=== PATIENT | male | born 1940 | race Caucasian/White ===

== ENCOUNTER → 2017-09-22 14:41 | Outpatient (POV) | payer MEDICARE, OTHER, SELFPAY ==
[2017-09-22 14:52] VITALS: BP 183/117; PULSE 74; RESP 20; O2SAT 98
--- NOTE | 2017-09-22 14:56 | HMH.PAINSOAP ---
[facility] Pain Management SOAP Note Subjective:: This patient is a pleasant 77-year-old white male who we are treating for low back pain and lumbar radiculopathy symptoms as well as bilateral shoulder pain with degenerative joint disease. He had bilateral shoulder injections on his last visit. He did get great benefit from these injections for at least one week. His pain is starting to return however not as bad as previously. His worst pain today is in the left groin in the distribution of the left ilioinguinal/iliohypogastric nerves. I believe that he would benefit from a left ilioinguinal/iliohypogastric injection. We will schedule this for next Thursday. Objective:: Alert and oriented ?3 in no acute distress. Patient does have a normal gait. Tenderness over the left groin. Motor strength of the lower extremities is 5/5. There is no gross sensory deficit. There is decreased range of motion of upper extremities with bilateral shoulder pain. No gross sensory deficit of the upper extremities. Assessment:: Left inguinal neuralgia. Plan:: We will seek approval for a left iliohypogastric/ilioinguinal nerve block. If approved we will schedule for next Thursday
== END ==
PROVIDERS: PCP Family Medicine; Visit Provider Anesthesiology
DX: G58.8 Other specified mononeuropathies (principal)
CPT/HCPCS: 99212

== ENCOUNTER 2017-09-25 11:22 | Day surgery (SDC) | payer MEDICARE, OTHER, SELFPAY ==
[2017-09-25 12:15] VITALS: BP 140/95; BP 193/99; PULSE 68; PULSE 70; RESP 18; TEMP 36.3; O2SAT 97
[2017-09-25 13:10] VITALS: BP 190/98; PULSE 72; RESP 18
--- NOTE | 2017-09-25 13:11 | HMH.PMPROC ---
- Procedure Date: 09/25/17 Time: 13:11 Anesthesiologist:: Santana Belle MD Complications:: None Pre-procedure Diagnosis:: Left inguinal neuralgia Post-procedure Diagnosis:: same Indications for Procedure:: This patient is a pleasant 77-year-old white male who we are treating for low back pain and lumbar radiculopathy symptoms as well as bilateral shoulder pain. At his last follow-up visit he noted increasing left-sided groin pain in the distribution of the left ilioinguinal/iliohypogastric and genitofemoral nerves. He does not have any back pain most of his pain is in the groin radiating to the left testicle. We will do a left iliohypogastric/ilioinguinal/genitofemoral nerve block today to see if this will help with his pain symptoms. Procedure Details:: Informed consent was obtained and the risks and benefits of the procedure was explained to the patient. Patient was taken to the procedure room. The left groin was prepped using ChloraPrep. A 25-gauge needle was used and in a fanlike distribution with deposited 10 mL bupivacaine 0.25% and Depo-Medrol 40 mg in the distribution of the left ilioinguinal/iliohypogastric/genitofemoral nerves. The patient tolerated the procedure well with no complication. Plan and Disposition:: Follow up with him in 2 weeks. We will reevaluate his symptoms at that time.
--- NOTE | 2017-09-25 13:14 | P.PCN_ITS ---
- Procedure Date: 09/25/17 Time: 13:11 Anesthesiologist:: Santana Belle MD Complications:: None Pre-procedure Diagnosis:: Left inguinal neuralgia Post-procedure Diagnosis:: same Indications for Procedure:: This patient is a pleasant 77-year-old white male who we are treating for low back pain and lumbar radiculopathy symptoms as well as bilateral shoulder pain. At his last follow-up visit he noted increasing left-sided groin pain in the distribution of the left ilioinguinal/iliohypogastric and genitofemoral nerves. He does not have any back pain most of his pain is in the groin radiating to the left testicle. We will do a left iliohypogastric/ilioinguinal/ genitofemoral nerve block today to see if this will help with his pain symptoms. Procedure Details:: Informed consent was obtained and the risks and benefits of the procedure was explained to the patient. Patient was taken to the procedure room. The left groin was prepped using ChloraPrep. A 25-gauge needle was used and in a fanlike distribution with deposited 10 mL bupivacaine 0.25% and Depo-Medrol 40 mg in the distribution of the left ilioinguinal/iliohypogastric/genitofemoral nerves. The patient tolerated the procedure well with no complication. Plan and Disposition:: Follow up with him in 2 weeks. We will reevaluate his symptoms at that time.
[2017-09-25 13:32] VITALS: BP 150/85; PULSE 70; RESP 18; TEMP 36.1; O2SAT 96
== END 2017-09-25 13:13 | disposition home or self-care (01) ==
LOC: SC.PAINP 11:25
PROVIDERS: Family Provider Family Medicine; PCP Family Medicine; Visit Provider Anesthesiology
DX: N50.812 Left testicular pain (principal)
CPT/HCPCS: 64425; J1030

== ENCOUNTER 2017-10-06 16:56 | Emergency (ER) | payer MEDICARE, OTHER, SELFPAY ==
[2017-10-06 17:28] VITALS: BP 162/83; PULSE 77; RESP 20; TEMP 36.4; O2SAT 96; BMI 34.3
--- NOTE | 2017-10-06 17:36 | PC.NURSE ---
DEV OPS ENGINEER speaking with Dr Ram at this time.
--- NOTE | 2017-10-06 18:14 | HMH.EDUTC ---
[facility] [place] Disposition Clinical Impression: Anxiety Disposition: Home, Self-Care Condition on Discharge: Good Instructions: DI for Anxiety -- Adult, Anxiety and Panic Attacks (Alternative Therapy) Additional Instructions: Follow up with Dr Cruz in the morning If you began to have further attacks or feeling like you want to harm yourself or others go straight to ER for help Return if needed Take medication as prescribed for anxiety attacks Referrals: Arcadio Cruz MD [Primary Care Provider] - Time of Disposition: 18:35 Medical Decision Making - Medical Records Medical records reviewed: Yes: I reviewed the patient's medical records. Vital Signs: 10/06/17 17:28 Temperature 97.5 F L Temperature Source Temporal Artery Scan Pulse Rate [Left Brachial] 77 Respiratory Rate 20 Blood Pressure [Left Arm] 162/83 Blood Pressure Mean [Left Arm] 109 Blood Pressure Source [Left Arm] Automatic Cuff Blood Pressure Position [Left Arm] Sitting 02 Sat by Pulse Oximetry 96 Oxygen Delivery Method Room Air - Aleksander Inquiry Pt receiving controlled substance: No Aleksander was queried for this patient: No - Reevaluation(s) Time: 18:27 (Patient state that he took his anxiety medication that he is prescribed to take when he has an anxiety attack State that he didn't get to take it when he began having the anxiety so he was well into attack when he took the medication State that the medication wasn't working so he went by Dr Cruz office and they was closed so he came up here After arriving the medication began to work and now he feels much better ) [facility] HPI - General Stated complaint: Anxiety Attack Mode of Arrival: Ambulatory Source of Information: Patient Limitations: No Limitations Description of Symptoms (Recalled from Triage Doc. by RN): pt advises that he began having an anxiety attack two hours ago. pt took hydroxyzine 20mg a hour ago and feels that it made him worse. pt states i feel like ants are crawling on me and i cant stop crying HEENT Symptoms (Recalled from RN notes): No Resp Symptoms (Recalled from RN notes): No Skin Symptoms (Recalled from RN notes): No MS Symptoms (Recalled from RN notes): No Functional Status (Recalled from RN notes): n/a - History of Present Illness Provider Complaint: Patient states that he has a history of anxiety attacks State that earlier today he had an anxiety attack and he took his prescribed medication hydroyzine 25mg State that he didnt feel like it was working so he came in to get checked State that medication now feels like it is working he is no longer feeling anxious like he was and his skin is no longer crawling. State that he is feeling better - Related Data Allergies Allergy/AdvReac Type Severity Reaction Status Date / Time No Known Allergies Allergy Verified 10/06/17 17:36 - Worker's Comp Is this a Worker's Comp case?: No [facility] [place] History I have reviewed the patient's past medical history: Yes Medical History: Reports:: Hypertension Denies:: Cancer, Diabetes Mellitus Type 1, Diabetes Mellitus Type 2, MRSA, Seizures Other Medical History: Reports: Arthritis, Hypothyroidism, Sinus Problems. Denies: Blood Transfusion Reaction Laterality Cases: Left: Total Knee Replacement, Bilateral: Tonsillectomy, Total Hip Replacement Other Surgeries: No: Pacemaker Amputation: No Fractures: No - *Social History Smoking Status: Never smoker Alcohol Intake: never Occupational Status: retired Housing: house Household Members: spouse - Psychiatric History Expresses thoughts of harming self/others: None Suicide Plan Description: No Plan *Family Hx:: No significant family history ROS Obtained: Yes All systems reviewed & no additional complaints - Allergic/Immunologic Comments: anxiety attack earlier today Physical Exam - General General appearance: alert, in no apparent distress - ENT ENT exam: Present: normal exam, normal oropharynx, mucous membranes moist, TM's normal
--- NOTE | 2017-10-06 18:21 | ED_ITS ---
[facility] [place] Disposition Clinical Impression: Anxiety Disposition: Home, Self-Care Condition on Discharge: Good Instructions: DI for Anxiety -- Adult, Anxiety and Panic Attacks (Alternative Therapy) Additional Instructions: Follow up with Dr Cruz in the morning If you began to have further attacks or feeling like you want to harm yourself or others go straight to ER for help Return if needed Take medication as prescribed for anxiety attacks Referrals: Arcadio Cruz MD [Primary Care Provider] - Time of Disposition: 18:35 Medical Decision Making - Medical Records Medical records reviewed: Yes: I reviewed the patient's medical records. Vital Signs: 10/06/17 17:28 Temperature 97.5 F L Temperature Source Temporal Artery Scan Pulse Rate [Left Brachial] 77 Respiratory Rate 20 Blood Pressure [Left Arm] 162/83 Blood Pressure Mean [Left Arm] 109 Blood Pressure Source [Left Arm] Automatic Cuff Blood Pressure Position [Left Arm] Sitting 02 Sat by Pulse Oximetry 96 Oxygen Delivery Method Room Air - Aleksander Inquiry Pt receiving controlled substance: No Aleksander was queried for this patient: No - Reevaluation(s) Time: 18:27 (Patient state that he took his anxiety medication that he is prescribed to take when he has an anxiety attack State that he didn't get to take it when he began having the anxiety so he was well into attack when he took the medication State that the medication wasn't working so he went by Dr Cruz office and they was closed so he came up here After arriving the medication began to work and now he feels much better ) [facility] [place] HPI - General Stated complaint: Anxiety Attack Mode of Arrival: Ambulatory Source of Information: Patient Limitations: No Limitations Description of Symptoms (Recalled from Triage Doc. by RN): pt advises that he began having an anxiety attack two hours ago. pt took hydroxyzine 20mg a hour ago and feels that it made him worse. pt states i feel like ants are crawling on me and i cant stop crying HEENT Symptoms (Recalled from RN notes): No Resp Symptoms (Recalled from RN notes): No Skin Symptoms (Recalled from RN notes): No MS Symptoms (Recalled from RN notes): No Functional Status (Recalled from RN notes): n/a - History of Present Illness Provider Complaint: Patient states that he has a history of anxiety attacks State that earlier today he had an anxiety attack and he took his prescribed medication hydroyzine 25mg State that he didnt feel like it was working so he came in to get checked State that medication now feels like it is working he is no longer feeling anxious like he was and his skin is no longer crawling. State that he is feeling better - Related Data Allergies Allergy/AdvReac Type Severity Reaction Status Date / Time No Known Allergies Allergy Verified 10/06/17 17:36 - Worker's Comp Is this a Worker's Comp case?: No [facility] History I have reviewed the patient's past medical history: Yes Medical History: Reports:: Hypertension Denies:: Cancer, Diabetes Mellitus Type 1, Diabetes Mellitus Type 2, MRSA, Seizures Other Medical History: Reports: Arthritis, Hypothyroidism, Sinus Problems. Denies: Blood Transfusion Reaction Laterality Cases: Left: Total Knee Replacement, Bilateral: Tonsillectomy, Total Hip Replacement Other Surgeries: No: Pacemaker Amputation: No Fractures: No - *Social History Smoking Status: Never smoker Alcohol Intake: never
== END 2017-10-06 18:48 | disposition home or self-care (01) ==
PROVIDERS: Emergency Provider Nurse Practitioner; Family Provider Family Medicine; PCP Family Medicine
DX: F41.9 Anxiety disorder, unspecified (principal); I10 Essential (primary) hypertension; E03.9 Hypothyroidism, unspecified; Z95.0 Presence of cardiac pacemaker
CPT/HCPCS: G0463; 99202

== ENCOUNTER → 2017-10-19 13:02 | Outpatient (POV) | payer MEDICARE, OTHER, SELFPAY ==
[2017-10-19 14:04] VITALS: BP 181/92; PULSE 60; RESP 18; BMI 34.3
[2017-10-19 14:27] LABS: Amphetamine/Metha Screen,Urine Negative ng/mL (<1000); Barbiturates Screen,Urine Negative ng/mL (<200); Benzodiazepines Screen,Urine Negative ng/mL (200); Cannabinoid Screen,Urine Negative ng/mL (<50); Cocaine Screen,Urine Negative ng/g (<300); Methadone Screen,Urine Negative ng/mL (<300); Opiate Screen,Urine Negative ng/mL (<300); Phencyclidine Screen,Urine Negative ng/mL (<25)
--- NOTE | 2017-10-19 14:35 | HMH.PAINSOAP ---
[facility] Pain Management SOAP Note Subjective:: This patient is a pleasant 77-year-old white male who we are treating for low back pain and lumbar radiculopathy symptoms as well as left-sided groin pain. He is status post left iliohypogastric/ilioinguinal nerve block. He did not get much benefit from this injection. He also did not get much benefit from the last lumbar epidural steroid injection. His pain may be coming from his left SI joint. Does have a positive Haim's test. He is tender over the left SI joint. We will seek approval for left SI joint injection under fluoroscopy. Objective:: Alert and oriented ?3 in no acute distress. Patient does have an antalgic gait. Patient is tender over the left SI joint. Positive Haim's test on the left side. Motor strength of the lower extremities is 5/5. There is no gross sensory deficit. Assessment:: Degenerative disc disease of lumbar spine with lumbar radiculopathy symptoms. Sacroiliitis. Plan:: We will seek approval and plan on a left SI joint injection under fluoroscopy.
[2017-10-27 06:22] LABS: Opiates Negative (Cutoff=100)
== END ==
PROVIDERS: Family Provider Family Medicine; PCP Family Medicine; Visit Provider Anesthesiology
DX: M54.16 Radiculopathy, lumbar region (principal)
CPT/HCPCS: 80305; 80361; 99212; G0480

== ENCOUNTER → 2017-10-23 09:57 | Day surgery (SDC) | payer MEDICARE, OTHER, SELFPAY ==
[2017-10-23 10:11] VITALS: BP 136/70; PULSE 70; RESP 18; TEMP 36.4; O2SAT 97; BMI 75.7
--- NOTE | 2017-10-23 11:12 | P.PCN_ITS ---
- Procedure Date: 10/23/17 Time: 11:09 Anesthesiologist:: Santana Belle MD Complications:: None Pre-procedure Diagnosis:: Sacroiliitis Post-procedure Diagnosis:: Same Indications for Procedure:: This patient is a pleasant 77-year-old white male who we are treating for low back pain and lumbar radiculopathy symptoms as well as sacroiliitis. He had a left iliohypogastric/ilioinguinal nerve block to see if this will help with left -sided groin pain however this did not give him much benefit. He does have tenderness over left SI joint. He does have positive Haim's test on left side. We will do a left SI joint injection today to see if this gives him relief of his left groin pain Procedure Details:: Left SI joint injection under fluoroscopy Informed consent was obtained and the risks and benefits of the procedure was going to the patient. Patient was taken to the procedure room. Patient was placed prone on the procedure table. The left hip was prepped using ChloraPrep. The skin and subcutaneous tissues were anesthetized using lidocaine. I placed a 22-gauge spinal needle into the inferior aspect of the left SI joint. Needle placement was confirmed with dye. After this we injected 5 mL bupivacaine 0.25% and Depo-Medrol 40 mg into the left SI joint. The patient tolerated the procedure well with no complication. Plan and Disposition:: We will follow-up with him in 2 weeks. We will reevaluate his symptoms at that time.
[2017-10-23 11:23] VITALS: BP 154/80; PULSE 66; RESP 20; O2SAT 95
[2017-10-23 11:24] VITALS: BP 145/88; PULSE 22; RESP 20; O2SAT 98
[2017-10-23 11:29] VITALS: BP 142/76; PULSE 65; RESP 18; O2SAT 98
== END ==
PROVIDERS: Family Provider Family Medicine; PCP Family Medicine; Visit Provider Anesthesiology
DX: M46.1 Sacroiliitis, not elsewhere classified (principal)
CPT/HCPCS: 27096; G0260; J1030; Q9966

== ENCOUNTER → 2017-11-09 10:12 | Outpatient (POV) | payer MEDICARE, OTHER, SELFPAY ==
[2017-11-09 10:26] VITALS: BP 154/95; PULSE 72; RESP 20; O2SAT 98; BMI 31.5
--- NOTE | 2017-11-09 11:06 | HMH.PAINSOAP ---
[facility] Pain Management SOAP Note Subjective:: Pleasant 77-year-old white male who presents today with due to a flare in his pain. Patient had a SI joint back on the second month. He did well after this. Patient comes with a new complete back pain. Patient states on Thursday he woke up and was unable to move. Patient back pain is mid-level. He rates his pain a 5 out of 10 today patient is currently taking tramadol 50 mg 1 p.o. 3 times daily for muscle as well as gabapentin 600 mg 1 p.o. 3 times daily. Patient is unable to take anti-inflammatories due to heart surgery. Patient better and he however pain returned again on Thursday. ROS General: no recent weight change, no fever, no sleep disturbances Respiratory: no cough, no shortness of air, no recurring pulmonary infections, CPAP use Cardiovascular/Peripheral Vascular: No chest pain, No palpitations, no edema, no shortness of breath. Gastrointestinal: no incontinence, normal bowel movements reported Genitourinary: no incontinence Musculoskeletal: Back pain Psychiatric: normal mood/ affect Neurological: [denies weakness in extremities], uses cane for stability Objective:: Physical Exam General: Alert and oriented x3, no acute distress, pleasant and cooperative, [on room air] Lungs: Resps E/U, Symmetrical chest expansion Musculoskeletal: Flexion and extension of lumbar spine somewhat guarded secondary to pain, deep tendon reflexes normal, strength in upper and lower extremities [5/5], [abnormal gait noted] Neurological: speech clear, on site coordinator equal, no gross sensory deficits Assessment:: Sacroiliitis, chronic low back pain, degenerative disc disease lumbar spine with lumbar radiculopathy Plan:: We will plan to prescribe prednisone 20 mg 1 p.o. twice daily for 5 days. Patient unable to take NSAIDs at this time. We will follow-up with this patient in 2 months. Patient is instructed to call our office if pain does not improve or increases. This note was dictated using voice recognition software and may include omissions or errors
--- NOTE | 2017-11-09 11:10 | P.CONS_ITS ---
[facility] Pain Management SOAP Note Subjective:: Pleasant 77-year-old white male who presents today with due to a flare in his pain. Patient had a SI joint back on the second month. He did well after this. Patient comes with a new complete back pain. Patient states on Thursday he woke up and was unable to move. Patient back pain is mid-level. He rates his pain a 5 out of 10 today patient is currently taking tramadol 50 mg 1 p.o. 3 times daily for muscle as well as gabapentin 600 mg 1 p.o. 3 times daily. Patient is unable to take anti-inflammatories due to heart surgery. Patient better and he however pain returned again on Thursday. ROS General: no recent weight change, no fever, no sleep disturbances Respiratory: no cough, no shortness of air, no recurring pulmonary infections, CPAP use Cardiovascular/Peripheral Vascular: No chest pain, No palpitations, no edema, no shortness of breath. Gastrointestinal: no incontinence, normal bowel movements reported Genitourinary: no incontinence Musculoskeletal: Back pain Psychiatric: normal mood/ affect Neurological: [denies weakness in extremities], uses cane for stability Objective:: Physical Exam General: Alert and oriented x3, no acute distress, pleasant and cooperative, [ on room air] Lungs: Resps E/U, Symmetrical chest expansion Musculoskeletal: Flexion and extension of lumbar spine somewhat guarded secondary to pain, deep tendon reflexes normal, strength in upper and lower extremities [5/5], [abnormal gait noted] Neurological: speech clear, arborer equal, no gross sensory deficits Assessment:: Sacroiliitis, chronic low back pain, degenerative disc disease lumbar spine with lumbar radiculopathy Plan:: We will plan to prescribe prednisone 20 mg 1 p.o. twice daily for 5 days. Patient unable to take NSAIDs at this time. We will follow-up with this patient in 2 months. Patient is instructed to call our office if pain does not improve or increases. This note was dictated using voice recognition software and may include omissions or errors
--- NOTE | 2017-11-09 15:16 | PC.PHONENOTE ---
Rx for Prednisone 20mg BID x5 days phoned in to pt pharmacy per provider order
--- NOTE | 2017-11-26 09:14 | PC.PHONENOTE ---
called in Rx for Gabapentin 600mg TID with 2 refills to [facility] pharmacy
== END ==
PROVIDERS: Family Provider Family Medicine; PCP Family Medicine; Visit Provider Clinical Nurse Specialist Family Health
DX: M54.16 Radiculopathy, lumbar region (principal)
CPT/HCPCS: 99212

== ENCOUNTER 2017-12-01 08:50 | Day surgery (SDC) | payer MEDICARE, OTHER, SELFPAY ==
[2017-11-30 14:04] VITALS: BMI 34.3
[2017-12-01 09:49] VITALS: BP 147/90; PULSE 67; RESP 18; TEMP 36.4; O2SAT 95
[2017-12-01 11:00] LABS: Basophils % 0.6 % (0.1-2.0); Eosinophils # 0.3 K/mm3 (0.0-0.4); Eosinophils % 4.5 % (0.1-12.0); Hematocrit 43.1 % (42.0-52.0); Hemoglobin 14.4 g/dL (14.1-18.0); Lymphocytes # 1.1 K/mm3 (0.7-4.5); Lymphocytes % 16.6 K/mm3 (10-50); Mean Corpuscular HGB Conc 33.4 g/dL (31.8-35.4); Mean Platelet Volume 6.8 fl (7.4-10.4); Monocytes # 0.4 K/mm3 (0.1-1.0); Monocytes % 5.9 % (1.7-9.3); Neutrophils # 4.7 K/mm3 (1.8-7.8); Neutrophils % 72.4 % (37.0-80.0); Platelet Count 194 K/mm3 (142-424); Red Blood Count 4.64 M/mm3 (4.60-6.20); Red Cell Distribution Width 12.6 % (11.5-17.5); White Blood Count 6.5 K/mm3 (4.8-10.8)
[2017-12-01 12:59] LABS: Alanine Aminotransferase 34 U/L (12-78); Albumin Level 3.8 gm/dL (3.4-5.0); Albumin/Globulin Ratio 1.3 (1.1-1.8); Alkaline Phosphatase 66 U/L (46-116); Anion Gap 10.3 mEq/L (5-15); Aspartate Amino Transferase 22 U/L (15-37); Bilirubin,Total 0.5 mg/dL (0.2-1.0); Blood Urea Nitrogen 5 mg/dL (7-18); Calcium 8.9 mg/dL (8.5-10.1); Carbon Dioxide 31 mmol/L (21.0-32.0); Chloride 99 mmol/L (98-107); Creatinine Clearance Estimated 90 mL/min (0-300); Creatinine,Serum 0.94 mg/dL (0.70-1.30); Estimated Glomerular Filt Rate 78 ml/min (>60); GFR (African American) 94 ML/MIN (>60); Globulin 2.9 gm/dl (1.3-3.2); Glucose 96 mg/dL (74-106); Potassium 4.3 mmoL/L (3.5-5.1); Sodium 136 mmol/L (136-145); Total Protein,Serum 6.7 gm/dL (6.4-8.2)
[2017-12-02 08:32] LABS: Immunoglobulin A, Qn 99 mg/dL (61-437); Immunoglobulin G, Qn 728 mg/dL (700-1600)
[2017-12-02 10:31] LABS: Immunoglobulin M, Qn 92 mg/dL (15-143)
[2017-12-02 10:32] LABS: Folate 17.1 ng/mL (>3.0); Vitamin B12 624 pg/mL (232-1245)
== END 2017-12-01 10:20 | disposition home or self-care (01) ==
LOC: OUTP 08:53
PROVIDERS: Internal Medicine Cardiovascular Disease; Specialist; Family Provider Family Medicine; PCP Family Medicine; Visit Provider Ophthalmology
PROC: (CPT 66821; principal; 2017-12-01 10:00)
DX: G62.9 Polyneuropathy, unspecified; I42.9 Cardiomyopathy, unspecified; R20.8 Other disturbances of skin sensation; H26.492 Other secondary cataract, left eye
CPT/HCPCS: 66821; 36415; 80053; 82607; 82746; 82784; 83880; 85025

== ENCOUNTER → 2017-12-07 08:17 | Outpatient (POV) | payer MEDICARE, OTHER, SELFPAY | PROVIDERS: Family Provider Family Medicine; PCP Family Medicine; Visit Provider Specialist | DX: R20.8 Other disturbances of skin sensation (principal) | CPT/HCPCS: 95886; 95910 ==

== ENCOUNTER → 2017-12-07 10:10 | Outpatient (CLI) | payer MEDICARE, OTHER, SELFPAY ==
--- NOTE | 2017-12-07 10:15 | XR_ITS ---
XR cervical spine w flex/ext CLINICAL INDICATION: ITS.REASON: neck pain ORDERING PHYSICIAN: Teresa Gandara MD PATIENT AGE: 77 years COMPARISON: None FINDINGS: There is normal alignment. Multilevel degenerative disc disease is present from C3 to C7 severe in nature with decrease of disc space, osteosclerosis, and osteophyte formation. Mild foraminal narrowing is present on the right at C3-C4 C4-C5 and C5-C6 and on the left at C4-C5 C5-C6 and C6-C7. Incidental carotid artery calcifications are present along with mild biapical pleural thickening noted. No fracture or dislocation. No lytic or blastic change No cervical rib Flexion and extension views show no abnormal subluxation. C6-C7 space is not well delineated on the lateral view in the flexion position IMPRESSION: Cervical spondylosis with degenerative disc disease and osteophyte formation with foraminal narrowing as described above. No abnormal subluxation in flexion or extension. C6-C7 not included on the flexion views. Carotid artery disease
--- NOTE | 2017-12-07 16:02 | HMH.ITSHM ---
VENTYL GABAPENTIN PERCOCET
== END ==
PROVIDERS: Family Provider Family Medicine; PCP Family Medicine; Visit Provider Specialist
DX: M54.2 Cervicalgia (principal); M25.511 Pain in right shoulder; M25.512 Pain in left shoulder
CPT/HCPCS: 72052; 95886; 95910

== ENCOUNTER → 2017-12-08 11:18 | Outpatient (CLI) | payer MEDICARE, OTHER, SELFPAY ==
--- NOTE | 2017-12-08 11:21 | MR_ITS ---
MR cervical spine wo con, MR 3-d myelogram/MRCP HISTORY: PT states neck pain on LT side. Tingling LT shoulder X1-2 weeks. ITS.REASON: NECK PAIN ORDERING PHYSICIAN: Teresa Gandara MD PATIENT AGE: 77 years COMPARISON: X-RAY 12/07/17 TECHNIQUE: Standard multiplanar multiecho sequences are performed without contrast. 3-D MIP and myelographic images are also rendered and reviewed FINDINGS: There is normal alignment. The craniocervical junction has an unremarkable appearance C2-C3: Minimal bulging disc. C3-C4: Severe degenerative disc disease. Prominent uncovertebral osteophytes left more so than right with severe bilateral foraminal narrowing left greater than right and canal stenosis of 7 mm with mild flattening of the cord. C4-C5: Severe degenerative disc disease with severe uncovertebral hypertrophy/osteophytes bilaterally with severe bilateral foraminal narrowing and moderate canal stenosis of 7 mm. C5-C6: Severe degenerative disc disease with prominent central disc osteophyte complex along with bilateral uncovertebral hypertrophy. There is marked canal stenosis of the central canal measuring 4 mm with severe impingement upon and flattening of the cord with contour deformity of the cord at this level bowed posteriorly. Severe bilateral foraminal narrowing also noted. C6-C7: Degenerative disc disease with mild concentric bulging disc with narrowing of the canal at 9 mm. C7-T1: Degenerative disc disease with 2 mm anterolisthesis of C7. T1-T2: Degenerative disc disease with mild bulging disc. Increased T2 signal involves the anterior and inferior aspect of C7 with slight increased T1 signal at this region and may be related to a hemangioma IMPRESSION: Abnormal MRI of the cervical spine with multilevel degenerative disc disease C3-T2. There is resultant canal stenosis, prominent spurring of the uncovertebral joints with resultant canal stenosis and bilateral foraminal narrowing as detailed at each level above. This is most severe at the C5-C6 level. Please see above for detailed description at each level. Severe degenerative disc disease C5-C6 with prominent central disc osteophyte complex along with bilateral uncovertebral hypertrophy. There is marked canal stenosis of the central canal measuring 4 mm with severe impingement upon and flattening of the cord with contour deformity of the cord at this level bowed posteriorly. Severe bilateral foraminal narrowing also noted
== END ==
PROVIDERS: Family Provider Family Medicine; PCP Family Medicine; Visit Provider Specialist
DX: M54.2 Cervicalgia (principal); M25.511 Pain in right shoulder; M25.512 Pain in left shoulder; G62.9 Polyneuropathy, unspecified
CPT/HCPCS: 72141; 76376

== ENCOUNTER → 2017-12-14 08:55 | Outpatient (POV) | payer MEDICARE, OTHER, SELFPAY ==
[2017-12-14 09:08] VITALS: BP 146/90; PULSE 71; RESP 18; TEMP 36.6; O2SAT 99; BMI 33.9
--- NOTE | 2017-12-14 09:24 | HMH.PAINSOAP ---
[facility] Pain Management SOAP Note Subjective:: Patient is a pleasant 77-year-old white male who presents today to discuss his bilateral shoulder pain. Patient has recently been to neurology and had a nerve conduction study. Patient has been ruled that he does not have neuropathy in his feet however he does still experience nerve pain which is well controlled with his gabapentin. Patient is now having some neck and bilateral shoulder pain. Patient is unable to take anti-inflammatories due to cardiac history. Patient had recent MRI of the neck showing pathology. Patient rates his pain a 6 out of 10 today. He is interested in injective therapy. Patient has done well with lumbar epidurals and SI joint injections in the past. ROS General: no recent weight change, no fever, no sleep disturbances Respiratory: no cough, no shortness of air, no recurring pulmonary infections Cardiovascular/Peripheral Vascular: No chest pain, No palpitations, no edema, no shortness of breath. Gastrointestinal: no incontinence, normal bowel movements reported Genitourinary: no incontinence Musculoskeletal: Pain, bilateral shoulder pain Psychiatric: normal mood/ affect, [denies depression], [denies anxiety] Neurological: [denies weakness in extremities], [denies balance issues] Objective:: Physical Exam General: Alert and oriented x3, no acute distress, pleasant and cooperative, [on room air] Lungs: Resps E/U, Symmetrical chest expansion, [CTA bilateral] Eyes: PERRL Musculoskeletal: Flexion and extension of cervical spine somewhat guarded secondary to pain, deep tendon reflexes normal, strength in upper and lower extremities [5/5], slightly antalgic gait noted, negative drop arm test bilaterally Neurological: speech clear, curb builder equal, no gross sensory deficits Ordering Physician: Teresa Gandara MD Date of Service: 12/08/17 Procedure(s): MR cervical spine wo con Accession Number(s): [id number] cc: Anson Durand MD; Arcadio Cruz MD~ MR cervical spine wo con, MR 3-d myelogram/MRCP HISTORY: PT states neck pain on LT side. Tingling LT shoulder X1-2 weeks. ITS.REASON: NECK PAIN ORDERING PHYSICIAN: Teresa Gandara MD PATIENT AGE: 77 years COMPARISON: X-RAY 12/07/17 TECHNIQUE: Standard multiplanar multiecho sequences are performed without contrast. 3-D MIP and myelographic images are also rendered and reviewed FINDINGS: There is normal alignment. The craniocervical junction has an unremarkable appearance C2-C3: Minimal bulging disc. C3-C4: Severe degenerative disc disease. Prominent uncovertebral osteophytes left more so than right with severe bilateral foraminal narrowing left greater than right and canal stenosis of 7 mm with mild flattening of the cord. C4-C5: Severe degenerative disc disease with severe uncovertebral hypertrophy/osteophytes bilaterally with severe bilateral foraminal narrowing and moderate canal stenosis of 7 mm. C5-C6: Severe degenerative disc disease with prominent central disc osteophyte complex along with bilateral uncovertebral hypertrophy. There is marked canal stenosis of the central canal measuring 4 mm with severe impingement upon and flattening of the cord with contour deformity of the cord at this level bowed posteriorly. Severe bilateral foraminal narrowing also noted. C6-C7: Degenerative disc disease with mild concentric bulging disc with narrowing of the canal at 9 mm. C7-T1: Degenerative disc disease with 2 mm anterolisthesis of C7. T1-T2: Degenerative disc disease with mild bulging disc. Increased T2 signal involves the anterior and inferior aspect of C7 with slight increased T1 signal at this region and may be related to a hemangioma IMPRESSION: Abnormal MRI of the cervical spine with multilevel degenerative disc disease C3-T2. There is resultant canal stenosis, prominent spurring of the uncovertebral joints with resultant canal stenosis and bilateral foraminal narrowing as detailed at each leve
--- NOTE | 2017-12-14 09:31 | P.CONS_ITS ---
[facility] Pain Management SOAP Note Subjective:: Patient is a pleasant 77-year-old white male who presents today to discuss his bilateral shoulder pain. Patient has recently been to neurology and had a nerve conduction study. Patient has been ruled that he does not have neuropathy in his feet however he does still experience nerve pain which is well controlled with his gabapentin. Patient is now having some neck and bilateral shoulder pain. Patient is unable to take anti-inflammatories due to cardiac history. Patient had recent MRI of the neck showing pathology. Patient rates his pain a 6 out of 10 today. He is interested in injective therapy. Patient has done well with lumbar epidurals and SI joint injections in the past. ROS General: no recent weight change, no fever, no sleep disturbances Respiratory: no cough, no shortness of air, no recurring pulmonary infections Cardiovascular/Peripheral Vascular: No chest pain, No palpitations, no edema, no shortness of breath. Gastrointestinal: no incontinence, normal bowel movements reported Genitourinary: no incontinence Musculoskeletal: Pain, bilateral shoulder pain Psychiatric: normal mood/ affect, [denies depression], [denies anxiety] Neurological: [denies weakness in extremities], [denies balance issues] Objective:: Physical Exam General: Alert and oriented x3, no acute distress, pleasant and cooperative, [ on room air] Lungs: Resps E/U, Symmetrical chest expansion, [CTA bilateral] Eyes: PERRL Musculoskeletal: Flexion and extension of cervical spine somewhat guarded secondary to pain, deep tendon reflexes normal, strength in upper and lower extremities [5/5], slightly antalgic gait noted, negative drop arm test bilaterally Neurological: speech clear, 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 Tingling LT shoulder X1-2 weeks. ITS.REASON: NECK PAIN ORDERING PHYSICIAN: Teresa Gandara MD PATIENT AGE: 77 years COMPARISON: X-RAY 12/07/17 TECHNIQUE: Standard multiplanar multiecho sequences are performed without contrast. 3-D MIP and myelographic images are also rendered and reviewed FINDINGS: There is normal alignment. The craniocervical junction has an unremarkable appearance C2-C3: Minimal bulging disc. C3-C4: Severe degenerative disc disease. Prominent uncovertebral osteophytes left more so than right with severe bilateral foraminal narrowing left greater than right and canal stenosis of 7 mm with mild flattening of the cord. C4-C5: Severe degenerative disc disease with severe uncovertebral hypertrophy/osteophytes bilaterally with severe bilateral foraminal narrowing and moderate canal stenosis of 7 mm. C5-C6: Severe degenerative disc disease with prominent central disc osteophyte complex along with bilateral uncovertebral hypertrophy. There is marked canal stenosis of the central canal measuring 4 mm with severe impingement upon and flattening of the cord with contour deformity of the cord at this level bowed posteriorly. Severe bilateral foraminal narrowing also noted. C6-C7: Degenerative disc disease with mild concentric bulging disc with narrowing of the canal at 9 mm. C7-T1: Degenerative disc disease with 2 mm anterolisthesis of C7. T1-T2: Degenerative disc disease with mild bulging disc. Increased T2 signal involves the anterior and inferior asp
== END ==
PROVIDERS: Family Provider Family Medicine; PCP Family Medicine; Visit Provider Clinical Nurse Specialist Family Health
DX: M54.16 Radiculopathy, lumbar region (principal); M54.12 Radiculopathy, cervical region
CPT/HCPCS: 99212

== ENCOUNTER 2017-12-16 15:04 | Day surgery (SDC) | payer MEDICARE, OTHER, SELFPAY ==
[2017-12-16 15:45] VITALS: BP 131/77; PULSE 68; RESP 18; TEMP 36.6; O2SAT 97; BMI 33.7
--- NOTE | 2017-12-16 16:09 | HMH.PMPROC ---
- Procedure Date: 12/16/17 Time: 16:09 Anesthesiologist:: Santana Belle MD Complications:: None Pre-procedure Diagnosis:: Degenerative disc disease of cervical spine with cervical radiculopathy symptoms Post-procedure Diagnosis:: Same Indications for Procedure:: This patient is a pleasant 77-year-old white male who we are treating for neck pain with cervical radicular symptoms. He has pain radiating to both shoulders. He is done well with lumbar epidurals and SI joint injections in the past. We will do a cervical epidural steroid injection under fluoroscopy today. Procedure Details:: Cervical epidural steroid injection under fluoroscopy Informed consent was obtained and the risks and benefits of the procedure was explained to the patient. The patient was taken to the procedure room placed prone on the procedure table. The neck was prepped using ChloraPrep. The skin and subcutaneous tissues were anesthetized using lidocaine. I placed a 18-gauge epidural needle into the C5-C6 interspace and advanced using [id number] to air and fluoroscopic guidance. After confirmation of needle placement in the epidural space with dye, I injected 3 mL's lidocaine 1.5% and Depo-Medrol 80 mg. The patient tolerated the procedure well with no complications. Plan and Disposition:: We will follow-up with him in 2 weeks. We will reevaluate his symptoms at that time.
[2017-12-16 16:12] VITALS: BP 185/75; PULSE 80; RESP 18
[2017-12-16 16:14] VITALS: BP 156/74; PULSE 72; RESP 20
--- NOTE | 2017-12-16 16:17 | P.PCN_ITS ---
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 He has pain radiating to both shoulders. He is done well with lumbar epidurals and SI joint injections in the past. We will do a cervical epidural steroid injection under fluoroscopy today. Procedure Details:: Cervical epidural steroid injection under fluoroscopy Informed consent was obtained and the risks and benefits of the procedure was explained to the patient. The patient was taken to the procedure room placed prone on the procedure table. The neck was prepped using ChloraPrep. The skin and subcutaneous tissues were anesthetized using lidocaine. I placed a 18- gauge epidural needle into the C5-C6 interspace and advanced using loss-of- resistance to air and fluoroscopic guidance. After confirmation of needle placement in the epidural space with dye, I injected 3 mL's lidocaine 1.5% and Depo-Medrol 80 mg. The patient tolerated the procedure well with no complications. Plan and Disposition:: We will follow-up with him in 2 weeks. We will reevaluate his symptoms at that time.
[2017-12-16 16:38] VITALS: BP 149/78; PULSE 65; RESP 18; O2SAT 98
== END 2017-12-16 16:24 | disposition home or self-care (01) ==
LOC: SC.PAINP 15:06
PROVIDERS: Family Provider Family Medicine; PCP Family Medicine; Visit Provider Anesthesiology
DX: M50.10 Cervical disc disorder with radiculopathy, unspecified cervical region (principal)
CPT/HCPCS: 62321; J1040; Q9966

== ENCOUNTER → 2018-01-04 11:02 | Outpatient (POV) | payer MEDICARE, OTHER, SELFPAY ==
[2018-01-04 11:36] VITALS: BP 147/77; PULSE 70; RESP 18; O2SAT 98; BMI 33.4
--- NOTE | 2018-01-04 12:10 | HMH.PAINSOAP ---
[facility] Pain Management SOAP Note Subjective:: This patient is a pleasant 77-year-old white male who presents today for follow-up after cervical epidural steroid injection. Patient states he is 98% pain free in his neck. Patient's only complaint is some nerve numbness on his left ear going down into his left shoulder. Patient currently has a neurology consult for a nerve conduction study. Patient is doing well with his gabapentin 600 mg 1 p.o. 3 times daily. He states that he is having no side effects from the medication. Patient is interested in potentially using some compounding cream to help with this numbness he experiences in his ear neck and shoulder. Patient rates his pain only 1 out of 10 today. ROS General: no recent weight change, no fever, no sleep disturbances Respiratory: no cough, no shortness of air, no recurring pulmonary infections Cardiovascular/Peripheral Vascular: No chest pain, No palpitations, no edema, no shortness of breath. Gastrointestinal: no incontinence, normal bowel movements reported Genitourinary: no incontinence Musculoskeletal: Back pain, neck pain, left shoulder pain Psychiatric: normal mood/ affect Neurological: [denies weakness in extremities], [denies balance issues] Objective:: Physical Exam General: Alert and oriented x3, no acute distress, pleasant and cooperative, [on room air] Lungs: Resps E/U, Symmetrical chest expansion, Eyes: PERRL Musculoskeletal: Flexion and extension of cervical spine somewhat guarded secondary to pain, deep tendon reflexes normal, strength in upper and lower extremities [5/5], slightly antalgic gait noted Neurological: speech clear, facility coordinator equal, no gross sensory deficits Assessment:: Degenerative disc disease of the cervical spine with cervical radiculopathy symptoms Plan:: We will follow-up with this patient after his nerve conduction study patient is not in the need for a gabapentin refill at this time. We will order some compounding cream for this patient to see if this helps with his numbness in his left neck and shoulder. This note was dictated using voice recognition software and may contain errors or omissions
--- NOTE | 2018-01-04 12:13 | P.CONS_ITS ---
[facility] Pain Management SOAP Note Subjective:: This patient is a pleasant 77-year-old white male who presents today for follow- up after cervical epidural steroid injection. Patient states he is 98% pain free in his neck. Patient's only complaint is some nerve numbness on his left ear going down into his left shoulder. Patient currently has a neurology consult for a nerve conduction study. Patient is doing well with his gabapentin 600 mg 1 p.o. 3 times daily. He states that he is having no side effects from the medication. Patient is interested in potentially using some compounding cream to help with this numbness he experiences in his ear neck and shoulder. Patient rates his pain only 1 out of 10 today. ROS General: no recent weight change, no fever, no sleep disturbances Respiratory: no cough, no shortness of air, no recurring pulmonary infections Cardiovascular/Peripheral Vascular: No chest pain, No palpitations, no edema, no shortness of breath. Gastrointestinal: no incontinence, normal bowel movements reported Genitourinary: no incontinence Musculoskeletal: Back pain, neck pain, left shoulder pain Psychiatric: normal mood/ affect Neurological: [denies weakness in extremities], [denies balance issues] Objective:: Physical Exam General: Alert and oriented x3, no acute distress, pleasant and cooperative, [ on room air] Lungs: Resps E/U, Symmetrical chest expansion, Eyes: PERRL Musculoskeletal: Flexion and extension of cervical spine somewhat guarded secondary to pain, deep tendon reflexes normal, strength in upper and lower extremities [5/5], slightly antalgic gait noted Neurological: speech clear, ribbon weaver equal, no gross sensory deficits Assessment:: Degenerative disc disease of the cervical spine with cervical radiculopathy symptoms Plan:: We will follow-up with this patient after his nerve conduction study patient is not in the need for a gabapentin refill at this time. We will order some compounding cream for this patient to see if this helps with his numbness in his left neck and shoulder. This note was dictated using voice recognition software and may contain errors or omissions
== END ==
PROVIDERS: Family Provider Family Medicine; PCP Family Medicine; Visit Provider Clinical Nurse Specialist Family Health
DX: M54.12 Radiculopathy, cervical region (principal)
CPT/HCPCS: 99212

== ENCOUNTER → 2018-01-18 14:16 | Outpatient (POV) | payer MEDICARE, OTHER, SELFPAY | PROVIDERS: Family Provider Family Medicine; PCP Family Medicine; Visit Provider Specialist | DX: G62.9 Polyneuropathy, unspecified (principal); R20.2 Paresthesia of skin | CPT/HCPCS: 95886; 95908 ==

== ENCOUNTER → 2018-02-08 10:31 | Outpatient (POV) | payer MEDICARE, OTHER, SELFPAY ==
[2018-02-08 10:40] VITALS: BP 150/83; PULSE 61; RESP 18; O2SAT 97; BMI 33.5
--- NOTE | 2018-02-08 10:59 | HMH.PAINSOAP ---
[facility] Pain Management SOAP Note Subjective:: Patient is a pleasant 77-year-old white male who presents today for follow-up. Patient has done well with his cervical epidurals in the past. Patient is interested in pursuing another one. Patient has had a nerve conduction study which he states did not help him much. Patient has also started a compounding cream and he states he is having some success with that. Patient is interested in a repeat injection today. Patient rates his pain a 6 out of 10. Patient also had Brookneal in the past as needed. Patient would like to have a refill. Patient has not had this for over a year. ROS General: no recent weight change, no fever, no sleep disturbances Respiratory: no cough, no shortness of air, no recurring pulmonary infections Cardiovascular/Peripheral Vascular: No chest pain, No palpitations, no edema, no shortness of breath. Gastrointestinal: no incontinence, normal bowel movements reported Genitourinary: no incontinence Musculoskeletal: neck pain, left arm pain Psychiatric: normal mood/ affect, [denies depression], [denies anxiety] Neurological: [denies weakness in extremities], [denies balance issues] Objective:: Physical Exam General: Alert and oriented x3, no acute distress, pleasant and cooperative, [on room air] Lungs: Resps E/U, Symmetrical chest expansion, Eyes: PERRL Musculoskeletal: Flexion and extension of cervical spine somewhat guarded secondary to pain, deep tendon reflexes normal, strength in upper and lower extremities [5/5], normal gait noted Neurological: speech clear, 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 Patient has received 80-90% relief for 2 months after his last injection. Patient currently in physical therapy. I will follow-up with this patient after his injection. We will also give the patient 1 prescription for Brookneal 5 mg 1 p.o. twice daily. Patient and I had a discussion about his benzodiazepines along with his medication he understands the risks. Patient's MATEO reviewed and appropriate. Dr. Belle has reviewed this chart and agrees with this plan of care. Patient has been prescribed a controlled substance after being counseled on the medication, medication safety, and possible side effects. MATEO report has been obtained and reviewed prior to prescription and found to be appropriate. Opioid contract was reviewed and signed by the patient, and that they have agreed to all of the terms set forth by our compliance program. This note was dictated using voice recognition software and may contain errors or omissions
--- NOTE | 2018-02-08 11:03 | P.CONS_ITS ---
[facility] Pain Management SOAP Note Subjective:: Patient is a pleasant 77-year-old white male who presents today for follow-up. Patient has done well with his cervical epidurals in the past. Patient is interested in pursuing another one. Patient has had a nerve conduction study which he states did not help him much. Patient has also started a compounding cream and he states he is having some success with that. Patient is interested in a repeat injection today. Patient rates his pain a 6 out of 10. Patient also had Wing in the past as needed. Patient would like to have a refill. Patient has not had this for over a year. ROS General: no recent weight change, no fever, no sleep disturbances Respiratory: no cough, no shortness of air, no recurring pulmonary infections Cardiovascular/Peripheral Vascular: No chest pain, No palpitations, no edema, no shortness of breath. Gastrointestinal: no incontinence, normal bowel movements reported Genitourinary: no incontinence Musculoskeletal: neck pain, left arm pain Psychiatric: normal mood/ affect, [denies depression], [denies anxiety] Neurological: [denies weakness in extremities], [denies balance issues] Objective:: Physical Exam General: Alert and oriented x3, no acute distress, pleasant and cooperative, [ on room air] Lungs: Resps E/U, Symmetrical chest expansion, Eyes: PERRL Musculoskeletal: Flexion and extension of cervical spine somewhat guarded secondary to pain, deep tendon reflexes normal, strength in upper and lower extremities [5/5], normal gait noted Neurological: speech clear, rn physician office equal, no gross sensory deficits Assessment:: Degenerative disc disease of the cervical spine with cervical radiculopathy Plan:: We will schedule a C5-C6 cervical injection for this patient given the efficacy of it in the past. Patient has received 80-90% relief for 2 months after his last injection. Patient currently in physical therapy. I will follow-up with this patient after his injection. We will also give the patient 1 prescription for Wing 5 mg 1 p.o. twice daily. Patient and I had a discussion about his benzodiazepines along with his medication he understands the risks. Patient's MATEO reviewed and appropriate. Dr. Belle has reviewed this chart and agrees with this plan of care. Patient has been prescribed a controlled substance after being counseled on the medication, medication safety, and possible side effects. MATEO report has been obtained and reviewed prior to prescription and found to be appropriate. Opioid contract was reviewed and signed by the patient, and that they have agreed to all of the terms set forth by our compliance program. This note was dictated using voice recognition software and may contain errors or omissions
== END ==
PROVIDERS: Family Provider Family Medicine; PCP Family Medicine; Visit Provider Clinical Nurse Specialist Family Health
DX: M54.12 Radiculopathy, cervical region (principal)
CPT/HCPCS: 99212

== ENCOUNTER 2018-02-18 15:00 | Outpatient (RCR) | payer MEDICARE, OTHER, SELFPAY ==
--- NOTE | 2018-01-22 14:34 | HMH.PTOPEV ---
Rehab Outpatient Evaluation Rehab OP Evaluation Start: 01/22/18 14:02 Freq: Status: Active Protocol: Document 01/22/18 14:02 LIBBYQUYEN (Rec: 01/22/18 14:33 SAMI [id number]) Electronically Signed By Niko Rodriguez, PT 01/22/18 14:02 Outpatient Therapy Subjective History Subjective History Patient is a 77 year old male presenting to outpatient PT with reports of chronic cervical spine and shoulder pain of insidious onset that has progressively gotten worse over the past month. 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 Special tests indicate bilateral rotator cuff impingement. He was referred with the diagnosis of cervical spondylosis and shoulder pain . Chief Complaint Pain Stiff Clicks Symptom Type Ache Tingling Symptoms Relieved By Rest/Positioning Ice Prescription Meds Prior Functional Limitations None Current Functional Limitations Reaching Lifting Housework Dressing Driving Sleeping Recreation Activity Symptom Description Intermittent Level of pain today (0-10) 3 Pain scale - at its best (0-10) 8 Pain scale - at its worst (0-10) 0 Cervical Eval Palpation Cervical Muscles R Upper Trapezius L Upper Trapezius Cervical/Thoracic Palpation Findings Tenderness Posture Head/C-Spine Posture Sitting Position C-Spine Flattened Flexibility Deficits Upper Trapezius Muscle Length (R) Moderate Tightness (L) Moderate Tightness Levaetor Scapulae Muscle Length (R) Moderate Tightness (L) Moderate Tightness Pectoralis Minor Muscle Length (R) Moderate Tightness (L) Moderate Tightness Passive Joint Mobility Cervical PIVM Dec: R OA L OA R AA L AA R C2/3 L C2/3
== END 2018-02-18 15:01 | disposition home or self-care (01) ==
LOC: PT 15:00
PROVIDERS: Family Provider Family Medicine; PCP Family Medicine; Visit Provider Specialist
DX: M47.812 Spondylosis without myelopathy or radiculopathy, cervical region (principal); M54.9 Dorsalgia, unspecified; M54.2 Cervicalgia; M25.511 Pain in right shoulder
CPT/HCPCS: 97010; 97012; 97014; 97035; 97110; 97140; 97163; G0283

== ENCOUNTER → 2018-03-01 14:02 | Outpatient (POV) | payer MEDICARE, OTHER, SELFPAY ==
[2018-03-01 14:25] VITALS: BP 156/97; PULSE 77; RESP 18; O2SAT 98; BMI 32.6
--- NOTE | 2018-03-01 14:53 | HMH.PAINSOAP ---
[facility] Pain Management SOAP Note Subjective:: Patient is a pleasant 77-year-old white male who presents today for follow-up after cervical epidural steroid injection. Patient states he has 90% relief of his symptoms. Patient rates his pain a 2 out of 10 today. Patient states that his compounding cream does help his symptoms. Patient also needs a refill on his gabapentin 600 mg 1 tab p.o. 3 times daily. Agents MATEO #[id number] reviewed and appropriate. ROS General: no recent weight change, no fever, no sleep disturbances Respiratory: no cough, no shortness of air, no recurring pulmonary infections Cardiovascular/Peripheral Vascular: No chest pain, No palpitations, no edema, no shortness of breath. Gastrointestinal: no incontinence, normal bowel movements reported Genitourinary: no incontinence Musculoskeletal:neck Pain, left arm pain Psychiatric: normal mood/ affect Neurological: [denies weakness in extremities], [denies balance issues] Objective:: Physical Exam General: Alert and oriented x3, no acute distress, pleasant and cooperative, [on room air] Lungs: Resps E/U, Symmetrical chest expansion Eyes: PERRL Musculoskeletal: Flexion and extension of cervical spine somewhat guarded secondary to pain, deep tendon reflexes normal, strength in upper and lower extremities [5/5], slightly antalgic gait noted Neurological: speech clear, 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 Plan:: We will follow-up with this patient in 2 months. We will refill his gabapentin 600 mg 1 tab p.o. 3 times daily. Patient's MATEO reviewed and appropriate. Dr. Belle is reviewed this chart and agrees with this plan of care. Patient has been instructed to call the office if his pain begins to return prior to his next appointment. This note was dictated using voice recognition software and may contain errors or omissions
--- NOTE | 2018-03-01 14:56 | P.CONS_ITS ---
[facility] Pain Management SOAP Note Subjective:: Patient is a pleasant 77-year-old white male who presents today for follow-up after cervical epidural steroid injection. Patient states he has 90% relief of his symptoms. Patient rates his pain a 2 out of 10 today. Patient states that his compounding cream does help his symptoms. Patient also needs a refill on his gabapentin 600 mg 1 tab p.o. 3 times daily. Agents MATEO #[id number] reviewed and appropriate. ROS General: no recent weight change, no fever, no sleep disturbances Respiratory: no cough, no shortness of air, no recurring pulmonary infections Cardiovascular/Peripheral Vascular: No chest pain, No palpitations, no edema, no shortness of breath. Gastrointestinal: no incontinence, normal bowel movements reported Genitourinary: no incontinence Musculoskeletal:neck Pain, left arm pain Psychiatric: normal mood/ affect Neurological: [denies weakness in extremities], [denies balance issues] Objective:: Physical Exam General: Alert and oriented x3, no acute distress, pleasant and cooperative, [ on room air] Lungs: Resps E/U, Symmetrical chest expansion Eyes: PERRL Musculoskeletal: Flexion and extension of cervical spine somewhat guarded secondary to pain, deep tendon reflexes normal, strength in upper and lower extremities [5/5], slightly antalgic gait noted Neurological: speech clear, substance addiction coordinator equal, no gross sensory deficits Assessment:: 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 Plan:: We will follow-up with this patient in 2 months. We will refill his gabapentin 600 mg 1 tab p.o. 3 times daily. Patient's MATEO reviewed and appropriate. Dr. Belle is reviewed this chart and agrees with this plan of care. Patient has been instructed to call the office if his pain begins to return prior to his next appointment. This note was dictated using voice recognition software and may contain errors or omissions
[2018-03-01 18:59] LABS: Amphetamine/Metha Screen,Urine Negative ng/mL (<1000); Barbiturates Screen,Urine Positive ng/mL (<200); Benzodiazepines Screen,Urine Negative ng/mL (200); Cannabinoid Screen,Urine Negative ng/mL (<50); Cocaine Screen,Urine Negative ng/g (<300); Methadone Screen,Urine Negative ng/mL (<300); Opiate Screen,Urine Negative ng/mL (<300); Phencyclidine Screen,Urine Negative ng/mL (<25)
[2018-03-12 19:57] LABS: Opiates Negative (Cutoff=100)
== END ==
PROVIDERS: Family Provider Family Medicine; PCP Family Medicine; Visit Provider Clinical Nurse Specialist Family Health
DX: Z79.899 Other long term (current) drug therapy (principal); M54.12 Radiculopathy, cervical region
CPT/HCPCS: 80305; 80361; 80365; 99212; G0480

== ENCOUNTER → 2018-04-12 08:29 | Outpatient (CLI) | payer MEDICARE, OTHER, SELFPAY ==
[2018-04-12 10:04] LABS: Alanine Aminotransferase 27 U/L (12-78); Albumin Level 3.8 gm/dL (3.4-5.0); Alkaline Phosphatase 83 U/L (46-116); Aspartate Amino Transferase 16 U/L (15-37); Bilirubin,Direct 0.1 mg/dL (0.0-0.2); Bilirubin,Indirect 0.3 mg/dL (0.0-0.9); Bilirubin,Total 0.4 mg/dL (0.2-1.0); Chol/HDL Ratio 4.1 (1-3.5); Cholesterol 221 mg/dL (140-200); HDL Cholesterol 54 mg/dL (27-67); LDL Cholesterol 139 mg/dL (0-130); Total Protein,Serum 6.8 gm/dL (6.4-8.2); Triglycerides 142 mg/dL (30-200); VLDL Cholesterol 28 mg/dL (0-40)
== END ==
PROVIDERS: Visit Provider Internal Medicine Cardiovascular Disease
DX: I10 Essential (primary) hypertension (principal); E78.5 Hyperlipidemia, unspecified
CPT/HCPCS: 36415; 80061; 80076

== ENCOUNTER → 2018-04-19 10:14 | Outpatient (POV) | payer MEDICARE, OTHER, SELFPAY ==
[2018-04-19 10:34] VITALS: BP 141/88; PULSE 71; RESP 18; O2SAT 98; BMI 32.6
--- NOTE | 2018-04-19 10:42 | P.CONS_ITS ---
[facility] Pain Management SOAP Note Subjective:: Is a pleasant 77-year-old white male who presents today for follow-up. Patient had a cervical epidural steroid injection several months ago and had good relief with it. Patient states that his pain is beginning to return. Patient has numbness and tingling in his left shoulder and arm. Patient states that this was relieved with his last epidural. Patient would like to move forward with another one. He rates his pain a 4 out of 10 today. Patient also on gabapentin along with a compounding cream. Patient's MATEO #[id number] reviewed. ROS General: no recent weight change, no fever, no sleep disturbances Respiratory: no cough, no shortness of air, no recurring pulmonary infections Cardiovascular/Peripheral Vascular: No chest pain, No palpitations, no edema, no shortness of breath. Gastrointestinal: no incontinence, normal bowel movements reported Genitourinary: no incontinence Musculoskeletal: Pain, left arm pain Psychiatric: normal mood/ affect Neurological: [denies weakness in extremities], [denies balance issues] Objective:: Physical Exam General: Alert and oriented x3, no acute distress, pleasant and cooperative, [ on room air] Lungs: Resps E/U, Symmetrical chest expansion, Eyes: PERRL Musculoskeletal: Flexion and extension of cervical spine somewhat guarded secondary to pain, deep tendon reflexes normal, strength in upper and lower extremities [5/5], slightly antalgic gait noted Neurological: speech clear, ribbon lapper tender equal, no gross sensory deficits Assessment:: Degenerative disc disease of cervical spine and cervical radiculopathy symptoms Plan:: We will schedule a C5-C6 cervical epidural steroid injection for the patient patient has had good relief with this in the past. Patient is not on any anticoagulation therapy. I will follow-up with the patient after his injection. This note was dictated using voice recognition software and may contain errors or omissions
== END ==
PROVIDERS: Family Provider Family Medicine; PCP Family Medicine; Visit Provider Clinical Nurse Specialist Family Health
DX: M50.10 Cervical disc disorder with radiculopathy, unspecified cervical region (principal)
CPT/HCPCS: 99212

== ENCOUNTER → 2018-05-11 08:33 | Outpatient (CLI) | payer MEDICARE, OTHER, SELFPAY ==
[2018-05-11 09:45] LABS: Chol/HDL Ratio 3.7 (1-3.5); Cholesterol 202 mg/dL (140-200); HDL Cholesterol 55 mg/dL (27-67); LDL Cholesterol 123 mg/dL (0-130); Triglycerides 118 mg/dL (30-200); VLDL Cholesterol 24 mg/dL (0-40)
== END ==
PROVIDERS: Family Provider Family Medicine; PCP Family Medicine; Visit Provider Urology
DX: I10 Essential (primary) hypertension (principal)
CPT/HCPCS: 36415; 80061

== ENCOUNTER → 2018-05-11 09:27 | Outpatient (POV) | payer MEDICARE, OTHER, SELFPAY ==
[2018-05-11 09:39] VITALS: BP 157/94; PULSE 75; RESP 18; O2SAT 97; BMI 33.3
--- NOTE | 2018-05-11 09:56 | HMH.PAINSOAP ---
[facility] Pain Management SOAP Note Subjective:: Patient is a pleasant 77-year-old white male who presents today for follow-up after cervical epidural steroid injection. Patient is had significant relief in his pain today 2 out of 10. Patient is off of his [place]. Patient would like to decrease his gabapentin. Patient is overall doing very well he states that he is much more functional. Patient states that his shoulder range of motion has improved as well. ROS General: no recent weight change, no fever, no sleep disturbances Respiratory: no cough, no shortness of air, no recurring pulmonary infections Cardiovascular/Peripheral Vascular: No chest pain, No palpitations, no edema, no shortness of breath. Gastrointestinal: no incontinence, normal bowel movements reported Genitourinary: no incontinence Musculoskeletal: Neck pain Psychiatric: normal mood/ affect Neurological: [denies weakness in extremities], [denies balance issues] Objective:: Physical Exam General: Alert and oriented x3, no acute distress, pleasant and cooperative, [on room air] Lungs: Resps E/U, Symmetrical chest expansion, Eyes: PERRL Musculoskeletal: Flexion and extension of cervical spine somewhat guarded secondary to pain, deep tendon reflexes normal, strength in upper and lower extremities [5/5], slightly antalgic gait noted Neurological: speech clear, reverse unit operator equal, no gross sensory deficits Assessment:: 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 3 times daily. We will follow-up with him in 2 months and see how he is doing. Patient's been instructed to call the office if he has any issues prior to his next appointment. Patient currently doing very well after injective therapy. This note was dictated using voice recognition software and may contain errors or omissions
== END ==
PROVIDERS: Family Provider Family Medicine; PCP Family Medicine; Visit Provider Clinical Nurse Specialist Family Health
DX: M50.10 Cervical disc disorder with radiculopathy, unspecified cervical region (principal)
CPT/HCPCS: 36415; 80061; 99213

== ENCOUNTER → 2018-07-07 20:03 | Outpatient (CLI) | payer MEDICARE, OTHER, SELFPAY | PROVIDERS: PCP Family Medicine; Visit Provider Nurse Practitioner Family | DX: G47.33 Obstructive sleep apnea (adult) (pediatric) (principal) | CPT/HCPCS: 95811 ==

== ENCOUNTER → 2018-07-12 12:57 | Outpatient (POV) | payer MEDICARE, OTHER, SELFPAY ==
[2018-07-12 13:37] VITALS: BP 160/89; PULSE 70; RESP 18; O2SAT 98; BMI 33.3
--- NOTE | 2018-07-12 14:22 | HMH.PAINSOAP ---
[facility] Pain Management SOAP Note Subjective:: Patient is a pleasant 78-year-old white male who presents today for follow-up. Patient is having neck and low back pain. Patient with a repeat a cervical epidural steroid injection and a lumbar epidural steroid injection. Patient has had both with good relief in the past. Patient is doing well otherwise. Patient rates his pain a 5 out of 10 today. Patient is not on anticoagulation therapy. ROS General: no recent weight change, no fever, no sleep disturbances Respiratory: no cough, no shortness of air, no recurring pulmonary infections Cardiovascular/Peripheral Vascular: No chest pain, No palpitations, no edema, no shortness of breath. Gastrointestinal: no incontinence, normal bowel movements reported Genitourinary: no incontinence Musculoskeletal: Neck pain, back pain Psychiatric: normal mood/ affect Neurological: [denies weakness in extremities], [denies balance issues] Objective:: Physical Exam General: Alert and oriented x3, no acute distress, pleasant and cooperative, [on room air] Lungs: Resps E/U, Symmetrical chest expansion, Eyes: PERRL Musculoskeletal: Flexion and extension of cervical and lumbar spine somewhat guarded secondary to pain, deep tendon reflexes normal, strength in upper and lower extremities [5/5], [abnormal gait noted] Neurological: speech clear, case packer and sealer equal, no gross sensory deficits Assessment:: Degenerative disc disease lumbar spine with lumbar radiculopathy and degenerative disc disease of the cervical spine with cervical radiculopathy Plan:: We will schedule C5-C6 cervical epidural steroid injection for the patient and then in 3 weeks we will have him follow with lumbar epidural steroid injection at L4-L5. Patient is not on any anticoagulation therapy. I will follow-up with patient after his injections. This note was dictated using voice recognition software and may contain errors or omissions
--- NOTE | 2018-07-12 14:25 | P.CONS_ITS ---
[facility] Pain Management SOAP Note Subjective:: Patient is a pleasant 78-year-old white male who presents today for follow-up. Patient is having neck and low back pain. Patient with a repeat a cervical epidural steroid injection and a lumbar epidural steroid injection. Patient has had both with good relief in the past. Patient is doing well otherwise. Patient rates his pain a 5 out of 10 today. Patient is not on anticoagulation therapy. ROS General: no recent weight change, no fever, no sleep disturbances Respiratory: no cough, no shortness of air, no recurring pulmonary infections Cardiovascular/Peripheral Vascular: No chest pain, No palpitations, no edema, no shortness of breath. Gastrointestinal: no incontinence, normal bowel movements reported Genitourinary: no incontinence Musculoskeletal: Neck pain, back pain Psychiatric: normal mood/ affect Neurological: [denies weakness in extremities], [denies balance issues] Objective:: Physical Exam General: Alert and oriented x3, no acute distress, pleasant and cooperative, [on room air] Lungs: Resps E/U, Symmetrical chest expansion, Eyes: PERRL Musculoskeletal: Flexion and extension of cervical and lumbar spine somewhat guarded secondary to pain, deep tendon reflexes normal, strength in upper and lower extremities [5/5], [abnormal gait noted] Neurological: speech clear, police reserves commander equal, no gross sensory deficits Assessment:: Degenerative disc disease lumbar spine with lumbar radiculopathy and degenerativ e disc disease of the cervical spine with cervical radiculopathy Plan:: We will schedule C5-C6 cervical epidural steroid injection for the patient and then in 3 weeks we will have him follow with lumbar epidural steroid injection at L4-L5. Patient is not on any anticoagulation therapy. I will follow-up with patient after his injections. This note was dictated using voice recognition software and may contain errors or omissions
== END ==
PROVIDERS: Family Provider Family Medicine; PCP Family Medicine; Visit Provider Clinical Nurse Specialist Family Health
DX: M51.16 Intervertebral disc disorders with radiculopathy, lumbar region (principal); M50.10 Cervical disc disorder with radiculopathy, unspecified cervical region
CPT/HCPCS: 99213

== ENCOUNTER → 2018-08-17 08:14 | Outpatient (CLI) | payer MEDICARE, OTHER, SELFPAY ==
[2018-08-17 09:55] LABS: Alanine Aminotransferase 34 U/L (12-78); Albumin Level 3.9 gm/dL (3.4-5.0); Alkaline Phosphatase 92 U/L (46-116); Aspartate Amino Transferase 21 U/L (15-37); Bilirubin,Direct 0.2 mg/dL (0.0-0.2); Bilirubin,Indirect 0.4 mg/dL (0.0-0.9); Bilirubin,Total 0.6 mg/dL (0.2-1.0); Chol/HDL Ratio 2.2 (1-3.5); Cholesterol 139 mg/dL (140-200); HDL Cholesterol 64 mg/dL (27-67); LDL Cholesterol 61 mg/dL (0-130); Total Protein,Serum 6.9 gm/dL (6.4-8.2); Triglycerides 70 mg/dL (30-200); VLDL Cholesterol 14 mg/dL (0-40)
== END ==
PROVIDERS: Visit Provider Internal Medicine Cardiovascular Disease
DX: E78.5 Hyperlipidemia, unspecified (principal); F41.9 Anxiety disorder, unspecified; G62.9 Polyneuropathy, unspecified; I10 Essential (primary) hypertension; I25.10 Atherosclerotic heart disease of native coronary artery without angina pectoris; I42.9 Cardiomyopathy, unspecified; Z95.1 Presence of aortocoronary bypass graft
CPT/HCPCS: 36415; 80061; 80076

== ENCOUNTER → 2018-09-06 10:34 | Outpatient (POV) | payer MEDICARE, OTHER, SELFPAY ==
[2018-09-06 10:57] VITALS: BP 179/89; PULSE 68; RESP 18; O2SAT 98; BMI 32.8
--- NOTE | 2018-09-06 11:02 | HMH.PAINSOAP ---
[facility] Pain Management SOAP Note Subjective:: Patient is a pleasant 78-year-old white male who we are treating for low back pain and bilateral foot pain. Patient is tried gabapentin for quite some time however he is having side effects to it. Patient states is very difficult to function on the medication. Patient has not tried Lyrica. He states that his last lumbar epidural steroid injection helped significantly however the burning in his feet is what his is his main concern today. He rates that pain a 6 out of 10 today. ROS General: no recent weight change, no fever, no sleep disturbances Respiratory: no cough, no shortness of air, no recurring pulmonary infections Cardiovascular/Peripheral Vascular: No chest pain, No palpitations, no edema, no shortness of breath. Gastrointestinal: no incontinence, normal bowel movements reported Genitourinary: no incontinence Musculoskeletal: Back pain, leg pain, foot pain Psychiatric: normal mood/ affect Neurological: [denies weakness in extremities], [denies balance issues] Objective:: Physical Exam General: Alert and oriented x3, no acute distress, pleasant and cooperative, [on room air] Lungs: Resps E/U, Symmetrical chest expansion, Eyes: PERRL Musculoskeletal: Flexion and extension of lumbar spine somewhat guarded secondary to pain, deep tendon reflexes normal, strength in upper and lower extremities [5/5], slightly antalgic gait noted Neurological: speech clear, mechanical spreader operator equal, no gross sensory deficits Assessment:: 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 twice daily for 2 weeks and see if this is beneficial for him. We will follow-up with the patient in 1 month. Patient can call if this is beneficial. Patient's tried and failed gabapentin, amitriptyline. This note was dictated using voice recognition software and may contain errors or omissions
--- NOTE | 2018-09-06 11:05 | P.CONS_ITS ---
[facility] Pain Management SOAP Note Subjective:: Patient is a pleasant 78-year-old white male who we are treating for low back pain and bilateral foot pain. Patient is tried gabapentin for quite some time however he is having side effects to it. Patient states is very difficult to function on the medication. Patient has not tried Lyrica. He states that his last lumbar epidural steroid injection helped significantly however the burning in his feet is what his is his main concern today. He rates that pain a 6 out of 10 today. ROS General: no recent weight change, no fever, no sleep disturbances Respiratory: no cough, no shortness of air, no recurring pulmonary infections Cardiovascular/Peripheral Vascular: No chest pain, No palpitations, no edema, no shortness of breath. Gastrointestinal: no incontinence, normal bowel movements reported Genitourinary: no incontinence Musculoskeletal: Back pain, leg pain, foot pain Psychiatric: normal mood/ affect Neurological: [denies weakness in extremities], [denies balance issues] Objective:: Physical Exam General: Alert and oriented x3, no acute distress, pleasant and cooperative, [on room air] Lungs: Resps E/U, Symmetrical chest expansion, Eyes: PERRL Musculoskeletal: Flexion and extension of lumbar spine somewhat guarded secondary to pain, deep tendon reflexes normal, strength in upper and lower extremities [5/5], slightly antalgic gait noted Neurological: speech clear, in store demonstrator equal, no gross sensory deficits Assessment:: 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 twice daily for 2 weeks and see if this is beneficial for him. We will follow-up with the patient in 1 month. Patient can call if this is beneficial. Patient's tried and failed gabapentin, amitriptyline. This note was dictated using voice recognition software and may contain errors or omissions
== END ==
PROVIDERS: PCP Family Medicine; Visit Provider Clinical Nurse Specialist Family Health
DX: M51.16 Intervertebral disc disorders with radiculopathy, lumbar region (principal); G62.9 Polyneuropathy, unspecified
CPT/HCPCS: 99213

== ENCOUNTER → 2018-10-11 11:12 | Outpatient (POV) | payer MEDICARE, BC, SELFPAY ==
[2018-10-11 11:27] VITALS: BP 142/77; PULSE 68; RESP 18; O2SAT 98; BMI 33.3
--- NOTE | 2018-10-11 12:47 | HMH.PAINSOAP ---
[facility] Pain Management SOAP Note Subjective:: Is a pleasant 78-year-old white male who presents today for follow-up. Patient is overall doing well rating his pain a 2 out of 10 however he is having additional shoulder pain. Patient has had intra-articular shoulder injections before with not much relief during examination most of his tenderness is around his AC joints. Patient has not tried an AC joint injection before. Patient is continuing Lyrica and doing well with this. He is on anti-inflammatories. Patient states injective therapy has been very helpful for him. ROS General: no recent weight change, no fever, no sleep disturbances Respiratory: no cough, no shortness of air, no recurring pulmonary infections Cardiovascular/Peripheral Vascular: No chest pain, No palpitations, no edema, no shortness of breath. Gastrointestinal: no incontinence, normal bowel movements reported Genitourinary: no incontinence Musculoskeletal: Back pain, leg pain, foot pain, AC joint pain shoulder joint pain Psychiatric: normal mood/ affect Neurological: [denies weakness in extremities], [denies balance issues] Objective:: Physical Exam General: Alert and oriented x3, no acute distress, pleasant and cooperative, [on room air] Lungs: Resps E/U, Symmetrical chest expansion, Eyes: PERRL Musculoskeletal: Flexion and extension of cervical and lumbar spine somewhat guarded secondary to pain, deep tendon reflexes normal, strength in upper and lower extremities [5/5], [abnormal gait noted] extreme tenderness over bilateral AC joints Neurological: speech clear, improvement spec equal, no gross sensory deficits Assessment:: Shoulder arthritis, arthritis, degenerative disc disease lumbar spine with lumbar radiculopathy and neuropathy, degenerative disc disease cervical spine with cervical radiculopathy at times Plan:: We will set the patient up for bilateral AC joint injections. He is going to continue his Lyrica 75 mg 1 p.o. twice daily. Patient states he is doing very well with this. I will follow-up with the patient after his injections. Dr. Belle has reviewed this note and agrees with this plan of care. This note was dictated using voice recognition software and may contain errors or omissions
== END ==
PROVIDERS: PCP Family Medicine; Visit Provider Clinical Nurse Specialist Family Health
DX: M51.16 Intervertebral disc disorders with radiculopathy, lumbar region (principal); M13.819 Other specified arthritis, unspecified shoulder; M50.30 Other cervical disc degeneration, unspecified cervical region
CPT/HCPCS: 99213

== ENCOUNTER → 2018-10-26 13:28 | Outpatient (CLI) | payer MEDICARE, BC, SELFPAY ==
[2018-10-28 06:13] LABS: PSA, Free 0.85 ng/mL; Prostate Specific Ag 2.5 ng/mL (0.0-4.0)
== END ==
PROVIDERS: Visit Provider Urology
DX: R97.20 Elevated prostate specific antigen [PSA] (principal); N40.1 Benign prostatic hyperplasia with lower urinary tract symptoms; R35.0 Frequency of micturition
CPT/HCPCS: 84153; 84154

== ENCOUNTER → 2018-11-22 15:00 | Outpatient (POV) | payer MEDICARE, BC, SELFPAY ==
[2018-11-22 15:42] VITALS: BP 159/78; PULSE 66; RESP 18; O2SAT 98; BMI 32.8
--- NOTE | 2018-11-23 08:40 | HMH.PAINSOAP ---
[facility] Pain Management SOAP Note Subjective:: Patient is a pleasant 78-year-old white male who presents today for follow-up after AC joint injections. Patient states that he is doing extremely well after this. Most of the patient's pain today is in his neck. Patient is currently on Lyrica 75 mg 1 p.o. twice daily and states that this is beneficial he is wondering if he can increase his medication. Patient denies side effects to his medication patient states he does have some trouble sleeping at night. He rates his pain today a 1 out of 10. ROS General: no recent weight change, no fever, no sleep disturbances Respiratory: no cough, no shortness of air, no recurring pulmonary infections Cardiovascular/Peripheral Vascular: No chest pain, No palpitations, no edema, no shortness of breath. Gastrointestinal: no incontinence, normal bowel movements reported Genitourinary: no incontinence Musculoskeletal: Neck pain, shoulder pain, arm pain Psychiatric: normal mood/ affect, [denies depression], [denies anxiety] Neurological: [denies weakness in extremities], [denies balance issues] Objective:: Physical Exam General: Alert and oriented x3, no acute distress, pleasant and cooperative, [on room air] Lungs: Resps E/U, Symmetrical chest expansion Eyes: PERRL Musculoskeletal: Flexion and extension of cervical spine somewhat guarded secondary to pain, deep tendon reflexes normal, strength in upper and lower extremities [5/5], slightly antalgic gait noted Neurological: speech clear, squad boss equal, no gross sensory deficits Assessment:: Degenerative disc disease cervical spine with cervical radiculopathy and bilateral shoulder pain with bilateral AC joint arthritis. 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 3 times daily. We will see if this is beneficial for the patient will follow-up in 2 months and reassess his symptoms at that time. Patient's been instructed to call the office if he has any issues prior to his next appointment. Dr. Belle has reviewed this note and agrees with this plan of care. This note was dictated using voice recognition software and may contain errors or omissions
== END ==
PROVIDERS: PCP Family Medicine; Visit Provider Clinical Nurse Specialist Family Health
DX: M50.10 Cervical disc disorder with radiculopathy, unspecified cervical region (principal); M51.16 Intervertebral disc disorders with radiculopathy, lumbar region; M19.012 Primary osteoarthritis, left shoulder; M19.011 Primary osteoarthritis, right shoulder
CPT/HCPCS: 99213

== ENCOUNTER → 2019-01-17 11:10 | Outpatient (POV) | payer MEDICARE, BC, SELFPAY ==
[2019-01-17 11:21] VITALS: BP 167/97; PULSE 114; RESP 18; O2SAT 98; BMI 32.2
--- NOTE | 2019-01-17 11:26 | HMH.PAINSOAP ---
[facility] Pain Management SOAP Note Subjective:: Patient is a pleasant 78-year-old white male who presents today for follow-up. Patient is doing well. Is currently on Lyrica 75 mg 3 times a day. He denies side effects to medication. He rates his pain a 0 out of 10. Aleksander reviewed and appropriate ROS General: no recent weight change, no fever, no sleep disturbances Respiratory: no cough, no shortness of air, no recurring pulmonary infections Cardiovascular/Peripheral Vascular: No chest pain, No palpitations, no edema, no shortness of breath. Gastrointestinal: no incontinence, normal bowel movements reported Genitourinary: no incontinence Musculoskeletal: Neck pain shoulder pain arm pain at times Psychiatric: normal mood/ affect Neurological: [denies weakness in extremities], [denies balance issues] Objective:: Physical Exam General: Alert and oriented x3, no acute distress, pleasant and cooperative, [on room air] Lungs: Resps E/U, Symmetrical chest expansion, Eyes: PERRL Musculoskeletal: Flexion and extension of cervical spine somewhat guarded secondary to pain, deep tendon reflexes normal, strength in upper and lower extremities [5/5], [abnormal gait noted] Neurological: speech clear, retail sales vitamin consultant equal, no gross sensory deficits Assessment:: Degenerative disc disease cervical spine with cervical radiculopathy bilateral shoulder pain, degenerative disc disease lumbar spine with lumbar radiculopathy and neuropathy Plan:: We will keep the patient on Lyrica 75 mg 1 p.o. 3 times daily. He is doing well. We will follow-up with him in 2 months to reassess his symptoms. He is been instructed to call the office if he has any issues prior to his next appointment. Dr. Belle has reviewed this note and agrees with this plan of care. This note was dictated using voice recognition software and may contain errors or omissions
--- NOTE | 2019-01-17 11:29 | P.CONS_ITS ---
[facility] Pain Management SOAP Note Subjective:: Patient is a pleasant 78-year-old white male who presents today for follow-up. Patient is doing well. Is currently on Lyrica 75 mg 3 times a day. He denies side effects to medication. He rates his pain a 0 out of 10. Aleksander reviewed and appropriate ROS General: no recent weight change, no fever, no sleep disturbances Respiratory: no cough, no shortness of air, no recurring pulmonary infections Cardiovascular/Peripheral Vascular: No chest pain, No palpitations, no edema, no shortness of breath. Gastrointestinal: no incontinence, normal bowel movements reported Genitourinary: no incontinence Musculoskeletal: Neck pain shoulder pain arm pain at times Psychiatric: normal mood/ affect Neurological: [denies weakness in extremities], [denies balance issues] Objective:: Physical Exam General: Alert and oriented x3, no acute distress, pleasant and cooperative, [on room air] Lungs: Resps E/U, Symmetrical chest expansion, Eyes: PERRL Musculoskeletal: Flexion and extension of cervical spine somewhat guarded secondary to pain, deep tendon reflexes normal, strength in upper and lower extremities [5/5], [abnormal gait noted] Neurological: speech clear, director of education equal, no gross sensory deficits Assessment:: Degenerative disc disease cervical spine with cervical radiculopathy bilateral shoulder pain, degenerative disc disease lumbar spine with lumbar radiculopathy and neuropathy Plan:: We will keep the patient on Lyrica 75 mg 1 p.o. 3 times daily. He is doing well. We will follow-up with him in 2 months to reassess his symptoms. He is been instructed to call the office if he has any issues prior to his next appointment. Dr. eBlle has reviewed this note and agrees with this plan of care. This note was dictated using voice recognition software and may contain errors or omissions
== END ==
PROVIDERS: PCP Family Medicine; Visit Provider Clinical Nurse Specialist Family Health
DX: M50.10 Cervical disc disorder with radiculopathy, unspecified cervical region (principal); M25.512 Pain in left shoulder; M25.511 Pain in right shoulder; M51.16 Intervertebral disc disorders with radiculopathy, lumbar region; G62.9 Polyneuropathy, unspecified
CPT/HCPCS: 99212

== ENCOUNTER → 2019-03-14 11:03 | Outpatient (POV) | payer MEDICARE, BC, SELFPAY ==
[2019-03-14 11:16] VITALS: BP 164/82; PULSE 61; RESP 18; O2SAT 98; BMI 33.1
--- NOTE | 2019-03-14 12:53 | HMH.PAINSOAP ---
[facility] Pain Management SOAP Note Subjective:: Patient is a pleasant 78-year-old white male who presents today for follow-up. Overall doing well he is currently on Lyrica 75 mg p.o. 3 times daily. Rates his pain a 2 out of 10. He is concerned in regards to his low back pain. It has worsened lately. Patient states that it has trouble walking and standing long periods of time. He is finding himself leaning forward to get relief. Patient is wondering if he is a mild procedure candidate. He does not have any recent lumbar imaging. ROS General: no recent weight change, no fever, no sleep disturbances Respiratory: no cough, no shortness of air, no recurring pulmonary infections Cardiovascular/Peripheral Vascular: No chest pain, No palpitations, no edema, no shortness of breath. Gastrointestinal: no incontinence, normal bowel movements reported Genitourinary: no incontinence Musculoskeletal: Back pain, leg pain Psychiatric: normal mood/ affect Neurological: [denies weakness in extremities], [denies balance issues] Objective:: Physical Exam General: Alert and oriented x3, no acute distress, pleasant and cooperative, [on room air] Lungs: Resps E/U, Symmetrical chest expansion, Eyes: PERRL Musculoskeletal: Flexion and extension of lumbar spine somewhat guarded secondary to pain, deep tendon reflexes normal, strength in upper and lower extremities [5/5], [abnormal gait noted] Neurological: speech clear, vocational education teacher equal, no gross sensory deficits Assessment:: Degenerative disc disease lumbar spine with lumbar radiculopathy along with spinal stenosis and neurogenic claudication, degenerative disc disease cervical spinal cervical radiculopathy Plan:: We will order an MRI for the patient to determine if he is a mild procedure candidate. Patient is to follow-up with us after this and reassess. Patient is instructed to call the office if he has any issues prior to his next appointment. Dr. Belle has reviewed this note and agrees with this plan of care. This note was dictated using voice recognition software and may contain errors or omissions
--- NOTE | 2019-03-14 12:56 | P.CONS_ITS ---
[facility] Pain Management SOAP Note Subjective:: Patient is a pleasant 78-year-old white male who presents today for follow-up. Overall doing well he is currently on Lyrica 75 mg p.o. 3 times daily. Rates his pain a 2 out of 10. He is concerned in regards to his low back pain. It has worsened lately. Patient states that it has trouble walking and standing long periods of time. He is finding himself leaning forward to get relief. Patient is wondering if he is a mild procedure candidate. He does not have any recent lumbar imaging. ROS General: no recent weight change, no fever, no sleep disturbances Respiratory: no cough, no shortness of air, no recurring pulmonary infections Cardiovascular/Peripheral Vascular: No chest pain, No palpitations, no edema, no shortness of breath. Gastrointestinal: no incontinence, normal bowel movements reported Genitourinary: no incontinence Musculoskeletal: Back pain, leg pain Psychiatric: normal mood/ affect Neurological: [denies weakness in extremities], [denies balance issues] Objective:: Physical Exam General: Alert and oriented x3, no acute distress, pleasant and cooperative, [on room air] Lungs: Resps E/U, Symmetrical chest expansion, Eyes: PERRL Musculoskeletal: Flexion and extension of lumbar spine somewhat guarded secondary to pain, deep tendon reflexes normal, strength in upper and lower extremities [5/5], [abnormal gait noted] Neurological: speech clear, risk control director equal, no gross sensory deficits Assessment:: Degenerative disc disease lumbar spine with lumbar radiculopathy along with spinal stenosis and neurogenic claudication, degenerative disc disease cervical spinal cervical radiculopathy Plan:: We will order an MRI for the patient to determine if he is a mild procedure candidate. Patient is to follow-up with us after this and reassess. Patient is instructed to call the office if he has any issues prior to his next appointment. Dr. Belle has reviewed this note and agrees with this plan of care. This note was dictated using voice recognition software and may contain errors or omissions
== END ==
PROVIDERS: PCP Family Medicine; Visit Provider Clinical Nurse Specialist Family Health
DX: M48.062 Spinal stenosis, lumbar region with neurogenic claudication (principal); M50.10 Cervical disc disorder with radiculopathy, unspecified cervical region
CPT/HCPCS: 99212

== ENCOUNTER → 2019-03-16 14:37 | Outpatient (CLI) | payer MEDICARE, BC, SELFPAY ==
--- NOTE | 2019-03-16 14:41 | MR_ITS ---
MR lumbar spine wo con HISTORY: ITS.REASON: BACK PAIN ORDERING PHYSICIAN: Sandi Truong APRN PATIENT AGE: 78 years Comparison: None TECHNIQUE: Standard multiplanar multiecho sequences are performed without contrast. 3-D MIP and myelographic images are also rendered and reviewed FINDINGS: Alignment appears normal. Vertebral body heights are normal. At all lumbar levels there is severe loss of disc space height. There is severe loss of disc space height also with mild posterior spurs without mass effect at T10-11 and T11-12. Visualized portions of the lower spinal cord and conus area appears normal. The conus terminates at the mid L2 level, which is within normal limits. The marrow signal is normal with a few levels of benign cavernous hemangiomas however there is subchondral low T1 and low T2 signal indicating degenerative reactive sclerosis at L3-4 and L4-5 levels. There are associated prominent anterior spurs as well at this levels. L1-2 shows mild bulge and mild facet hypertrophy with mild generalized thecal sac attenuation. L2-3 shows diffuse mild bulge/posterior spur with generalized mild thecal sac attenuation and mild facet hypertrophy. L3-4 also shows mild bulge and mild facet hypertrophy moderate on the left with mild to moderate generalized thecal sac attenuation. L4-5 shows diffuse mild bulge/posterior spur with severe facet hypertrophy with severe thecal sac attenuation. L5-S1 shows mild bulge and mild facet hypertrophy without thecal sac or descending S1 nerve root mass effect. Because of degenerative changes there is effacement of the epidural fat in the foraminal areas causing stenosis in this is severe on the right at L4-5, and mild to moderate on the right at L3-4 and L4-5. This is moderate on the left at L3-4, L4-5 and L5-S1. IMPRESSION: As discussed above multiple levels of chronic intervertebral osteochondrosis involving the visualized lower thoracic and the entire lumbar spine. There are associated multiple bulges and facet arthrosis as discussed above. Central canal acquired stenosis throughout the lumbar spine which is generally mild although this is moderate at L3-4 and severe at L4-5. Multiple areas of foraminal stenosis discussed above, and this is most severe on the right at L4-5.
== END ==
PROVIDERS: PCP Family Medicine; Visit Provider Clinical Nurse Specialist Family Health
DX: M54.5 Low back pain (principal)
CPT/HCPCS: 72148; 76376

== ENCOUNTER → 2019-03-22 10:31 | Outpatient (POV) | payer MEDICARE, BC, SELFPAY ==
[2019-03-22 10:44] VITALS: BP 158/82; PULSE 58; RESP 18; O2SAT 98; BMI 33.4
--- NOTE | 2019-03-22 13:05 | P.CONS_ITS ---
[facility] Pain Management SOAP Note Subjective:: Patient is a pleasant 78-year-old white male who presents today for follow-up after MRI. Patient complains of low back pain that worsens with standing. He does report relief when leaning forward. He rates his pain a 5 out of 10 today. He has questions about the mild procedure and would like to determine if he is a candidate. The patient has continued a home stretching program, PT, along with anti-inflammatories. the patient has also had injective therapies that have failed. Review of Systems General: No recent weight changes, no fever, no sleep disturbances Respiratory: No cough, no shortness of air, no recurring pulmonary infections Cardiovascular/peripheral vascular: No chest pain, no palpitations, no edema, no shortness of breath Gastrointestinal: No new onset incontinence, normal bowel movements reported Genitourinary: No new onset incontinence Musculoskeletal: Back pain Psychiatric: Normal mood/affect Neurological: [Denies weakness in extremities], [denies balance issues] Objective:: Physical exam General: Alert and oriented x3, no acute distress, pleasant and cooperative, [on room air] Lungs: Respirations even and unlabored, symmetrical chest expansion Eyes: PERRL Musculoskeletal: Flexion and extension of lumbar spine somewhat guarded secondary to pain, deep tendon reflexes normal, strength in upper and lower extremities [5/5], antalgic gait noted Neurological: Speech clear, land planner equal, no gross sensory deficit Assessment:: Degenerative disc disease lumbar spine with lumbar radiculopathy, spinal stenosis and neurogenic claudication, degenerative disc disease cervical spine with cervical radiculopathy symptoms Plan:: After reviewing the patient's imaging, I do think that he would benefit from a mild procedure at L4-L5. The patient is not any anticoagulation therapy. He is continuing NSAIDs and a home stretching program. We will schedule the patient for the procedure and see him back in the office to reassess his symptoms after. The patient has been instructed to call the office if he has any concerns prior to his next appointment. Dr. Belle has reviewed this note and agrees with this plan of care. This note was dictated using voice recognition software and make contain errors or omissions.
== END ==
PROVIDERS: PCP Family Medicine; Visit Provider Clinical Nurse Specialist Family Health
DX: M51.16 Intervertebral disc disorders with radiculopathy, lumbar region (principal); M48.062 Spinal stenosis, lumbar region with neurogenic claudication; M50.10 Cervical disc disorder with radiculopathy, unspecified cervical region
CPT/HCPCS: 99212

== ENCOUNTER → 2019-04-04 12:49 | Outpatient (POV) | payer MEDICARE, OTHER, SELFPAY ==
[2019-04-04 12:59] VITALS: BP 142/70; PULSE 63; RESP 18; O2SAT 98; BMI 33.3
--- NOTE | 2019-04-04 13:01 | HMH.PAINSOAP ---
[facility] Pain Management SOAP Note Subjective:: Patient is a pleasant 78-year-old white male who is following up after a mild procedure. We are treating the patient for low back pain with lumbar stenosis and neurogenic claudication. Patient says he is doing well today. He rates his pain a 3 out of 10. He says that he has 70% relief at this time. Patient says that he does understand that it is going to take some time for him to heal. He does have some tenderness at the insertion site with tingling and burning. Patient denies any fever or drainage from the incision site. Review of Systems General: No recent weight changes, no fever, no sleep disturbances Respiratory: No cough, no shortness of air, no recurring pulmonary infections Cardiovascular/peripheral vascular: No chest pain, no palpitations, no edema, no shortness of breath Gastrointestinal: No new onset incontinence, normal bowel movements reported Genitourinary: No new onset incontinence Musculoskeletal: Back pain Psychiatric: Normal mood/affect Neurological: [Denies weakness in extremities], [denies balance issues] Objective:: Physical exam General: Alert and oriented x3, no acute distress, pleasant and cooperative, [on room air] Lungs: Respirations even and unlabored, symmetrical chest expansion Eyes: PERRL Musculoskeletal: Flexion and extension of lumbar spine somewhat guarded secondary to pain, deep tendon reflexes normal, strength in upper and lower extremities [5/5], [abnormal gait noted] Neurological: Speech clear, automated teller manager equal, no gross sensory deficit Assessment:: 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 Incision looks good with no infection noted. We will follow-up with the patient at his next scheduled appointment and reassess his symptoms at that time he is been instructed to call the office if he has any concerns prior to his next appointment. Dr. Belle has reviewed this note and agrees with this plan of care. This note was dictated using voice recognition software and make contain errors or omissions.
--- NOTE | 2019-04-04 13:05 | P.CONS_ITS ---
[facility] Pain Management SOAP Note Subjective:: Patient is a pleasant 78-year-old white male who is following up after a mild procedure. We are treating the patient for low back pain with lumbar stenosis and neurogenic claudication. Patient says he is doing well today. He rates his pain a 3 out of 10. He says that he has 70% relief at this time. Patient says that he does understand that it is going to take some time for him to heal. He does have some tenderness at the insertion site with tingling and burning. Patient denies any fever or drainage from the incision site. Review of Systems General: No recent weight changes, no fever, no sleep disturbances Respiratory: No cough, no shortness of air, no recurring pulmonary infections Cardiovascular/peripheral vascular: No chest pain, no palpitations, no edema, no shortness of breath Gastrointestinal: No new onset incontinence, normal bowel movements reported Genitourinary: No new onset incontinence Musculoskeletal: Back pain Psychiatric: Normal mood/affect Neurological: [Denies weakness in extremities], [denies balance issues] Objective:: Physical exam General: Alert and oriented x3, no acute distress, pleasant and cooperative, [on room air] Lungs: Respirations even and unlabored, symmetrical chest expansion Eyes: PERRL Musculoskeletal: Flexion and extension of lumbar spine somewhat guarded secondary to pain, deep tendon reflexes normal, strength in upper and lower extremities [5/5], [abnormal gait noted] Neurological: Speech clear, advance agent equal, no gross sensory deficit Assessment:: 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 Incision looks good with no infection noted. We will follow-up with the patient at his next scheduled appointment and reassess his symptoms at that time he is been instructed to call the office if he has any concerns prior to his next appointment. Dr. Belle has reviewed this note and agrees with this plan of care. This note was dictated using voice recognition software and make contain errors or omissions.
== END ==
PROVIDERS: PCP Family Medicine; Visit Provider Clinical Nurse Specialist Family Health
DX: M48.062 Spinal stenosis, lumbar region with neurogenic claudication (principal)
CPT/HCPCS: 99212

== ENCOUNTER → 2019-04-11 10:46 | Outpatient (POV) | payer MEDICARE, BC, OTHER, SELFPAY ==
[2019-04-11 11:20] VITALS: BP 136/78; PULSE 74; RESP 18; O2SAT 98; BMI 33.3
--- NOTE | 2019-04-11 12:47 | HMH.PAINSOAP ---
[facility] Pain Management SOAP Note Subjective:: Patient is a pleasant 78-year-old white male who presents today for follow-up. Patient had a mild procedure and is doing well. We are treating him for low back pain with lumbar stenosis and neurogenic claudication. Patient says that he is not having any pain to his back today. He does rate his pain a 2 out of 10 but he says it is due to rain and arthritis. He says that he has had 90% relief. He also says that he is ambulating more with his taking daily walks. The patient says he is thankful that he had the procedure and is doing better than he has all years. Review of Systems General: No recent weight changes, no fever, no sleep disturbances Respiratory: No cough, no shortness of air, no recurring pulmonary infections Cardiovascular/peripheral vascular: No chest pain, no palpitations, no edema, no shortness of breath Gastrointestinal: No new onset incontinence, normal bowel movements reported Genitourinary: No new onset incontinence Musculoskeletal: Back pain Psychiatric: Normal mood/affect Neurological: [Denies weakness in extremities], [denies balance issues] Objective:: Physical exam General: Alert and oriented x3, no acute distress, pleasant and cooperative, [on room air] Lungs: Respirations even and unlabored, symmetrical chest expansion Eyes: PERRL Musculoskeletal: Flexion and extension of lumbar spine somewhat guarded secondary to pain, deep tendon reflexes normal, strength in upper and lower extremities [5/5], [abnormal gait noted] Neurological: Speech clear, tire recapper equal, no gross sensory deficit Assessment:: 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 Incision looks good with no infection noted. We will follow-up with the patient in 2 months to reassess his symptoms at that time. He is been instructed to call the office if he has any concerns prior to his next appointment. Dr. Belle has reviewed this note and agrees with this plan of care. This note was dictated using voice recognition software and make contain errors or omissions.
--- NOTE | 2019-04-11 12:50 | P.CONS_ITS ---
[facility] Pain Management SOAP Note Subjective:: Patient is a pleasant 78-year-old white male who presents today for follow-up. Patient had a mild procedure and is doing well. We are treating him for low back pain with lumbar stenosis and neurogenic claudication. Patient says that he is not having any pain to his back today. He does rate his pain a 2 out of 10 but he says it is due to rain and arthritis. He says that he has had 90% relief. He also says that he is ambulating more with his taking daily walks. The patient says he is thankful that he had the procedure and is doing better than he has all years. Review of Systems General: No recent weight changes, no fever, no sleep disturbances Respiratory: No cough, no shortness of air, no recurring pulmonary infections Cardiovascular/peripheral vascular: No chest pain, no palpitations, no edema, no shortness of breath Gastrointestinal: No new onset incontinence, normal bowel movements reported Genitourinary: No new onset incontinence Musculoskeletal: Back pain Psychiatric: Normal mood/affect Neurological: [Denies weakness in extremities], [denies balance issues] Objective:: Physical exam General: Alert and oriented x3, no acute distress, pleasant and cooperative, [on room air] Lungs: Respirations even and unlabored, symmetrical chest expansion Eyes: PERRL Musculoskeletal: Flexion and extension of lumbar spine somewhat guarded secondary to pain, deep tendon reflexes normal, strength in upper and lower extremities [5/5], [abnormal gait noted] Neurological: Speech clear, elevator installer equal, no gross sensory deficit Assessment:: 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 Incision looks good with no infection noted. We will follow-up with the patient in 2 months to reassess his symptoms at that time. He is been instructed to call the office if he has any concerns prior to his next appointment. Dr. Belle has reviewed this note and agrees with this plan of care. This note was dictated using voice recognition software and make contain errors or omissions.
== END ==
PROVIDERS: PCP Family Medicine; Visit Provider Clinical Nurse Specialist Family Health
DX: M48.062 Spinal stenosis, lumbar region with neurogenic claudication (principal); M51.36 Other intervertebral disc degeneration, lumbar region; M96.1 Postlaminectomy syndrome, not elsewhere classified; M48.00 Spinal stenosis, site unspecified
CPT/HCPCS: 99212

== ENCOUNTER → 2019-06-13 10:37 | Outpatient (POV) | payer MEDICARE, BC, SELFPAY ==
[2019-06-13 10:52] VITALS: BP 167/82; PULSE 66; RESP 18; O2SAT 98; BMI 33.7
--- NOTE | 2019-06-13 12:13 | HMH.PAINSOAP ---
[facility] Pain Management SOAP Note Subjective:: Patient is a pleasant 79-year-old white male who presents today for follow-up. Patient is doing well however he would like to make some medication changes. Patient is currently on Lyrica he feels that the gabapentin may be more beneficial. We will switch him back to gabapentin 300 mg 1 p.o. 3 times daily. Also patient does have a small area of redness noted on his low back. It is not open and is not draining. We will put him on some prophylactic Cipro to see if this will help heal that area. He denies side effects his medication. [facility] #[id number] reviewed and appropriate. ROS General: no recent weight change, no fever, no sleep disturbances Respiratory: no cough, no shortness of air, no recurring pulmonary infections Cardiovascular/Peripheral Vascular: No chest pain, No palpitations, no edema, no shortness of breath. Gastrointestinal: no incontinence, normal bowel movements reported Genitourinary: no incontinence Musculoskeletal: Neck pain, back pain Psychiatric: normal mood/ affect, [denies depression], [denies anxiety] Neurological: [denies weakness in extremities], [denies balance issues] Objective:: Physical Exam General: Alert and oriented x3, no acute distress, pleasant and cooperative, appreciated Lungs: Resps E/U, Symmetrical chest expansion, Eyes: PERRL Musculoskeletal: Flexion and extension of lumbar and cervical spine somewhat guarded secondary to pain, deep tendon reflexes normal, strength in upper and lower extremities [5/5], [abnormal gait noted] Neurological: speech clear, electronic device repairer equal, no gross sensory deficits Assessment:: Degenerative disc disease lumbar spine with lumbar radiculopathy, spinal stenosis, 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 3 times daily. We will give him Cipro 500 mg 1 p.o. twice daily for 7 days. I will follow-up with him in 2 weeks reassess his symptoms at that time he is been instructed to call the office if he has any issues prior to his next appointment Dr. Belle has reviewed this note and agrees with this plan of care. This note was dictated using voice recognition software and may contain errors or omissions [facility] History I have reviewed the patient's past medical history: Yes Medical History: Reports:: Anxiety, Atherosclerotic Heart Disease, Cancer, Cardiomyopathy, Congestive Heart Failure, Coronary Artery Disease, Depression, Gastroesophageal Reflux Disease(GERD), Hyperlipidemia, Hypertension, MRSA, Urinary Tract Infection Denies:: Diabetes Mellitus Type 1, Diabetes Mellitus Type 2, Internal Pacemaker, Lung Disease, Seizures *Have you ever received a pneumonia vaccine?: Yes *Have you received a flu vaccine this season?: Yes Other Medical History: Reports: Arthritis, Blood Transfusion Reaction, Hypothyroidism, Sinus Problems, Other Laterality Cases: Other Surgeries: Yes: CABG, Cardiac Catheterization, Cardiac Surgery, Cholecystectomy, Colonoscopy, Coronary Stent, EGD, Open Heart Surgery, Sinus Surgery, Other (SI Joint, Esophagus, Prostate sx, Rhinoplasty, ). No: Pacemaker Amputation: No Fractures: No - *Social History Smoking Status: Former smoker #Yrs smoked (if former smoker): 50 Alcohol Intake: never Alcohol Intake Frequency:: other Substance Use Type: denies use *Occupational Status:: other Housing: house Household Members: spouse *Travel in the last 8 weeks: None - Psychiatric History Pschychiatric History:: Reports:: Anxiety, Depression Family Hx:: Cancer, Hypertension, Coronary Artery Disease, Thyroid Disorder
--- NOTE | 2019-06-13 12:16 | P.CONS_ITS ---
[facility] Pain Management SOAP Note Subjective:: Patient is a pleasant 79-year-old white male who presents today for follow-up. Patient is doing well however he would like to make some medication changes. Patient is currently on Lyrica he feels that the gabapentin may be more beneficial. We will switch him back to gabapentin 300 mg 1 p.o. 3 times daily. Also patient does have a small area of redness noted on his low back. It is not open and is not draining. We will put him on some prophylactic Cipro to see if this will help heal that area. He denies side effects his medication. [facility] #[id number] reviewed and appropriate. ROS General: no recent weight change, no fever, no sleep disturbances Respiratory: no cough, no shortness of air, no recurring pulmonary infections Cardiovascular/Peripheral Vascular: No chest pain, No palpitations, no edema, no shortness of breath. Gastrointestinal: no incontinence, normal bowel movements reported Genitourinary: no incontinence Musculoskeletal: Neck pain, back pain Psychiatric: normal mood/ affect, [denies depression], [denies anxiety] Neurological: [denies weakness in extremities], [denies balance issues] Objective:: Physical Exam General: Alert and oriented x3, no acute distress, pleasant and cooperative, appreciated Lungs: Resps E/U, Symmetrical chest expansion, Eyes: PERRL Musculoskeletal: Flexion and extension of lumbar and cervical spine somewhat guarded secondary to pain, deep tendon reflexes normal, strength in upper and lower extremities [5/5], [abnormal gait noted] Neurological: speech clear, pot pusher equal, no gross sensory deficits Assessment:: Degenerative disc disease lumbar spine with lumbar radiculopathy, spinal stenosis, 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 3 times daily. We will give him Cipro 500 mg 1 p.o. twice daily for 7 days. I will follow-up with him in 2 weeks reassess his symptoms at that time he is been instructed to call the office if he has any issues prior to his next appointment Dr. Belle has reviewed this note and agrees with this plan of care. This note was dictated using voice recognition software and may contain errors or omissions [facility] History I have reviewed the patient's past medical history: Yes Medical History: Reports:: Anxiety, Atherosclerotic Heart Disease, Cancer, Cardiomyopathy, Congestive Heart Failure, Coronary Artery Disease, Depression, Gastroesophageal Reflux Disease(GERD), Hyperlipidemia, Hypertension, MRSA, Urinary Tract Infection Denies:: Diabetes Mellitus Type 1, Diabetes Mellitus Type 2, Internal Pacemaker, Lung Disease, Seizures *Have you ever received a pneumonia vaccine?: Yes *Have you received a flu vaccine this season?: Yes Other Medical History: Reports: Arthritis, Blood Transfusion Reaction, Hypothyroidism, Sinus Problems, Other Laterality Cases: Other Surgeries: Yes: CABG, Cardiac Catheterization, Cardiac Surgery, Cholecystectomy, Colonoscopy, Coronary Stent, EGD, Open Heart Surgery, Sinus Surgery, Other (SI Joint, Esophagus, Prostate sx, Rhinoplasty, ). No: Pacemaker Amputation: No Fractures: No - *Social History Smoking Status: Former smoker #Yrs smoked (if former smoker): 50 Alcohol Intake: never Alcohol Intake Frequency:: other Substance Use Type: denies use *Occupational Status:: other Housing: house Household Members: spouse *Travel in the last 8 weeks: None - Psychiatric History Pschychiatric History:: Reports:: Anxiety,
== END ==
PROVIDERS: PCP Family Medicine; Visit Provider Clinical Nurse Specialist Family Health
DX: M51.16 Intervertebral disc disorders with radiculopathy, lumbar region (principal); M50.10 Cervical disc disorder with radiculopathy, unspecified cervical region; M96.1 Postlaminectomy syndrome, not elsewhere classified; M48.00 Spinal stenosis, site unspecified; G62.9 Polyneuropathy, unspecified
CPT/HCPCS: 99212

== ENCOUNTER → 2019-07-04 09:29 | Outpatient (POV) | payer MEDICARE, BC, SELFPAY ==
[2019-07-04 09:50] VITALS: BP 161/93; PULSE 65; RESP 18; O2SAT 98; BMI 33.9
--- NOTE | 2019-07-04 10:06 | HMH.PAINSOAP ---
[facility] Pain Management SOAP Note Subjective:: Patient is a pleasant 79-year-old white male who presents today for follow-up. Patient had a mild procedure in which she had some irritation and redness around the site. He was put on Cipro he completed this and looks much better however I do believe that due to the irritation in the area and subsequent itching a wound care consultation would not be a bad idea. We will send him there. Patient was seen by Dr. Whitehead who started him on additional gabapentin. Patient states it was very beneficial. We will increase his gabapentin to 400 mg 1 p.o. 3 times daily. He rates his pain today 3 out of 10 ROS General: no recent weight change, no fever, no sleep disturbances Respiratory: no cough, no shortness of air, no recurring pulmonary infections Cardiovascular/Peripheral Vascular: No chest pain, No palpitations, no edema, no shortness of breath. Gastrointestinal: no incontinence, normal bowel movements reported Genitourinary: no incontinence Musculoskeletal: Back pain, leg pain, neck pain at times Psychiatric: normal mood/ affect, Neurological: [denies weakness in extremities], [denies balance issues] Objective:: Physical Exam General: Alert and oriented x3, no acute distress, pleasant and cooperative, [on room air] Lungs: Resps E/U, Symmetrical chest expansion, Eyes: PERRL Musculoskeletal: Flexion and extension of lumbar spine somewhat guarded secondary to pain, deep tendon reflexes normal, strength in upper and lower extremities [5/5], [abnormal gait noted] Neurological: speech clear, 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 3 times daily. We will also send him to wound care for an evaluation. Dr. Belle has reviewed this note and agrees with this plan of care. This note was dictated using voice recognition software and may contain errors or omissions [facility] History I have reviewed the patient's past medical history: Yes Medical History: Reports:: Anxiety, Atherosclerotic Heart Disease, Cancer, Cardiomyopathy, Congestive Heart Failure, Coronary Artery Disease, Depression, Gastroesophageal Reflux Disease(GERD), Hyperlipidemia, Hypertension, MRSA, Urinary Tract Infection Denies:: Diabetes Mellitus Type 1, Diabetes Mellitus Type 2, Internal Pacemaker, Lung Disease, Seizures *Have you ever received a pneumonia vaccine?: Yes *Have you received a flu vaccine this season?: No Other Medical History: Reports: Arthritis, Blood Transfusion Reaction, Hypothyroidism, Sinus Problems, Other Laterality Cases: Bilateral: Tonsillectomy, Total Hip Replacement Other Surgeries: Yes: CABG, Cardiac Catheterization, Cardiac Surgery, Cholecystectomy, Colonoscopy, Coronary Stent, EGD, Open Heart Surgery, Sinus Surgery, Other (SI Joint, Esophagus, Prostate sx, Rhinoplasty, ). No: Pacemaker Amputation: No Fractures: No - *Social History Smoking Status: Former smoker #Yrs smoked (if former smoker): 50 Alcohol Intake: never Alcohol Intake Frequency:: other Substance Use Type: denies use *Occupational Status:: other Housing: house Household Members: spouse *Travel in the last 8 weeks: None - Psychiatric History Pschychiatric History:: Reports:: Anxiety, Depression Family Hx:: Cancer, Hypertension, Coronary Artery Disease, Thyroid Disorder
--- NOTE | 2019-07-04 10:09 | P.CONS_ITS ---
[facility] Pain Management SOAP Note Subjective:: Patient is a pleasant 79-year-old white male who presents today for follow-up. Patient had a mild procedure in which she had some irritation and redness around the site. He was put on Cipro he completed this and looks much better however I do believe that due to the irritation in the area and subsequent itching a wound care consultation would not be a bad idea. We will send him there. Patient was seen by Dr. Whitehead who started him on additional gabapentin. Patient states it was very beneficial. We will increase his gabapentin to 400 mg 1 p.o. 3 times daily. He rates his pain today 3 out of 10 ROS General: no recent weight change, no fever, no sleep disturbances Respiratory: no cough, no shortness of air, no recurring pulmonary infections Cardiovascular/Peripheral Vascular: No chest pain, No palpitations, no edema, no shortness of breath. Gastrointestinal: no incontinence, normal bowel movements reported Genitourinary: no incontinence Musculoskeletal: Back pain, leg pain, neck pain at times Psychiatric: normal mood/ affect, Neurological: [denies weakness in extremities], [denies balance issues] Objective:: Physical Exam General: Alert and oriented x3, no acute distress, pleasant and cooperative, [on room air] Lungs: Resps E/U, Symmetrical chest expansion, Eyes: PERRL Musculoskeletal: Flexion and extension of lumbar spine somewhat guarded secondary to pain, deep tendon reflexes normal, strength in upper and lower extremities [5/5], [abnormal gait noted] Neurological: speech clear, medicare coordinator equal, no gross sensory deficits Assessment:: Generative disc disease lumbar spine with lumbar radiculopathy, spinal stenosis, degenerative disc disease cervical spinal cervical radiculopathy, post laminectomy syndrome, neuropathy Plan:: We will start the patient on gabapentin 400 mg 1 p.o. 3 times daily. We will also send him to wound care for an evaluation. Dr. Belle has reviewed this note and agrees with this plan of care. This note was dictated using voice recognition software and may contain errors or omissions [facility] History I have reviewed the patient's past medical history: Yes Medical History: Reports:: Anxiety, Atherosclerotic Heart Disease, Cancer, Cardiomyopathy, Congestive Heart Failure, Coronary Artery Disease, Depression, Gastroesophageal Reflux Disease(GERD), Hyperlipidemia, Hypertension, MRSA, Urinary Tract Infection Denies:: Diabetes Mellitus Type 1, Diabetes Mellitus Type 2, Internal Pacemaker, Lung Disease, Seizures *Have you ever received a pneumonia vaccine?: Yes *Have you received a flu vaccine this season?: No Other Medical History: Reports: Arthritis, Blood Transfusion Reaction, Hypothyroidism, Sinus Problems, Other Laterality Cases: Bilateral: Tonsillectomy, Total Hip Replacement Other Surgeries: Yes: CABG, Cardiac Catheterization, Cardiac Surgery, C holecystectomy, Colonoscopy, Coronary Stent, EGD, Open Heart Surgery, Sinus Surgery, Other (SI Joint, Esophagus, Prostate sx, Rhinoplasty, ). No: Pacemaker Amputation: No Fractures: No - *Social History Smoking Status: Former smoker #Yrs smoked (if former smoker): 50 Alcohol Intake: never Alcohol Intake Frequency:: other Substance Use Type: denies use *Occupational Status:: other Housing: house Household Members: spouse *Travel in the last 8 weeks: None - Psychiatric History Pschychiatric History:: Reports:: Anxiety, Depression Family Hx:: Cancer, Hypertension, Coronary Artery Disease, Thyroid Disorder
== END ==
PROVIDERS: PCP Family Medicine; Visit Provider Clinical Nurse Specialist Family Health
DX: M51.16 Intervertebral disc disorders with radiculopathy, lumbar region (principal); M50.10 Cervical disc disorder with radiculopathy, unspecified cervical region; M48.00 Spinal stenosis, site unspecified; M96.1 Postlaminectomy syndrome, not elsewhere classified; G62.9 Polyneuropathy, unspecified
CPT/HCPCS: 99212

== ENCOUNTER 2019-07-13 14:00 | Outpatient (RCR) | payer MEDICARE, OTHER, SELFPAY ==
--- NOTE | 2019-07-06 10:00 | HMH.PTOPWND ---
Rehab Outpt Wound Evaluation Rehab OP Wound Evaluation Start: 07/06/19 09:44 Freq: Status: Active Protocol: Document 07/06/19 09:45 PWCARROLL (Rec: 07/06/19 09:56 PWCARROLL [id number]) Electronically Signed By Khadar Gomez, PT 07/06/19 09:45 Subjective/History History History This is the initial OP PT wound clinc evaluation for Manuel Sarmiento. Pt is a 79 y/ o male referred to wound clinic for non-healing site in lumbar area. Pt reports he had a laminectomy performed ~ 4 months ago. Pt reports since sx this spot has been burning and itching . Pt rpeorts originally there were 3 spots but 2 cleared up. Pt reports he was on 1 rd of ABX for possible infxn, but finished ~ 3 weeks ago. Pt's reports she squeezed the spot and got ~ 1/4 tsp of pus out . Subjective Subjective PT c/o burning and itching in spot Wound Eval Wound Right Lower Back Wound Type Puncture Is This a Chronic Wound Yes Wound Length (cm) 1.0 Wound Width (cm) 1.0 Wound Bed Appearance Altheimer,Peeling Skin Wound Margins Description Well Defined Drainage Description None Drainage Amount None Drainage Odor No Odor Dressing Status Open to Air Primary Dressing Absorbant Pad Comment polymem dot Dressing Change Patient Tolerance Tolerated Well Wound Problems/Impairments Impairments Problems/Impairmments Wound Care Needs,Subjective C/ O Pain Prognosis Rehab Potential Fair Clinical Impression Consistent with Diagnosis Yes Short Term Goals Number of Weeks 2 Decrease Wound Area Yes: 25% Fireman Helper Goals Number of Weeks 4 Decrease Wound Area Yes: 75% Patient to be Ind w/ Home Wound Care/ Yes Dressing Changes Outpatient Therapy Plan of Care Treatment Plan May Include Manual Therapy Techniques Yes Wound Care Yes Eval/Re-Eval Yes Frequency Times per week 2 Duration Number of Weeks 4 Addendums This patient is a candidate for social No or vocational re
== END 2019-07-13 14:05 | disposition home or self-care (01) ==
LOC: PT 14:00
PROVIDERS: PCP Family Medicine; Visit Provider Clinical Nurse Specialist Family Health
DX: L03.312 Cellulitis of back [any part except buttock and flank] (principal); L76.82 Other postprocedural complications of skin and subcutaneous tissue
CPT/HCPCS: 97161; 97597

== ENCOUNTER → 2019-07-26 11:38 | Outpatient (POV) | payer MEDICARE, OTHER, SELFPAY ==
[2019-07-26 12:05] VITALS: BP 160/88; PULSE 67; RESP 18; O2SAT 98; BMI 34.2
--- NOTE | 2019-07-26 15:41 | HMH.PAINSOAP ---
[facility] Pain Management SOAP Note Subjective:: Patient is a 79-year-old white male who presents today for follow-up. Overall patient is doing well other than neck pain. Patient does have an MRI showing abnormal changes in the cervical spine including spinal stenosis and degeneration. Patient has had a C5-C6 epidural back in 2018 and did well with that until recently. His pain is returned he is also having left arm radiculopathy. Patient's been continuing gabapentin 400 mg 1 p.o. 3 times daily states it is beneficial rates the pain 8 out of 10. Patient was seen by wound care and overall is looking good and the puncture site around where his mild was patient still complains of itching and burning in the area however it is alleviated wit calamine lotion. There is no redness there is no rash and there is no open areas around the puncture site ROS General: no recent weight change, no fever, no sleep disturbances Respiratory: no cough, no shortness of air, no recurring pulmonary infections Cardiovascular/Peripheral Vascular: No chest pain, No palpitations, no edema, no shortness of breath. Gastrointestinal: no new onset incontinence, normal bowel movements reported Genitourinary: no new onset incontinence Musculoskeletal: Neck pain, arm pain Psychiatric: normal mood/ affect Neurological: [denies new onset weakness in extremities], [denies new onset balance issues] Objective:: Physical Exam General: Alert and oriented x3, no acute distress, pleasant and cooperative, [on room air] Lungs: Resps E/U, Symmetrical chest expansion, Eyes: PERRL Musculoskeletal: Flexion and extension of cervical spine somewhat guarded secondary to pain, deep tendon reflexes normal, strength in upper and lower extremities [5/5], antalgic gait noted Neurological: speech clear, 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 Patient is not on any anticoagulation therapy is continuing a home stretching program. Dr. Belle has reviewed this note and agrees with this plan of care. This note was dictated using voice recognition software and may contain errors or omissions [facility] History I have reviewed the patient's past medical history: Yes Medical History: Reports:: Anxiety, Atherosclerotic Heart Disease, Cancer, Cardiomyopathy, Congestive Heart Failure, Coronary Artery Disease, Depression, Gastroesophageal Reflux Disease(GERD), Hyperlipidemia, Hypertension, MRSA, Urinary Tract Infection Denies:: Diabetes Mellitus Type 1, Diabetes Mellitus Type 2, Internal Pacemaker, Lung Disease, Seizures *Have you ever received a pneumonia vaccine?: Yes *Have you received a flu vaccine this season?: Yes Other Medical History: Reports: Arthritis, Blood Transfusion Reaction, Hypothyroidism, Sinus Problems, Other Laterality Cases: Bilateral: Tonsillectomy, Total Hip Replacement Other Surgeries: Yes: CABG, Cardiac Catheterization, Cardiac Surgery, Cholecystectomy, Colonoscopy, Coronary Stent, EGD, Open Heart Surgery, Sinus Surgery, Other (SI Joint, Esophagus, Prostate sx, Rhinoplasty, ). No: Pacemaker Amputation: No Fractures: No - *Social History Smoking Status: Former smoker #Yrs smoked (if former smoker): 50 Alcohol Intake: never Alcohol Intake Frequency:: other Substance Use Type: denies use *Occupational Status:: other Housing: house Household Members: spouse *Travel in the last 8 weeks: None - Psychiatric History Pschychiatric History:: Reports:: Anxiety, Depression Family Hx:: Cancer, Hypertension, Coronary Artery Disease, Thyroid Disorder
== END ==
PROVIDERS: PCP Family Medicine; Visit Provider Clinical Nurse Specialist Family Health
DX: M50.30 Other cervical disc degeneration, unspecified cervical region (principal); M51.16 Intervertebral disc disorders with radiculopathy, lumbar region; G62.9 Polyneuropathy, unspecified
CPT/HCPCS: 99212

== ENCOUNTER → 2019-09-06 11:26 | Outpatient (POV) | payer MEDICARE, OTHER, SELFPAY ==
[2019-09-06 11:52] VITALS: BP 161/89; PULSE 74; RESP 18; O2SAT 99; BMI 33.4
--- NOTE | 2019-09-06 12:20 | HMH.PAINSOAP ---
[facility] Pain Management SOAP Note Subjective:: Patient is a pleasant 79-year-old white male who presents today for follow-up after cervical epidural steroid injection at C5-C6. Patient says that he got approximately 70 to 80% relief following his injection. He states that the pain was relieved for approximately 2 weeks, however, his pain has returned into his neck area along with his left shoulder. Patient says that he has chronic neck and shoulder pain along with low back pain. He says this is been ongoing for greater than 5 years. Pain has progressively gotten worse. The patient does take anti-inflammatories. He does perform a home stretching program. He has undergone multiple injection therapies and does get adequate relief, however, only for 2 to 4 weeks at a time. Patient would like to discuss possible implantable devices. He is interested in a possible spinal cord stimulator or intrathecal pain pump. He rates his pain a 2 out of 10 at this time. Review of Systems General: No recent weight changes, no fever, no sleep disturbances Respiratory: No cough, no shortness of air, no recurring pulmonary infections Cardiovascular/peripheral vascular: No chest pain, no palpitations, no edema, no shortness of breath Gastrointestinal: No new onset incontinence, normal bowel movements reported Genitourinary: No new onset incontinence Musculoskeletal: Neck pain, low back pain Psychiatric: Normal mood/affect Neurological: [Denies weakness in extremities], [denies balance issues] Objective:: Physical exam General: Alert and oriented x3, no acute distress, pleasant and cooperative, [on room air] Lungs: Respirations even and unlabored, symmetrical chest expansion Eyes: PERRL Musculoskeletal: Flexion and extension of cervical and lumbar spine somewhat guarded secondary to pain, deep tendon reflexes normal, strength in upper and lower extremities [5/5], [abnormal gait noted] Neurological: Speech clear, 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 He is also tried home stretching program. He patient is gotten little to no relief. I think the patient would benefit from an implantable device. We will schedule him for psychological evaluation for possible spinal cord stimulator or an intrathecal pain pump. We will see the patient back in the clinic following his psychological evaluation to discuss the plan of care. Patient and I did go over both devices and he was given educational information to review. Patient will return to the office after psychological evaluation to discuss any questions he may have. He will continue with anti-inflammatories and a home stretching program. Dr. Belle has reviewed this note and agrees with this plan of care. This note was dictated using voice recognition software and make contain errors or omissions. [facility] History I have reviewed the patient's past medical history: Yes Medical History: Reports:: Anxiety, Atherosclerotic Heart Disease, Cancer, Cardiomyopathy, Congestive Heart Failure, Coronary Artery Disease, Depression, Gastroesophageal Reflux Disease(GERD), Hyperlipidemia, Hypertension, MRSA, Urinary Tract Infection Denies:: Diabetes Mellitus Type 1, Diabetes Mellitus Type 2, Internal Pacemaker, Lung Disease, Seizures *Have you ever received a pneumonia vaccine?: Yes *Have you received a flu vaccine this season?: Yes Other Medical History: Reports: Arthritis, Blood Transfusion Reaction, Hypothyroidism, Sinus Problems, Other Laterality Cases: Bilateral: Tonsillectomy, Total Hip Replacement Other Surgeries: Yes: CABG, Cardiac Catheterization, Cardiac Surgery, Cholecystectomy, Colonoscopy, Coronary Stent, EGD, Open H
== END ==
PROVIDERS: PCP Family Medicine; Visit Provider Clinical Nurse Specialist Family Health
DX: M50.10 Cervical disc disorder with radiculopathy, unspecified cervical region (principal); M51.16 Intervertebral disc disorders with radiculopathy, lumbar region
CPT/HCPCS: 99212

== ENCOUNTER → 2020-02-08 12:48 | Outpatient (CLI) | payer MEDICARE, OTHER, SELFPAY ==
--- NOTE | 2020-02-08 12:50 | CA_ITS ---
APPROVED REPORT EXAM: Comprehensive 2D, Doppler, and color-flow Echocardiogram Senior Javascript Developer: Consuelo Self RVT Ht: 5 ft 8 in Wt: 225lbs BSA: 2.15 BP: 129/69 mmHg Indications: DD,CABG X 5,HTN,HLD,KENNY,FATIGUE VERY TDS-LIMITED WINDOWS OVERLAYING LUNG 2D Dimensions LVOT 2.62 cm (M/F) 1.5-2.5 M-Mode Dimensions RVDd 3.23 cm (0.9-2.6) LVDd 5.06 cm (3.5-5.7) LVDs 3.45 cm (3.5-5.7) IVSd 0.95 cm (0.6-1.1) PWd 1.00 cm (0.6-1.1) EF (Teich) 59.60% FS 31.80% EDV (Teich) 121.60 mL ESV (Teich) 49.10 mL LV Diastology E/A Ratio 0.60 Mitral Valve MV A Velocity 64.00 (40-130 cm/s) Left Ventricle Left atrium is mildly enlarged, left ventricle is normal size, mild concentric left ventricular hypertrophy, visually estimated ejection fraction 55% with no regional wall motion abnormality, grade 1 diastolic dysfunction seen without tissue Doppler evidence of raise left atrial pressure. Right Ventricle Right atrium and right ventricular normal size and contractility. Aortic Valve Aortic valve is minimally thickened and fibrosed leaflet chordae display good mobility, there is no aortic stenosis, there is mild aortic insufficiency. Mitral Valve Mitral valve leaflets are minimally thickened, there is no mitral stenosis, there is mild mitral regurgitation. Tricuspid Valve Tricuspid valve is grossly normal, there is mild tricuspid regurgitation, tricuspid regurgitation jet velocity is inadequate for calculation of the right ventricular systolic pressure. Pulmonic Valve Pulmonic valve is poorly visualized. Great Vessels Aortic root is normal size. Pericardium No significant pericardial effusion noted. Conclusion 1. Normal left ventricular size, mild concentric left ventricular hypertrophy, visually estimated ejection fraction 55% with no regional wall motion abnormality, grade 1 diastolic dysfunction seen without tissue Doppler evidence of raise left atrial pressure. 2. Mild aortic, mild mitral and tricuspid regurgitation. 3. No significant pericardial effusion noted. Electronically signed by : To Ramirez, 02/09/2020 15:10:37
== END ==
PROVIDERS: PCP Family Medicine; Visit Provider Urology
DX: I25.10 Atherosclerotic heart disease of native coronary artery without angina pectoris (principal); I50.30 Unspecified diastolic (congestive) heart failure
CPT/HCPCS: 93306

== ENCOUNTER → 2020-02-16 11:07 | Outpatient (CLI) | payer MEDICARE, OTHER, SELFPAY ==
[2020-02-16 14:24] LABS: Alanine Aminotransferase 14 U/L (12-78); Aspartate Amino Transferase 25 U/L (17-59); Bilirubin,Unconjugated 0.4 mg/dL (0.0-1.1)
[2020-02-16 14:25] LABS: Albumin Level 4.2 g/dl (3.5-5.0); Alkaline Phosphatase 88 U/L (38-126); Bilirubin,Direct 0.4 mg/dl (0.0-0.4); Bilirubin,Indirect 0.3 mg/dL (0.0-0.9); Bilirubin,Total 0.7 mg/dl (0.2-1.3); Chol/HDL Ratio 2.9 (1-3.5); Cholesterol 129 mg/dl (140-200); HDL Cholesterol 44 mg/dl (40-60); Total Protein,Serum 6.5 g/dl (6.3-8.2); Triglycerides 124 mg/dl (30-150); VLDL Cholesterol 25 mg/dL (0-40)
[2020-02-16 14:36] LABS: Direct LDL Cholesterol 78.12 mg/dL (100-129)
== END ==
PROVIDERS: Visit Provider Internal Medicine Cardiovascular Disease
DX: E78.5 Hyperlipidemia, unspecified (principal); I10 Essential (primary) hypertension; I25.10 Atherosclerotic heart disease of native coronary artery without angina pectoris
CPT/HCPCS: 36415; 80061; 80076

== ENCOUNTER → 2020-02-21 11:56 | Outpatient (CLI) | payer MEDICARE, OTHER, SELFPAY | PROVIDERS: Visit Provider Urology | DX: Z12.5 Encounter for screening for malignant neoplasm of prostate (principal) | CPT/HCPCS: 36415; G0103 ==

== ENCOUNTER → 2020-03-07 11:08 | Outpatient (CLI) | payer MEDICARE, BC, SELFPAY ==
[2020-03-07 12:34] LABS: Coronavirus 19 IgG Antibody Negative (Negative); Coronavirus 19 IgM Antibody Negative (Negative)
== END ==
PROVIDERS: Visit Provider Urology
DX: Z01.818 Encounter for other preprocedural examination (principal); N40.0 Benign prostatic hyperplasia without lower urinary tract symptoms
CPT/HCPCS: 36415; 86328

== ENCOUNTER 2020-03-08 13:35 | Day surgery (SDC) | payer MEDICARE, BC, SELFPAY ==
[2020-03-06 11:40] VITALS: BMI 33.7
[2020-03-08 13:51] VITALS: BP 139/76; PULSE 69; RESP 18; TEMP 36.4; O2SAT 97
[2020-03-08 15:05] VITALS: BP 137/87; PULSE 80; RESP 16; TEMP 36.7; O2SAT 98
--- NOTE | 2020-03-08 16:46 | HMH.OPNOTE ---
Date of procedure: 03/08/20 Pre-op Diagnosis:: Lower urinary tract symptoms Post-op Diagnosis:: Lower urinary tract symptoms secondary to BPH Procedure performed:: Flexible cystoscopy Surgeon:: Tommy Jon MD Anesthesia: local Estimated blood loss (mL): 0 Clinical Note:: 79-year-old white male with urinary slowing and incomplete bladder emptying presents for cystoscopic evaluation. He has had a previous laser TURP. 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 On the stretcher he was prepped and draped in the standard surgical fashion and 2% lidocaine placed into the urethra and clamped for 5 minutes. After 5 minutes the flexible cystoscope introduced into the urethral meatus. Scope passed to the prostatic urethra without difficulty and there was noted to be coapting bilobar hyperplasia. Prostate was not very long and there was evidence of a previous TUR primarily more towards the bladder neck. The bladder was entered and examined in a systematic fashion. No mucosal maladies were noted. There was some mild diffuse trabeculation. Ureteral orifices were well away from the bladder neck and there was a small median lobe present. The scope removed and patient tolerated the procedure well. We discussed the findings today and he was reassured there is no evidence of any suspicious abnormalities and we discussed UroLift procedure for the hyperplasia he will let me know if he wishes to proceed. Condition: stable Disposition: same day Specimens:: None Complications:: None
== END 2020-03-08 15:15 | disposition home or self-care (01) ==
LOC: OUTP 13:36
PROVIDERS: PCP Family Medicine; Visit Provider Urology
PROC: (CPT 52000; principal; 2020-03-08 14:30)
DX: N40.1 Benign prostatic hyperplasia with lower urinary tract symptoms (principal); R39.14 Feeling of incomplete bladder emptying; R39.12 Poor urinary stream; Z87.448 Personal history of other diseases of urinary system; N32.89 Other specified disorders of bladder; Z88.0 Allergy status to penicillin; Z79.82 Long term (current) use of aspirin; Z79.899 Other long term (current) drug therapy; F41.9 Anxiety disorder, unspecified; E78.5 Hyperlipidemia, unspecified; I10 Essential (primary) hypertension; M19.90 Unspecified osteoarthritis, unspecified site
CPT/HCPCS: 52000

== ENCOUNTER → 2020-06-16 09:06 | Outpatient (CLI) | payer MEDICARE, BC, SELFPAY ==
[2020-06-16 10:24] LABS: Coronavirus 19 IgG Antibody Negative (Negative); Coronavirus 19 IgM Antibody Negative (Negative)
== END ==
PROVIDERS: Visit Provider Internal Medicine Gastroenterology
DX: Z01.89 Encounter for other specified special examinations (principal); Z13.810 Encounter for screening for upper gastrointestinal disorder; Z86.010 Personal history of colon polyps; K22.70 Barrett's esophagus without dysplasia
CPT/HCPCS: 36415; 86328

== ENCOUNTER 2020-06-18 07:21 | Day surgery (SDC) | payer MEDICARE, BC, SELFPAY ==
[2020-06-14 10:53] VITALS: BMI 34.2
[2020-06-18] VITALS (8 sets, daily range): BP systolic 102–164; BP diastolic 57–86; PULSE 63–75; RESP 18; TEMP 36.4; O2SAT 95–98
--- NOTE | 2020-06-18 09:02 | P.PCN_ITS ---
[facility] Procedure Note Procedure Note:: Upper Endoscopy Procedure Report: Esophagogastroduodenoscopy with cold biopsies Endoscopost: Kamran Hawthorne II, MD Referring Physician: Arcadio Cruz MD Date of Procedure: June 18, 2020 Equipment: Olympus GIF 180 standard upper endoscope Sedation: MAC sedation Indications: Mr. Sarmiento is an 80-year-old gentleman with a history of GERD and Cuellar's esophagus. 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 He underwent radiofrequency ablation on April 23, 2016. He had repeat EGD in May 2017 and had normal- appearing mucosa with very short segment Cuellar's esophagus and biopsies showed Cuellar's without dysplasia. I had recommended annual surveillance EGD and it has been 3 years. He is taking omeprazole 40 mg p.o. daily. He reports no dysplasia. He does have some left upper quadrant abdominal pain and discomfort with gassiness and minor bloating. Procedure: Prior to the procedure, a history and physical exam was performed, and patient's medications and allergies were reviewed. The risks, benefits and alternatives of the sedation and procedure were discussed with the patient. All questions were answered and informed consent was obtained. The patient was brought to the procedure room. Patient identification and proposed procedure were verified by the physician and the nurse. The patient was placed in a left lateral decubitus position and the scope was passed under direct vision. Throughout the procedure, the patient's blood pressure, pulse, and oxygen saturations were monitored continuously. The upper GI endoscopy was accomplished without difficulty. The patient tolerated the procedure well. Findings: The scope was passed directly into the upper esophagus and advanced to the third portion of the duodenum. The post bulbar duodenum and duodenal bulb were normal with normal mucosa and conniventes. The scope was withdrawn through a normal duodenal bulb and pylorus into the stomach. There was bile reflux with moderate linear reactive gastropathy. The remainder of the antrum, body and fundus of the stomach were grossly normal. Upon retroflexion there was 1 to 2 cm small hiatal hernia. The scope was then withdrawn into the esophagus. There did appear to be more mucosal irregularity with NBI (narrowband imaging) evidence of nodular Cuellar's and probable dysplasia. This was short segment and at the GE junction. Multiple biopsies were obtained. There was no evidence of reflux esophagitis. Impression: 1. 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 Nonerosive GERD with small 1 to 2 cm hiatal hernia 3. Bile reflux with linear reactive gastropathy Plan: I will follow-up the biopsies. I do feel that he would be an unlikely candidate for surgery based upon age and comorbidities. We will discuss additional treatment options. If biopsies do show adenocarcinoma at the GE junction, we will do staging evaluation and I will refer to oncology.
--- NOTE | 2020-06-18 09:03 | HMH.ANESCL ---
[facility] Anesthesia Checklist - Structural Data Admitted From: Home Planned Operative Procedure/s: egd/colonoscopy Consent for Planned Operative Procedure(s) Verified: Yes - Additional verifications Anesthesia Reactions: No Hx Blood Transfusions: No Blood Transfusion Reaction: Yes - Airway Assessment C-Spine Mobility Assessed: Yes TMJ Mobility Assessed: Yes Dentition: Dentures-good fit - Neurological Assessment Level of Consciousness: Awake, Alert, Appropriate - Anesthesia Plan Anesthesia Risk discussed: Yes Anesthesia Plan: Verified ASA Class: III Anesthesia Type: MAC [facility] History I have reviewed the patient's past medical history: Yes Medical History: Reports:: Anxiety, Atherosclerotic Heart Disease, Cardiomyopathy, Congestive Heart Failure, Coronary Artery Disease, Depression, Gastroesophageal Reflux Disease(GERD), Hyperlipidemia, Hypertension, Urinary Tract Infection Denies:: Cancer, Diabetes Mellitus Type 1, Diabetes Mellitus Type 2, Internal Pacemaker, Lung Disease, MRSA, Seizures *Have you ever received a pneumonia vaccine?: Yes *Have you received a flu vaccine this season?: No Other Medical History: Reports: Arthritis, Blood Transfusion Reaction, Hypothyroidism, Sinus Problems, Other Anesthesia experience/problems:: none Laterality Cases: Left: Total Knee Replacement, Right: Total Hip Replacement, Bilateral: Tonsillectomy Other Surgeries: Yes: CABG, Cardiac Catheterization, Cardiac Surgery, Cholecystectomy, Colonoscopy, Coronary Stent, EGD, Open Heart Surgery, Sinus Surgery, Other (SI Joint, Esophagus, Prostate sx, Rhinoplasty, ). No: Pacemaker Amputation: No Fractures: No - *Social History Last grade of school completed: Advanced degree Smoking Status: Never smoker #Yrs smoked (if former smoker): 25 Alcohol Intake: never Alcohol Intake Frequency:: other Substance Use Type: denies use *Occupational Status:: retired Housing: house Household Members: spouse *Travel in the last 8 weeks: None - Psychiatric History Pschychiatric History:: Reports:: Anxiety, Depression Family Hx:: Cancer, Hypertension
--- NOTE | 2020-06-18 09:32 | HMH.PROC ---
[facility] Procedure Note Procedure Note:: Colonoscopy Procedure Report: Colonoscopy Endoscopist: Kamran Hawthorne II, MD Referring physician: Arcadio Cruz MD Date of Procedure: June 18, 2020 Equipment: Olympus 180 variable stiffness pediatric colonoscope Sedation: MAC sedation Indication: Mr. Sarmiento is an 80-year-old gentleman who is here for diagnostic colonoscopy. He has had some left upper quadrant abdominal pain and discomfort with gassiness and minor bloating. He reports regular bowel function but does have some obstipation with excessive wiping and straining. He reports no rectal bleeding or weight loss. He reports no family history of colon cancer. His last colonoscopy in September 2013 revealed 2 diminutive colon polyps (tubular adenomas x2) which were removed. He also had extensive left-sided diverticulosis Procedure: Prior to the procedure, a history and physical exam was performed, and patient's medications and allergies were reviewed. The risks, benefits and alternatives of the sedation and procedure were discussed with the patient. All questions were answered and informed consent was obtained. The patient was brought to the procedure room. Patient identification and proposed procedure were verified by the physician and the nurse. The patient was placed in a left lateral decubitus position and the scope was passed under direct vision. Throughout the procedure, the patient's blood pressure, pulse, and oxygen saturations were monitored continuously. The colonoscopy was accomplished without difficulty. The patient tolerated the procedure well. Findings: On digital rectal examination there was normal rectal tone. There were no external hemorrhoids. The colonoscope was introduced through the anal canal to the rectum and advanced to the cecum. The ileocecal valve and appendiceal orifice were identified. The scope was advanced a short distance into the ileum which appeared grossly normal. The scope was then withdrawn into the colon. The cecum, ascending and transverse colon and mucosa were grossly normal. There were extensive scattered diverticuli throughout the descending and sigmoid colon (LEFT colon). The rectum itself was normal. Upon retroflexion within the rectum there were grade 1-2 internal hemorrhoids. The preparation was excellent throughout with [place] Preparation Score of 9. The cecal time was 10 minutes. Impression: 1. Extensive left-sided diverticulosis 2. Grade 1-2 internal hemorrhoids Plan: I do feel that his left-sided abdominal pain is due to obstipation/spastic diverticular disease. We will discuss dietary measures and treatment options including a fiber bowel regimen. The patient will not require any further surveillance/screening colonoscopy. I am most concerned about his esophageal Cuellar's/nodular Cuellar's which will likely require further intervention.
== END 2020-06-18 10:25 | disposition home or self-care (01) ==
LOC: OUTP 07:24
PROVIDERS: PCP Family Medicine; Visit Provider Internal Medicine Gastroenterology
PROC: 0DJ08ZZ Inspection of Upper Intestinal Tract, Via Natural or Artificial Opening Endoscopic (ICD-10-PCS; CPT 43235; principal; 2020-06-18 08:30)
DX: K22.711 Barrett's esophagus with high grade dysplasia (principal); K44.9 Diaphragmatic hernia without obstruction or gangrene; K57.30 Diverticulosis of large intestine without perforation or abscess without bleeding; K64.0 First degree hemorrhoids; Z12.11 Encounter for screening for malignant neoplasm of colon; K21.9 Gastro-esophageal reflux disease without esophagitis; K31.9 Disease of stomach and duodenum, unspecified; Z86.010 Personal history of colon polyps; Z87.19 Personal history of other diseases of the digestive system; I25.10 Atherosclerotic heart disease of native coronary artery without angina pectoris; I11.0 Hypertensive heart disease with heart failure; I50.9 Heart failure, unspecified
CPT/HCPCS: 43239; G0121; 88305

== ENCOUNTER → 2021-01-25 11:20 | Outpatient (CLI) | payer MEDICARE, BC, SELFPAY | PROVIDERS: Visit Provider Internal Medicine Gastroenterology | DX: Z01.812 Encounter for preprocedural laboratory examination (principal); Z11.52 Encounter for screening for COVID-19 | CPT/HCPCS: U0003 ==

== ENCOUNTER → 2021-02-06 09:59 | Outpatient (CLI) | payer MEDICARE, BC, SELFPAY ==
--- NOTE | 2021-02-06 10:05 | XR_ITS ---
PROCEDURE: XR SHOULDER LT MIN 2V CLINICAL INDICATION: left shoulder pain COMPARISON: No exams were available for comparison FINDINGS: There are mild osteoarthritic changes of the acromioclavicular joint with mild superior elevation of the distal acromion. Moderate osteoarthritic changes are present at the glenohumeral joint No acute fracture or dislocation. Other findings:None. IMPRESSION: Osteoarthritis as described above Dictated by: Anson Durand MD 02/06/2021 12:20 Anson Durand MD in [place] 02/06/2021 12:20
== END ==
PROVIDERS: PCP Family Medicine; Visit Provider Orthopaedic Surgery
DX: M25.512 Pain in left shoulder (principal)
CPT/HCPCS: 73030

== ENCOUNTER 2021-03-30 14:05 | Emergency (ER) | payer MEDICARE, BC, SELFPAY ==
[2021-03-30 14:20] VITALS: BP 116/63; PULSE 73; RESP 20; TEMP 36.6; O2SAT 95; BMI 34.9
--- NOTE | 2021-03-30 14:49 | HMH.EDUTC ---
[facility] [place] Clinical Impression: Sinusitis Qualifiers: Sinusitis location: maxillary Chronicity: acute Recurrence: non-recurrent Qualified Code(s): J01.00 - Acute maxillary sinusitis, unspecified Disposition: Home, Self-Care Condition on Discharge: Good Instructions: Sinusitis, DI for Sinusitis Additional Instructions: Start antibiotic patient to take as ordered for a full length of time even if you feel better. Sinus infections do not get better overnight. It may take 2-3 days to notice much improvement so be sure to use conservative measures as discussed for symptoms. Flonase 1 spray each nostril daily to help with nasal congestion, sinus and ear pressure/information Increase fluids Humidifier/vaporizer as needed Tylenol and ibuprofen as needed for fever or pain. If symptoms do not improve or get worse return or be seen in the ER Follow-up with primary care this week Prescriptions: cephALEXin [Cephalexin 500mg Tab] 500 mg PO BID 7 Days #14 tab Prescription Printed Fluticasone Propionate [Flonase 50mcg nasal spray 16gm] 1 spr NS DAILY 14 Days #1 bottle Prescription Printed Referrals: Juliocesar Whitehead MD [Primary Care Provider] - Time of Disposition: 15:08 Medical Decision Making - Aleksander Inquiry Pt receiving controlled substance: No Vital Signs: 03/30/21 14:20 Temperature 97.9 F Temperature Source Oral Pulse Rate [Left Brachial] 73 Respiratory Rate 20 Blood Pressure [Left Arm] 116/63 Blood Pressure Mean [Left Arm] 80 Blood Pressure Source [Left Arm] Automatic Cuff Blood Pressure Position [Left Arm] Sitting 02 Sat by Pulse Oximetry 95 Oxygen Delivery Method Room Air Orders (Tests/Meds): ED MEDICATIONS Discontinued Medications Generic Name Dose Route Start Last Admin Trade Name Monica PRN Reason Stop Dose Admin Dexamethasone Sodium Phosphate 4 mg 03/30/21 14:56 Dexamethasone 4mg/Ml 1ml Vial IM 03/30/21 14:57 ONCE [place] [facility] [place] - General Chief complaint: [facility] Stated complaint: headache, dizzy nausea Time Seen by Provider: 03/30/21 14:49 Mode of Arrival: Ambulatory Source of Information: Patient, Spouse Limitations: No Limitations Description of Symptoms (Recalled from Triage Doc. by RN): PATIENT C/O SINUS HEADACHE, DIZZINESS, AND NAUSEA X 2 DAYS HEENT Symptoms (Recalled from RN notes): No Resp Symptoms (Recalled from RN notes): No Skin Symptoms (Recalled from RN notes): Yes MS Symptoms (Recalled from RN notes): No Functional Status (Recalled from RN notes): WNL - History of Present Illness Provider Complaint: 80 yr old male presents for beebe, dizziness, sinus pressure and nausea. Pt states it feels like he has a sinus infection. pt states the pain is causing him to have nausea. - Related Data Home Medications Medication Instructions Recorded Confirmed levothyroxine 88 mcg tablet 88 mcg PO DAILY 30 Days #30 11/02/17 03/28/21 venlafaxine 75 mg capsule,extended 75 mg PO DAILY 30 Days #30 11/02/17 03/28/21 release 24 hr alprazolam 0.25 mg tablet 0.25 mg PO NEEDED PRN 30 Days 01/18/18 03/28/21 #90 aspirin 81 mg tablet,delayed 81 mg PO DAILY 05/27/18 03/28/21 release Garlic 2,000 mg PO DAILY 03/23/19 03/28/21 L.acidoph,Paracasei, B.lactis 1 each PO DAILY 03/23/19 03/28/21 [Probiotic] [place]-3 Fatty Acids [Fish Oil] 600 mg PO DAILY 03/23/19 03/28/21 Turmeric 400 mg PO DAILY 03/23/19 03/28/21 Ubidecarenone [Q-Sorb Co Q-10] 200 mg PO DAILY 03/23/19 03/28/21 Vitamin D3/Vitamin K2 (Mk4) [K2 1 each PO DAILY 03/23/19 03/28/21 Plus D3 Tablet] Gabapentin [Gabapentin 400mg Cap] 400 mg PO TID 07/08/19 03/28/21 tamsulosin 0.4 mg capsule 0.4 mg PO DAILY cap 02/10/20 03/28/21 Alirocumab [Praluent Pen] 150 mg SQ Q2W 03/06/20 03/28/21 Ascorbic Acid [Vitamin C] 1,000 mg PO DAILY 03/06/20 03/28/21 Furosemide [Furosemide 20mg Tab*] 20 mg PO DAILY 03/06/20 03/28/21 sucralfate 1 gram tablet 1 g PO tab 11/28/20 03/28/21 nortriptyline 25 mg capsule 25 mg PO
[2021-03-30 15:02] VITALS: BP 116/63; PULSE 73; RESP 20; TEMP 36.6; O2SAT 95
== END 2021-03-30 15:17 | disposition home or self-care (01) ==
PROVIDERS: Emergency Provider Nurse Practitioner Family; PCP Family Medicine
DX: J01.00 Acute maxillary sinusitis, unspecified (principal); F41.8 Other specified anxiety disorders; K21.9 Gastro-esophageal reflux disease without esophagitis; E78.5 Hyperlipidemia, unspecified; I10 Essential (primary) hypertension; I42.8 Other cardiomyopathies; I25.10 Atherosclerotic heart disease of native coronary artery without angina pectoris; Z79.899 Other long term (current) drug therapy
CPT/HCPCS: G0463; 96372; 99202

== ENCOUNTER → 2021-04-01 12:07 | Outpatient (CLI) | payer MEDICARE, BC, SELFPAY ==
--- NOTE | 2021-04-01 12:08 | NM_ITS ---
APPROVED REPORT Exam: Nuclear Stress Test Indication: CAD, CABG, HTN, HYPERLIPIDEMIA, TOB USE, SOB, FATIGUE Patient Location: Outpatient Stress Tech: Emma Doshi [place] Tech:NATHANIEL Miramontes RT (R)(N)(M) Ht: 5 ft 8 in Wt: 230 lbs HR: 64 bpm BP: 175/83 mmHg BSA: 2.17 m2 BMI: 34.9 History: CAD, CABG, HTN, HYPERLIPIDEMIA, TOB USE, SOB, FATIGUE Procedure: Patient received a 0.4 mg of intravenous Lexiscan, resting heart rate 64 bpm, resting blood pressure 175/83 mmHg, with Lexiscan maximum heart rate achived was 85 bpm which is Less than 85 % of the maximum predicted heart rate and blood pressure was 160/83 mmHg. With Lexiscan, patient denied any complaint of chest pain. Electrocardiogram Resting electrocardiogram shows sinus rhythm, with Lexiscan there is less than 1.[address] segment depression noted from the baseline EKG. The EKG portion of the Lexiscan is nondiagnostic. Cardiac Stress and Resting SPECT Images: Cardiac Stress and Resting SPECT images were obtained using technetium 99m Myoview 29.8 mCi stress and 10.88 mCi at rest. Gated SPECT for analysis of segmental wall motion and calculation of the ejection fraction also done. Prone images were also obtained. Cardiac stress and resting SPECT images show a fixed defect involving the inferior and posterior basal wall consistent with nontransmural myocardial scarring without significant gomez-infarct ischemia, computer derived ejection fraction is 42% with moderate inferior wall hypokinesis, however there is transient ischemic dilatation of the left ventricle seen, raising the concerns for presence of multivessel coronary artery disease. Right ventricle is mildly enlarged with normal contractility. Conclusion: 1. The EKG portion of the Lexiscan is nondiagnostic. 2. Scintigraphic evidence of nontransmural myocardial scarring involving the inferior wall without significant gomez-infarct ischemia, computer derived ejection fraction is 42% with segmental wall motion abnormality described above, however there is transient ischemic dilatation of the left ventricle seen, raising the concerns for presence of multivessel coronary artery disease, right ventricle is mildly enlarged with normal contractility. 3. Abnormal Lexiscan Myoview study. Electronically signed by : To Ramirez, 04/01/2021 23:41:19
--- NOTE | 2021-04-01 14:00 | CA_ITS ---
APPROVED REPORT Pharmacy Analyst: KITA Laterality: Bilateral Study Quality: Adequate Indications: bilateral carotid bruits Risk Factors Hypertension: Hyperlipidemia CAD, Dizziness Doppler Spectral Velocity Analysis ECA (R) 55.60/4.80 cm/s ECA (L) 59.90/7.50 cm/s dICA (R) 66.10/23.10 cm/s dICA (L) 56.10/19.80 cm/s Eliu (R) 66.10/19.90 cm/s Eliu (L) 73.80/26.70 cm/s pICA (R) 42.20/13.40 cm/s pICA (L) 55.10/17.10 cm/s dCCA (R) 50.80/13.90 cm/s dCCA (L) 49.70/11.20 cm/s pCCA (R) 61.00/12.80 cm/s pCCA (L) 98.80/20.20 cm/s Vert (R) 47.50/9.00 cm/s Vert (L) 39.00/9.60 cm/s ICA/CCA 1.30 ICA/CCA 1.48 Findings Duplex evaluation demonstrates stenosis of the right proximal internal carotid artery in the range of 20-49%. Duplex evaluation demonstrates stenosis of the left proximal internal carotid artery in the range of 20-49%. B-Mode Ultrasound demonstrates mild intraluminal plaque in the bilateral internal Carotid Arteries. Duplex evaluation demonstrates antegrade flow of the bilateral Vertebral Arteries. Conclusion Duplex evaluation demonstrates stenosis of the right proximal internal carotid artery in the range of 20-49%. Duplex evaluation demonstrates stenosis of the left proximal internal carotid artery in the range of 20-49%. B-Mode Ultrasound demonstrates mild intraluminal plaque in the bilateral internal carotid arteries. Duplex evaluation demonstrates antegrade flow of the bilateral vertebral arteries. Electronically signed by : Anson Durand MD 04/01/2021 16:03:40
--- NOTE | 2021-04-01 14:00 | CA_ITS ---
APPROVED REPORT EXAM: Comprehensive 2D, Doppler, and color-flow Echocardiogram Category Development Manager: SATYA Zarco, RVS Ht: 5 ft 8 in Wt: 233lbs BSA: 2.18 BP: 000/00 mmHg Indications: SOB, ABN EKG, CAD-CABG, KENNY, PREOP CLEARANCE Echo Enhancing Agent Comments: Extremely difficult exam due to large body habitus with excessive lung impedence 2D Dimensions IVSd 1.35 cm LVEF (Visual) 64.60 % PWd 1.35 cm LA Volume 77.10 mL LVDd 5.55 cm LA Volume Index 35.40 mL/m2 (M/F) 16-34 LVDs 3.57 cm Left Atrium 4.55 cm LVOT 2.04 cm (M/F) 1.5-2.5 M-Mode Dimensions LA Diam 4.58 cm (1.9-4.0) Ao Diam 4.05 cm (2.0-3.7) TAPSE 1.24 (<1.7) LV Diastology E Decel Time 217.00 (160-240 msec) E/A Ratio 0.75 MED E' 5.20 (< 7 cm/sec) MED A' 6.90 cm/s E'/MED E' Ratio 13.08 (>14) LAT E' 7.30 (<10 cm/sec) LAT A' 7.70 cm/s E/LAT E' Ratio 9.32 (>14) Aortic Valve LVOT Max 74.00 (70-110 cm/s) LVOT VTI 17.69 cm AoV Peak Messi. 108.00 (50-130 cm/s) AI PHT 552.00 ms AO Peak GR. 4.70 mmHg AO Mean GR. 2.30 (<5 mmHg) AO VTI 22.37 (18-25 cm) LUCIUS (VTI) 2.58 (2.5-4.5 cm2) Mitral Valve MV A Velocity 91.00 (40-130 cm/s) E/A Ratio 0.75 MV Decel. Time 217.00 (160-240 ms) Tricuspid Valve TR P. Velocity 206.00 cm/s RAP Estimate 10.00 mmHg RVSP 27.00 mmHg Left Ventricle Technically very difficult study because of the patient factors and poor acoustic windows, repeat study with Definity contrast is recommended. Mildly enlarged left atrium, normal left ventricular size, mild concentric left ventricular hypertrophy, visually estimated ejection fraction approximately 50%, endocardial surfaces is very poorly visualized. Diastolic parameters are inconclusive. Right Ventricle Right atrium and right ventricle are normal size and contractility. Aortic Valve Aortic valve is minimally thickened and fibrosed, there is no aortic stenosis, there is trace aortic insufficiency. Mitral Valve Mitral valve grossly normal, there is mild mitral regurgitation. Tricuspid Valve Tricuspid valve grossly normal, there is mild tricuspid regurgitation, tricuspid regurgitation jet velocity is inadequate for calculation of the right ventricular systolic pressure. Pulmonic Valve Pulmonic valve is poorly visualized. Great Vessels Aortic root is normal size. Pericardium No significant pericardial effusion noted. Conclusion 1. Mildly enlarged left atrium, normal left ventricular size, visually estimated ejection fraction approximately 50%, endocardial surfaces are very poorly visualized, repeat study Definity contrast is recommended for analysis of wall motion abnormalities. Diastolic parameters are inconclusive. 2. Thickened and calcified aortic valve without aortic stenosis, there is trace aortic insufficiency. 3. Mild mitral and tricuspid regurgitation. 4. No significant pericardial effusion noted. Electronically signed by : To Ramirez, 04/01/2021 23:27:30
--- NOTE | 2021-04-01 14:59 | CA_ITS ---
APPROVED REPORT Exam: Pharmacologic Technologist: Emma Doshi, Ht: 5 ft 8 in Wt: 233 lbs BSA: 2.18 m2 HR: 64 bpm BP: 175/83 mmHg Medical History Medications: Alprazolam,,,,, Aspirin,,,,, Gabapentin,,,,, Vitamin C,,,,, Vitamin D3,,,,, Losartan,,,,, Carvedilol,,,,, TAMSULOSIN,,,,, Sucralfate,,,,, Nortriptylin,,,,, LevothROXINE,,,,, Potassium,,,,, Stress Test Details Test: LEXISCAN HR Resting HR: 64 bpm Max Heart Rate (APMHR): 140.661761 bpm Max HR Achieved: 87 bpm Target HR (85% APMHR): 119.780775 bpm % of APMHR: 62.14 Recovery HR: 70 bpm BP Resting BP: 175/83 mmHg Max BP: 176/86 mmHg Recovery BP: 176.0/86.0 mmHg ECG Resting ECG: NSR, [place] Clinical Reason for Termination: Completed Protocol Exercise duration: 04:01 min Highest Stage Achieved: Stress ECG Conclusion Symptoms: None Arrhythmias/Ectopy: Rare PVC ST-T Changes: <1.5mm ST Segment changes Conclusion: Non-Diagnostic Test Summary REST 04:09 . . 64 . 175/ 83 . . Stage 1 01:00 . . 75 . . . . Stage 2 01:00 . . 85 . 160/ 83 . . Stage 3 01:00 . . 84 . 161/ 82 . . Stage 4 01:00 . . 79 . 162/ 86 . . Stage 4 01:01 . . 79 . 162/ 86 . Stop exercise at 04:01 RECOVERY 01:00 . . 78 . . . . RECOVERY 02:00 . . 74 . . . . RECOVERY 02:24 . . 73 . 176/ 86 . . Electronically signed by : To Ramirez, 04/01/2021 23:30:43
== END ==
PROVIDERS: PCP Family Medicine; Visit Provider Physician Assistant
DX: E78.2 Mixed hyperlipidemia (principal); F41.9 Anxiety disorder, unspecified; I10 Essential (primary) hypertension; I25.10 Atherosclerotic heart disease of native coronary artery without angina pectoris; I42.8 Other cardiomyopathies; R06.00 Dyspnea, unspecified; R94.31 Abnormal electrocardiogram [ECG] [EKG]; Z95.1 Presence of aortocoronary bypass graft; R09.89 Other specified symptoms and signs involving the circulatory and respiratory systems; Z11.52 Encounter for screening for COVID-19
CPT/HCPCS: 78452; 93017; 93306; 93880; A9502; J2785; U0003

== ENCOUNTER → 2021-04-02 11:41 | Outpatient (CLI) | payer MEDICARE, BC, SELFPAY ==
[2021-04-02 12:11] LABS: Basophils % 0.6 % (0.1-2.0); Eosinophils # 0.3 K/mm3 (0.0-0.4); Eosinophils % 3.5 % (0.1-12.0); Hematocrit 38.7 % (42.0-52.0); Hemoglobin 13.1 g/dL (14.1-18.0); Lymphocytes # 1.1 K/mm3 (0.7-4.5); Mean Corpuscular HGB Conc 33.9 g/dL (31.8-35.4); Mean Corpuscular Hemoglobin 29.6 pg (27.0-31.2); Mean Corpuscular Volume 87.3 fl (80-94); Mean Platelet Volume 7.9 fl (7.4-10.4); Monocytes # 0.5 K/mm3 (0.1-1.0); Monocytes % 7.5 % (1.7-9.3); Neutrophils # 5.2 K/mm3 (1.8-7.8); Neutrophils % 73.5 % (37.0-80.0); Platelet Count 190 K/mm3 (142-424); Red Blood Count 4.43 M/mm3 (4.60-6.20); Red Cell Distribution Width 14.6 % (11.5-17.5); White Blood Count 7.1 K/mm3 (4.8-10.8)
[2021-04-02 12:59] LABS: Alanine Aminotransferase 18 U/L (12-78); Albumin Level 4.1 g/dl (3.5-5.0); Albumin/Globulin Ratio 1.7 (1.1-1.8); Alkaline Phosphatase 71 U/L (38-126); Anion Gap 11.4 mEq/L (5-15); Aspartate Amino Transferase 26 U/L (17-59); Bilirubin,Total 0.5 mg/dl (0.2-1.3); Blood Urea Nitrogen 8 mg/dl (9-20); Carbon Dioxide 30 mmol/L (22.0-30.0); Chloride 92 mmol/L (98-107); Estimated Glomerular Filt Rate 81 ml/min (>60); GFR (African American) 98 ML/MIN (>60); Globulin 2.4 g/dL (1.3-3.2); Magnesium 1.8 mg/dl (1.6-2.3); Potassium 4.4 mmoL/L (3.5-5.1); Sodium 129 mmol/L (136-145); Total Protein,Serum 6.5 g/dl (6.3-8.2)
[2021-04-02 14:32] LABS: Calcium 9.1 mg/dl (8.4-10.2); Glucose 83 mg/dl (74-100)
== END ==
PROVIDERS: Visit Provider Urology
DX: R06.00 Dyspnea, unspecified (principal); R42 Dizziness and giddiness; I25.10 Atherosclerotic heart disease of native coronary artery without angina pectoris; R94.30 Abnormal result of cardiovascular function study, unspecified
CPT/HCPCS: 36415; 80053; 83735; 85025; 86140

== ENCOUNTER → 2021-04-03 07:37 | Outpatient (CLI) | payer MEDICARE, BC, SELFPAY ==
--- NOTE | 2021-04-03 07:41 | CT_ITS ---
PROCEDURE: CT HEAD/BRAIN WO CON CLINICAL INDICATION: DIZZINESS,NAUSEA,FRONTAL HEADACHE COMPARISON: CT HWWO CT HEAD-W/WO CONTRAST from 10/29/2015 TECHNIQUE: Axial images obtained. All CT scans at the facility use one or more dose reduction, viz: automated exposure control, ma/kV adjustment per patient size (including targeted exams where dose is matched to indication, i.e. head), or iterative reconstruction technique. FINDINGS: No midline shift, mass effect, intracranial hemorrhage, hydrocephalus, or extra-axial fluid collection is evident. There is mild generalized atrophy. The calvarium has an unremarkable appearance. There is mild mucosal thickening of the ethmoid sinuses and a small amount fluid within the right mastoid sinus. No paranasal sinus air-fluid levels evident. IMPRESSION: No acute intracranial finding Dictated by: Anson Durand MD 04/03/2021 08:22 Anson Durand MD in [facility] 04/03/2021 08:22
== END ==
PROVIDERS: PCP Family Medicine; Visit Provider Nurse Practitioner Family
DX: R42 Dizziness and giddiness (principal); R11.0 Nausea; R51.9 Headache, unspecified
CPT/HCPCS: 70450

== ENCOUNTER → 2021-04-06 10:44 | Outpatient (CLI) | payer MEDICARE, BC, SELFPAY | PROVIDERS: Visit Provider Internal Medicine | DX: E78.2 Mixed hyperlipidemia (principal); I10 Essential (primary) hypertension; I25.10 Atherosclerotic heart disease of native coronary artery without angina pectoris; I42.8 Other cardiomyopathies; R06.00 Dyspnea, unspecified; R11.0 Nausea; R42 Dizziness and giddiness; R94.30 Abnormal result of cardiovascular function study, unspecified; Z95.1 Presence of aortocoronary bypass graft; Z01.812 Encounter for preprocedural laboratory examination; Z11.52 Encounter for screening for COVID-19 | CPT/HCPCS: U0003 ==

== ENCOUNTER 2021-04-08 07:52 | Day surgery (SDC) | payer MEDICARE, BC, SELFPAY ==
[2021-04-08] VITALS (72 sets, daily range): BP systolic 66–170; BP diastolic 30–105; PULSE 57–80; RESP 16–18; TEMP 36.3–36.7; O2SAT 91–100; BMI 35.1
--- NOTE | 2021-04-08 07:05 | IR_ITS ---
APPROVED REPORT Patient Location: Outpatient Ergonomic Specialist: NATHANIEL Barron RT (R) PROCEDURES Left heart catheterization Left ventriculogram Selective coronary angiogram Left internal mammary angiography Selective engagement of saphenous vein graft to the ramus intermedius Selective engagement of saphenous vein graft to the diagonal artery Selective engagement of the saphenous vein graft to the right coronary Drug-eluting stent deployment to the saphenous vein graft supplying the ramus intermedius in the ostial proximal segment and mid segment in a noncontiguous manner Drug-eluting stent deployment to the saphenous vein graft supplying the first diagonal artery Drug-eluting stent deployment to the proximal dominant circumflex artery INDICATION Coronary artery disease, History of coronary bypass surgery, High risk abnormal Myoview, Multivessel coronary disease Informed consent was obtained prior to the procedure. COMPLICATIONS None Estimated Blood Loss: Less than 10 mls TECHNIQUE One percent lidocaine used to anesthetize the right groin. The right femoral artery was accessed via the Seldinger technique and a 5 Thai sheath was placed in the right femoral artery. A JL 4, JR4 catheter were used to perform left heart catheterization, left ventriculogram selective coronary angiography as well as selective engagement of the 3 vein grafts and the left internal mammary artery. At the end of the diagnostic angiogram the 5 Thai sheath was exchanged for a 6 Thai sheath. Due to tortuosity in the aorta this was exchanged for a long 45 cm bright tip 6 Thai sheath. A 6 Thai JR4 guide catheter was placed in the saphenous vein graft supplying the large ramus intermedius. A Choice PT extra-support wire was then advanced. Primary stenting could not be performed therefore a guide liner was advanced this allowed delivery of a 3.5 x 18 mm resolute Louie stent to be deployed at 24 dinesh in the ostial proximal segment. A 3.5 x 38 mm resolute Louie stent was then placed in the mid segment followed by an additional 3.5 x 22 mm resolute Levant stent also been deployed at 24 dinesh. Excellent angiographic results were obtained with CATHY-3 flow down the vein graft before and after the procedure. The guide liner was then removed along with the wire from the vessel and the catheter was then placed in the saphenous vein graft supplying the first diagonal artery. Choice PT extra-support wire was advanced along with the guide liner and a 2.25 x 22 mm resolute Louie stent was then deployed at 20 dinesh in the midportion of the saphenous vein graft. CATHY-3 flow was present before and after the procedure. Excellent angiographic results were obtained. The apparatus was removed and an EBU 3.5 guide catheter was then placed in the circumflex artery were primary stenting could not be performed. The Choice PT extra-support wire was placed into the circumflex artery and a guide liner was advanced along with a 3 mm x 20 mm balloon deployed at 20 dinesh to predilate. Despite the predilatation stent could still not be delivered therefore a 3 mm x 12 mm balloon was inflated in the midportion of the circumflex artery and while the balloon was inflated the guide liner was advanced. As the balloon was deflated the guide liner was further advanced into the midportion of the circumflex artery which allowed delivery of a 3.5 x 38 mm resolute Louie stent to be deployed in the proximal mid segment of the circumflex artery at 20 dinesh. Excellent angiographic results were obtained before and after the procedure with CATHY-3 flow at the beginning and end of the procedure. After achieving excellent angiographic results the apparatus was removed. The long sheath was th
[2021-04-08 14:49] LABS: CATHL Activated Clotting Time 367 SEC (74-125)
[2021-04-08 14:49] LABS: CATHL Activated Clotting Time > 400 SEC (74-125)
--- NOTE | 2021-04-08 19:59 | PC.NURSE ---
Respiratory contacted at this time regarding cpap for patient this evening. Barbara states that she will be up shortly to have it set up for overnight use.
[2021-04-09] VITALS: BP 128/81; PULSE 70; PULSE 73; RESP 18; TEMP 36.8; O2SAT 98
--- NOTE | 2021-04-09 03:38 | PC.NURSE ---
PT HAS BEEN PLEASANT AND HAS RESTED WELL THIS SHIFT. HE IS A&O X4. PT HAD ASKED FOR A CPAP FOR OVERNIGHT USE BUT WAS UNABLE TO SLEEP WITH IT ON. HE REQUESTED NASAL CANNULA. APPLIED PER ORDERS. PATIENT HAS HAD MINIMAL PAIN WHICH WAS RELIEVED WITH PRN MEDICATION. CATH SITE REMAINS C/D/I IN THE RIGHT GROIN. VSS THROUGHOUT SHIFT. CALL ROMANO WITHIN REACH
[2021-04-09 04:00] VITALS: BP 132/89; PULSE 70; PULSE 73; RESP 18; TEMP 36.8; O2SAT 100
--- NOTE | 2021-04-09 06:23 | PC.NURSE ---
LAB AT BEDSIDE
[2021-04-09 06:55] LABS: Basophils % 0.3 % (0.1-2.0); Eosinophils # 0.3 K/mm3 (0.0-0.4); Eosinophils % 3.1 % (0.1-12.0); Hemoglobin 12.8 g/dL (14.1-18.0); Lymphocytes # 0.8 K/mm3 (0.7-4.5); Lymphocytes % 9.7 % (10-50); Mean Corpuscular HGB Conc 34.7 g/dL (31.8-35.4); Mean Corpuscular Hemoglobin 29.6 pg (27.0-31.2); Mean Corpuscular Volume 85.2 fl (80-94); Mean Platelet Volume 7.7 fl (7.4-10.4); Monocytes # 0.6 K/mm3 (0.1-1.0); Monocytes % 6.6 % (1.7-9.3); Neutrophils # 7.1 K/mm3 (1.8-7.8); Neutrophils % 80.4 % (37.0-80.0); Platelet Count 194 K/mm3 (142-424); Red Blood Count 4.34 M/mm3 (4.60-6.20); Red Cell Distribution Width 14.5 % (11.5-17.5); White Blood Count 8.8 K/mm3 (4.8-10.8)
[2021-04-09 07:21] LABS: Anion Gap 11.4 mEq/L (5-15); Blood Urea Nitrogen 7 mg/dl (9-20); Carbon Dioxide 26 mmol/L (22.0-30.0); Chloride 93 mmol/L (98-107); Creatinine Clearance Estimated 87 mL/min (50-200); Estimated Glomerular Filt Rate 93 ml/min (>60); GFR (African American) 113 ML/MIN (>60); Glucose 93 mg/dl (74-100); Potassium 4.4 mmoL/L (3.5-5.1); Sodium 126 mmol/L (136-145)
[2021-04-09 07:34] VITALS: BP 150/87; PULSE 77; RESP 19; TEMP 36.9; O2SAT 97
[2021-04-09 08:00] VITALS: PULSE 80
--- NOTE | 2021-04-09 09:38 | HMH.PHACLD ---
Manuel Sarmiento has received discharge medication counseling on the following medications: PATIENT TAKING LOSARTAN 100 MG DAILY, ASPIRIN 81 MG DAILY, CARVEDILOL 3.125 MG BID, AND BRILINTA 90 MG BID. STATIN NOT STARTED POST STENTING DUE TO ALLERGY TO MULTIPLE STATINS.
== END 2021-04-09 09:30 | disposition home or self-care (01) ==
LOC: CATHLAB 07:54 → 2ND 11:52
PROVIDERS: PCP Family Medicine; Visit Provider Internal Medicine
PROC: 027137Z Dilation of Coronary Artery, Two Arteries with Four or More Drug-eluting Intraluminal Devices, Percutaneous Approach (ICD-10-PCS; principal; 2021-04-08 07:00)
DX: I25.810 Atherosclerosis of coronary artery bypass graft(s) without angina pectoris (principal); E78.2 Mixed hyperlipidemia; I10 Essential (primary) hypertension; I25.10 Atherosclerotic heart disease of native coronary artery without angina pectoris; I42.8 Other cardiomyopathies; R06.00 Dyspnea, unspecified; R11.0 Nausea; R42 Dizziness and giddiness; R94.30 Abnormal result of cardiovascular function study, unspecified; Z95.1 Presence of aortocoronary bypass graft
CPT/HCPCS: 80048; 85025; 85347; 92928; 92937; 92938; 93459; 94660; 99152; 99153; C1725; C1769; C1876; C1894; C9600; C9604; C9605; J1644; J2720; Q9967

== ENCOUNTER → 2021-04-16 09:34 | Outpatient (CLI) | payer MEDICARE, BC, SELFPAY ==
[2021-04-16 10:22] LABS: Basophils % 0.6 % (0.1-2.0); Eosinophils # 0.3 K/mm3 (0.0-0.4); Eosinophils % 4.2 % (0.1-12.0); Hematocrit 36.9 % (42.0-52.0); Hemoglobin 11.9 g/dL (14.1-18.0); Lymphocytes # 0.8 K/mm3 (0.7-4.5); Lymphocytes % 13.6 % (10-50); Mean Corpuscular HGB Conc 32.1 g/dL (31.8-35.4); Mean Corpuscular Hemoglobin 28.8 pg (27.0-31.2); Mean Corpuscular Volume 89.7 fl (80-94); Mean Platelet Volume 6.5 fl (7.4-10.4); Monocytes # 0.4 K/mm3 (0.1-1.0); Monocytes % 6.7 % (1.7-9.3); Neutrophils # 4.6 K/mm3 (1.8-7.8); Neutrophils % 74.8 % (37.0-80.0); Platelet Count 195 K/mm3 (142-424); Red Blood Count 4.12 M/mm3 (4.60-6.20); Red Cell Distribution Width 13.8 % (11.5-17.5); White Blood Count 6.1 K/mm3 (4.8-10.8)
[2021-04-16 11:03] LABS: Chloride 93 mmol/L (98-107); Potassium 4.7 mmoL/L (3.5-5.1); Sodium 127 mmol/L (136-145)
[2021-04-16 11:05] LABS: Bilirubin,Unconjugated 0.2 mg/dL (0.0-1.1); Blood Urea Nitrogen 7 mg/dl (9-20); Estimated Glomerular Filt Rate 81 ml/min (>60); GFR (African American) 98 ML/MIN (>60)
[2021-04-16 11:06] LABS: Alanine Aminotransferase 16 U/L (12-78); Albumin Level 4.1 g/dl (3.5-5.0); Alkaline Phosphatase 76 U/L (38-126); Anion Gap 10.7 mEq/L (5-15); Aspartate Amino Transferase 26 U/L (17-59); Bilirubin,Direct 0.5 mg/dl (0.0-0.4); Bilirubin,Indirect 0.1 mg/dL (0.0-0.9); Bilirubin,Total 0.6 mg/dl (0.2-1.3); Calcium 9.1 mg/dl (8.4-10.2); Carbon Dioxide 28 mmol/L (22.0-30.0); Cholesterol 148 mg/dl (140-200); Glucose 108 mg/dl (74-100); HDL Cholesterol 50 mg/dl (40-60); Total Protein,Serum 6.5 g/dl (6.3-8.2); Triglycerides 119 mg/dl (30-150); VLDL Cholesterol 24 mg/dL (0-40)
[2021-04-16 11:17] LABS: Direct LDL Cholesterol 65.29 mg/dL (100-129)
[2021-04-16 11:23] LABS: Free T4 (Free Thyroxine) 0.88 ng/dl (0.78-2.19)
[2021-04-16 11:37] LABS: Thyroid Stimulating Hormone 2.62 uIU/mL (0.465-4.68)
== END ==
PROVIDERS: Visit Provider Physician Assistant
DX: E78.2 Mixed hyperlipidemia (principal); I10 Essential (primary) hypertension; I25.10 Atherosclerotic heart disease of native coronary artery without angina pectoris; I42.8 Other cardiomyopathies; R06.00 Dyspnea, unspecified; Z95.1 Presence of aortocoronary bypass graft; Z95.5 Presence of coronary angioplasty implant and graft; E78.5 Hyperlipidemia, unspecified
CPT/HCPCS: 36415; 80048; 80061; 80076; 84439; 84443; 85025

== ENCOUNTER 2021-04-18 13:54 | Outpatient (RCR) | payer MEDICARE, BC, SELFPAY | END 2021-07-31 10:34 | disposition home or self-care (01) | LOC: PT 13:54 | PROVIDERS: Visit Provider Internal Medicine | DX: I25.10 Atherosclerotic heart disease of native coronary artery without angina pectoris (principal); Z95.5 Presence of coronary angioplasty implant and graft | CPT/HCPCS: 93798 ==

== ENCOUNTER → 2021-04-30 09:14 | Outpatient (CLI) | payer MEDICARE, BC, SELFPAY ==
[2021-04-30 10:43] LABS: Chloride 95 mmol/L (98-107)
[2021-04-30 10:44] LABS: Potassium 4.8 mmoL/L (3.5-5.1); Sodium 131 mmol/L (136-145)
[2021-04-30 10:47] LABS: Anion Gap 12.8 mEq/L (5-15); Blood Urea Nitrogen 9 mg/dl (9-20); Calcium 9.2 mg/dl (8.4-10.2); Carbon Dioxide 28 mmol/L (22.0-30.0); Estimated Glomerular Filt Rate 81 ml/min (>60); GFR (African American) 98 ML/MIN (>60); Glucose 97 mg/dl (74-100)
== END ==
PROVIDERS: Physician Assistant; Visit Provider Internal Medicine
DX: I10 Essential (primary) hypertension (principal)
CPT/HCPCS: 36415; 80048

== ENCOUNTER 2021-05-07 20:40 | Emergency (ER) | payer MEDICARE, BC, SELFPAY ==
[2021-05-07] VITALS (7 sets, daily range): BP systolic 126–171; BP diastolic 71–100; PULSE 64–84; RESP 16; TEMP 36.6; O2SAT 97–100; BMI 34.2
--- NOTE | 2021-05-07 20:52 | XR_ITS ---
PROCEDURE INFORMATION: Exam: XR Chest Exam date and time: 05/07/2021 8:52 PM Age: 80 years old Clinical indication: Other: Chest pain; Prior surgery; Surgery date: 6+ months; Surgery type: Cabg x5 followed by cardiac stents. TECHNIQUE: Imaging protocol: XR of the chest. Views: 2 views. COMPARISON: CR XR CHEST 2V 07/08/2019 10:49 PM FINDINGS: Lungs: Prominent bilateral interstitial markings are likely due to atelectasis with scarring. No focal consolidations or infiltrates. Pleural spaces: Unremarkable. No pleural effusion. No pneumothorax. Heart/Mediastinum: See Bones/joints finding. Bones/joints: Mid sternotomy wires and postoperative changes of CABG noted. Diffuse osteopenia with multilevel degenerative changes of the spine. IMPRESSION: No acute cardiopulmonary findings.
--- NOTE | 2021-05-07 20:57 | ECG_ITS ---
APPROVED REPORT Exam: Resting ECG HR:78 bpm ECG Measurements Heart Rate 78 AXES MO 226 P 55 QRSd 136 QRS -66 QT 404 T 85 QTc 460 Conclusion Sinus rhythm with 1st degree AV block Left axis deviation Nonspecific intraventricular block Abnormal ECG Electronically signed by : Arcadio Brunson MD 05/08/2021 11:44:18
[2021-05-07 21:08] LABS: Alanine Aminotransferase 19 U/L (12-78); Albumin Level 4.2 g/dl (3.5-5.0); Alkaline Phosphatase 83 U/L (38-126); Anion Gap 10.8 mEq/L (5-15); Aspartate Amino Transferase 35 U/L (17-59); Bilirubin,Direct 0.4 mg/dl (0.0-0.4); Bilirubin,Total 0.4 mg/dl (0.2-1.3); Blood Urea Nitrogen 8 mg/dl (9-20); Calcium 8.9 mg/dl (8.4-10.2); Carbon Dioxide 28 mmol/L (22.0-30.0); Chloride 94 mmol/L (98-107); Creatinine Clearance Estimated 85 mL/min (50-200); Estimated Glomerular Filt Rate 93 ml/min (>60); GFR (African American) 113 ML/MIN (>60); Glucose 105 mg/dl (74-100); Potassium 4.8 mmoL/L (3.5-5.1); Sodium 128 mmol/L (136-145); Total Protein,Serum 6.6 g/dl (6.3-8.2)
[2021-05-07 21:12] LABS: Basophils % 0.5 % (0.1-2.0); Eosinophils # 0.4 K/mm3 (0.0-0.4); Eosinophils % 4.5 % (0.1-12.0); Hematocrit 35.4 % (42.0-52.0); Hemoglobin 12.2 g/dL (14.1-18.0); Lymphocytes # 1.3 K/mm3 (0.7-4.5); Lymphocytes % 16.6 % (10-50); Mean Corpuscular HGB Conc 34.5 g/dL (31.8-35.4); Mean Corpuscular Hemoglobin 30.3 pg (27.0-31.2); Mean Corpuscular Volume 87.8 fl (80-94); Mean Platelet Volume 7.2 fl (7.4-10.4); Monocytes # 0.6 K/mm3 (0.1-1.0); Monocytes % 7.6 % (1.7-9.3); Neutrophils # 5.5 K/mm3 (1.8-7.8); Neutrophils % 70.8 % (37.0-80.0); Platelet Count 180 K/mm3 (142-424); Red Blood Count 4.04 M/mm3 (4.60-6.20); Red Cell Distribution Width 14.5 % (11.5-17.5); White Blood Count 7.8 K/mm3 (4.8-10.8)
[2021-05-07 21:13] LABS: C-Reactive Protein 0.7 mg/L (0-4)
[2021-05-07 21:27] LABS: Troponin I < 0.01 ng/ml (0.00-0.034)
[2021-05-07 21:29] LABS: Procalcitonin < 0.030 ng/mL (0.0-2.0)
[2021-05-07 21:30] LABS: Lipase 191 U/L (23-300)
[2021-05-07 21:53] LABS: Erythrocyte Sedimentation Rate 37 mm/hr (0-20)
[2021-05-07 22:37] LABS: Microscopic, Urine URINE MICROSCOPIC (MICROSCOPIC)
[2021-05-07 22:38] LABS: Appearance,Urine CLEAR (Clear); Bilirubin,Urine Negative (Negative); Blood, Urine Negative (Negative); Color,Urine YELLOW (Yellow); Glucose,Urine (UA) Negative (Negative); Ketones,Urine Negative (Negative); Leukocyte Esterase,Urine Negative (Negative); Nitrate,Urine Negative (Negative); Protein,Urine Negative (Negative); Specific Gravity, Urine 1.015 (1.005-1.030); Urobilinogen,Urine 0.2 EU/dl (0.2)
--- NOTE | 2021-05-07 22:41 | HMH.EDCP ---
ED Disposition Clinical Impression: Atypical chest pain Disposition: Home, Self-Care Condition on Discharge: Good Instructions: DI for Atypical Chest Pain Additional Instructions: see pcp for follow up Referrals: Juliocesar Whitehead MD [Primary Care Provider] - - Critical Care Critical Care Time: No Attestation: On 05/07/21, the high probability of a clinically significant, sudden or life threatening deterioration of the following system(s) required my full and direct attention, intervention and personal management. The time I documented below is in addition to time spent performing reported procedures but includes the following listed in this critical care notation. Medical Decision Making - Medical Records Medical records reviewed: Yes: I reviewed the patient's medical records. - Aleksander Inquiry Pt receiving controlled substance: No Vital Signs: 05/07/21 20:41 Temperature 97.8 F Temperature Source Oral Pulse Rate [Left Radial] 84 Respiratory Rate 16 Blood Pressure [Right Arm] 171/100 H Blood Pressure Mean [Right Arm] 123 Blood Pressure Source [Right Arm] Automatic Cuff Blood Pressure Position [Right Arm] Supine 02 Sat by Pulse Oximetry 100 Oxygen Delivery Method Room Air - Lab Data Lab results reviewed: Yes: I reviewed the patient's lab results. Lab Results 05/07/21 20:40: Sodium 128 L, Potassium 4.8, Chloride 94 L, Carbon Dioxide 28, Anion Gap 10.8, BUN 8 L, Creatinine 0.80, Estimated Creat Clear 85, Estimated GFR 93, Est GFR ( Amer) 113, Glucose 105 H, Calcium 8.9, Total Bilirubin 0.4, Direct Bilirubin 0.4, Conjugated Bilirubin 0.0, Indirect Bilirubin 0.0, Unconjugated Bilirubin 0.0, AST 35, ALT 19, Alkaline Phosphatase 83, Troponin I < 0.01, C-Reactive Protein 0.7, Total Protein 6.6, Albumin 4.2, Procalcitonin < 0.030 05/07/21 20:40: Lipase 191 05/07/21 21:06: WBC 7.8, RBC 4.04 L, Hgb 12.2 L, Hct 35.4 L, MCV 87.8, MCH 30.3, MCHC 34.5, RDW 14.5, Plt Count 180, MPV 7.2 L, Neut % (Auto) 70.8, Lymph % (Auto) 16.6, Allen % (Auto) 7.6, Eos % (Auto) 4.5, Baso % (Auto) 0.5, Neut # (Auto) 5.5, Lymph # (Auto) 1.3, Allen # (Auto) 0.6, Eos # (Auto) 0.4, Baso # (Auto) 0.0, ESR 37 H 05/07/21 22:24: Urine Color Yellow, Urine Appearance Clear, Urine pH 7.0, Ur Specific [place] 1.015, Urine Protein Negative, Urine Glucose (UA) Negative, Urine Ketones Negative, Urine Blood Negative, Urine Nitrate Negative, Urine Bilirubin Negative, Urine Urobilinogen 0.2, Ur Leukocyte Esterase Negative, Urine RBC None, Urine WBC Occasional, Ur Squamous Epith Cells None, Urine Bacteria Trace 05/07/21 23:20: Troponin I < 0.01 Result diagrams: 05/07/21 21:06 05/07/21 20:40 Orders (Tests/Meds): ED MEDICATIONS Generic Name Dose Route Start Last Admin Trade Name Freq PRN Reason Stop Dose Admin Sodium Chloride 1,000 mls @ 999 mls/hr 05/07/21 21:00 05/07/21 21:09 Sod Chlor 0.9% 1000ml Bag IV 05/07/21 22:00 999 mls/hr .Q1H1M FABIANA Administration Sodium Chloride 8 ml 05/07/21 21:08 Sodium Chloride 0.9% 10ml Vial IV 06/06/21 21:07 NEEDED PRN dilute pepcid Discontinued Medications Generic Name Dose Route Start Last Admin Trade Name Freq PRN Reason Stop Dose Admin Aspirin 162 mg 05/07/21 20:51 05/07/21 21:08 Aspirin 81mg Chewable Tablet PO 05/07/21 20:52 162 mg ONCE ONE Administration Famotidine 20 mg 05/07/21 21:08 05/07/21 21:09 Famotidine 20mg/2ml Vial IV 05/07/21 21:09 20 mg ONCE ONE Administration Metoclopramide HCl 10 mg 05/07/21 21:08 05/07/21 21:09 Metoclopramide Hcl 10mg/2ml Vial IVP 05/07/21 21:09 10 mg ONCE ONE Administration ORDERS Category Date Time Status Troponin I Q3H Lab 05/08/21 02:51 Ordered - Radiology Data #1 Image(s): Chest Image Reviewed: Yes I reviewed the patient's radiology image Preliminary Findings: Normal/NAD - ECG Data Tracing #1 Normal Sinus Rhythm: Yes Ischemic changes: non-specific ST-T wave changes ECG co
[2021-05-07 22:45] LABS: Bacteria,Urine Trace /lpf; WBC,Urine Occasional #/hpf (0-3)
[2021-05-07 23:55] LABS: Troponin I < 0.01 ng/ml (0.00-0.034)
[2021-05-08] VITALS: BP 141/81; PULSE 67; RESP 16; O2SAT 100
[2021-05-08 00:10] VITALS: BP 141/81; PULSE 67; RESP 16; TEMP 36.6; O2SAT 97
== END 2021-05-08 00:12 | disposition home or self-care (01) ==
PROVIDERS: Emergency Provider Emergency Medicine; PCP Family Medicine
DX: R07.89 Other chest pain (principal); R10.13 Epigastric pain; F41.8 Other specified anxiety disorders; K21.9 Gastro-esophageal reflux disease without esophagitis; E78.5 Hyperlipidemia, unspecified; I10 Essential (primary) hypertension; I50.9 Heart failure, unspecified; I25.10 Atherosclerotic heart disease of native coronary artery without angina pectoris; E03.9 Hypothyroidism, unspecified; Z87.891 Personal history of nicotine dependence; Z79.899 Other long term (current) drug therapy
CPT/HCPCS: 71046; 80048; 80076; 81001; 83690; 84145; 84484; 85025; 85651; 86140; 93005; 96365; 96375; 99283

== ENCOUNTER → 2021-05-21 10:11 | Outpatient (CLI) | payer MEDICARE, BC, SELFPAY ==
[2021-05-21 11:31] LABS: Chloride 94 mmol/L (98-107)
[2021-05-21 11:32] LABS: Sodium 130 mmol/L (136-145)
[2021-05-21 11:34] LABS: Blood Urea Nitrogen 10 mg/dl (9-20); Estimated Glomerular Filt Rate 93 ml/min (>60); GFR (African American) 113 ML/MIN (>60)
[2021-05-21 11:35] LABS: Calcium 9.2 mg/dl (8.4-10.2); Carbon Dioxide 27 mmol/L (22.0-30.0); Glucose 102 mg/dl (74-100)
== END ==
PROVIDERS: Visit Provider Internal Medicine
DX: E87.1 Hypo-osmolality and hyponatremia (principal)
CPT/HCPCS: 36415; 80048

== ENCOUNTER → 2021-06-04 10:46 | Outpatient (CLI) | payer MEDICARE, BC, SELFPAY ==
[2021-06-04 13:13] LABS: Anion Gap 14.9 mEq/L (5-15); Blood Urea Nitrogen 8 mg/dl (9-20); Calcium 9.1 mg/dl (8.4-10.2); Carbon Dioxide 28 mmol/L (22.0-30.0); Chloride 95 mmol/L (98-107); Estimated Glomerular Filt Rate 93 ml/min (>60); GFR (African American) 112 ML/MIN (>60); Glucose 100 mg/dl (74-100); Potassium 4.9 mmoL/L (3.5-5.1); Sodium 133 mmol/L (136-145)
== END ==
PROVIDERS: Urology; Visit Provider Internal Medicine
DX: E78.5 Hyperlipidemia, unspecified (principal); F41.9 Anxiety disorder, unspecified; I10 Essential (primary) hypertension; I25.10 Atherosclerotic heart disease of native coronary artery without angina pectoris; I42.9 Cardiomyopathy, unspecified; R06.00 Dyspnea, unspecified; R09.89 Other specified symptoms and signs involving the circulatory and respiratory systems; R94.31 Abnormal electrocardiogram [ECG] [EKG]; Z95.1 Presence of aortocoronary bypass graft
CPT/HCPCS: 36415; 80048

== ENCOUNTER → 2021-06-18 10:38 | Outpatient (CLI) | payer MEDICARE, BC, SELFPAY ==
[2021-06-18 12:17] LABS: Chloride 97 mmol/L (98-107); Potassium 4.9 mmoL/L (3.5-5.1); Sodium 133 mmol/L (136-145)
[2021-06-18 12:20] LABS: Blood Urea Nitrogen 8 mg/dl (9-20); Estimated Glomerular Filt Rate 93 ml/min (>60); GFR (African American) 112 ML/MIN (>60)
[2021-06-18 12:21] LABS: Anion Gap 13.9 mEq/L (5-15); Calcium 9.1 mg/dl (8.4-10.2); Carbon Dioxide 27 mmol/L (22.0-30.0); Glucose 119 mg/dl (74-100)
== END ==
PROVIDERS: Visit Provider Internal Medicine
DX: E78.5 Hyperlipidemia, unspecified (principal); F41.9 Anxiety disorder, unspecified; I10 Essential (primary) hypertension; I25.10 Atherosclerotic heart disease of native coronary artery without angina pectoris; I42.9 Cardiomyopathy, unspecified; R06.00 Dyspnea, unspecified; R09.89 Other specified symptoms and signs involving the circulatory and respiratory systems; R94.31 Abnormal electrocardiogram [ECG] [EKG]; Z95.1 Presence of aortocoronary bypass graft
CPT/HCPCS: 36415; 80048

== ENCOUNTER → 2021-10-22 07:48 | Outpatient (CLI) | payer MEDICARE, BC, SELFPAY ==
--- NOTE | 2021-10-22 | CA_ITS ---
APPROVED REPORT Exam: Pharmacologic Technologist: Zayda Poon Ht: 5 ft 8 in Wt: 235 lbs BSA: 2.19 m2 HR: 58 bpm BP: 150/76 mmHg Indications: Shortness of Breath Medical History Medications: Amlodipine,,,,, Omeprazole,,,,, Alprazolam,,,,, Levothyroxine,,,,, Aspirin,,,,, Gabapentin,,,,, Vitamin C,,,,, Vitamin D3,,,,, Losartan,,,,, Carvedilol,,,,, TAMSULOSIN,,,,, Sucralfate,,,,, Stress Test Details Test: LEXISCAN HR Resting HR: 60 bpm Max Heart Rate (APMHR): 139.434302 bpm Max HR Achieved: 84 bpm Target HR (85% APMHR): 118.070709 bpm % of APMHR: 60.43 Recovery HR: 58 bpm BP Resting BP: 150.0/76.0 mmHg Max BP: 150.0/76.0 mmHg Recovery BP: 139.0/69.0 mmHg ECG Resting ECG: Sinus bradycardia, first degree AV block, Poor R wave progression Clinical Exercise duration: 04:07 min Highest Stage Achieved: Stress ECG Conclusion Symptoms: Shortness of air, headache. No chest pain Arrhythmias/Ectopy: None ST-T Changes: No significant changes. Conclusion: Unremarkable Lexiscan stress. Myoview images reported separately. Test Summary REST . . . . . . . Resting REST 03:57 . . 60 . 150/ 76 . . Stage 1 . . . . . . . Myoview Injected Stage 1 01:00 . . 78 . . . . Stage 2 01:00 . . 83 . 144/ 72 . . Stage 3 01:00 . . 75 . 149/ 77 . . Stage 4 01:00 . . 76 . . . . Stage 4 01:07 . . 74 . 145/ 77 . Stop exercise at 04:07 RECOVERY 01:00 . . 71 . 132/ 71 . . RECOVERY 02:00 . . 68 . 132/ 71 . . RECOVERY 03:00 . . 67 . 139/ 69 . . RECOVERY 03:16 . . 66 . 139/ 69 . . Electronically signed by : To Ramirez MD 10/22/2021 19:52:36
--- NOTE | 2021-10-22 07:54 | NM_ITS ---
APPROVED REPORT Exam: Nuclear Stress Test Indication: SOB, CAD, CABG, HTN, High cholesterol, Family history Patient Location: Outpatient Stress Tech: Zayda Poon MD Tech:Anita Little, ARRT, RT (R)(N) Ht: 5 ft 8 in Wt: 230 lbs HR: 60 bpm BP: 150/76 mmHg BSA: 2.17 m2 BMI: 34.9 History: SOB, CAD, CABG, HTN, High cholesterol, Family history Procedure: Patient received a 0.4 mg of intravenous Lexiscan, resting heart rate 60 bpm, resting blood pressure 150/76 mmHg, with Lexiscan maximum heart rate achived was 84 bpm which is Less than 85 % of the maximum predicted heart rate and blood pressure was 150/76 mmHg. With Lexiscan, patient denied any complaint of chest pain. Electrocardiogram Resting electrocardiogram shows sinus rhythm, with Lexiscan there is less than 1.[address] segment depression noted from the baseline EKG. The EKG portion of the Lexiscan is nondiagnostic. Cardiac Stress and Resting SPECT Images: Cardiac Stress and Resting SPECT images were obtained using technetium 99m Myoview 31.1 mCi stress and 10.07 mCi at rest. Gated SPECT for analysis of segmental wall motion and calculation of the ejection fraction also done. Prone images were also obtained. Cardiac stress and resting SPECT images show uniform myocardial activity without segmental perfusion abnormality, computer derived ejection fraction is 46% with no regional wall motion abnormality, right ventricle is normal size and contractility. Conclusion: 1. The EKG portion of the Lexiscan is nondiagnostic. 2. No scintigraphic evidence of reversible ischemia seen, computer derived ejection fraction is 46% with no regional wall motion abnormality, right ventricle is normal size and contractility. 3. Normal Lexiscan Myoview study. Electronically signed by : To Ramirez MD 10/22/2021 20:05:37
--- NOTE | 2021-10-22 09:47 | HMH.ITSHM ---
Current Home Medications as stated by this patient Manuel Sarmiento or loss prevention representative. []VENLAFAXINE TAMSULOSIN SUCRALFATE POTASSIUM OMEPRAZOLE MELATONIN LOSARTAN LEVOTHYROXINE GABAPENTIN CLOPIDOGREL CARVEDILOL ASA AMLODIPINE ALPRAZOLAM ALIROCUMAB VITAMIN D3 VITAMIN C
== END ==
PROVIDERS: PCP Family Medicine; Visit Provider Physician Assistant
DX: E78.2 Mixed hyperlipidemia (principal); I10 Essential (primary) hypertension; I25.10 Atherosclerotic heart disease of native coronary artery without angina pectoris; I42.8 Other cardiomyopathies; R06.00 Dyspnea, unspecified; Z95.1 Presence of aortocoronary bypass graft; Z95.5 Presence of coronary angioplasty implant and graft
CPT/HCPCS: 78452; 93017; A9502; J2785

== ENCOUNTER → 2021-10-28 11:41 | Outpatient (CLI) | payer MEDICARE, BC, SELFPAY | PROVIDERS: PCP Family Medicine; Visit Provider Specialist | DX: R06.00 Dyspnea, unspecified (principal) | CPT/HCPCS: 94762 ==

== ENCOUNTER → 2021-12-13 11:17 | Outpatient (CLI) | payer MEDICARE, BC, SELFPAY | PROVIDERS: PCP Family Medicine; Visit Provider Internal Medicine Gastroenterology | DX: Z01.812 Encounter for preprocedural laboratory examination (principal); Z11.52 Encounter for screening for COVID-19 | CPT/HCPCS: C9803; U0003; U0005 ==

== ENCOUNTER → 2021-12-26 12:44 | Outpatient (POV) | payer MEDICARE, BC, SELFPAY ==
[2021-12-26 12:55] VITALS: BP 160/82; PULSE 68; RESP 20; O2SAT 97; BMI 35.1
--- NOTE | 2021-12-26 13:06 | HMH.PMCON ---
Assessment and Plan (1) Osteoarthritis of left shoulder Status: Acute Category: Medical Code(s): M19.012 - Primary osteoarthritis, left shoulder - Assessment and plan all Dx Assessment and Plan for all problems:: Patient has been having worsening left shoulder pain for several years now. He has had multiple intra-articular joint injections with minimal relief. He does not want to move forward with any surgical intervention at this time. He was being managed with [facility] in the past but he had significant side effects from it. He now takes ibuprofen as needed. We will schedule the patient for a left suprascapular nerve block. Risks and benefits of the procedure have been explained to the patient. Patient would like to proceed with the procedure. I will also start the patient on a compounding cream to help with his left shoulder pain. Patient has been instructed to contact the clinic with any concerns before the next appointment. Dr. Belle has reviewed this note and agrees with this plan of care. This note was dictated using voice recognition software and make contain errors or omissions. HPI - Data of Consult Patient: new to practice Consult date: 12/26/21 Requesting Physician: KAITLIN Solorzano - Consult Narrative Reason for consult: Left shoulder pain History of present illness: Mr. Sarmiento is a 81 year old male who presents today as a new patient. Patient is referred by Dr. Whitehead. Thank you for the referral. Patient presents today with chronic left shoulder pain. He was told that he has arthritis in his left shoulder. Patient states that he has been having issues with his left shoulder for several years now. He was told that he needed left shoulder replacement but has decided to opt out for any surgical intervention at this time. Patient has had multiple intra-articular joint injections primary relief of symptoms. He also has tried physical therapy with minimal relief. He has tried oral medications such as hydrocodone with some relief of symptoms. However, patient states that he was having side effects from this medication. He now takes ibuprofen as needed. Patient states that it has been difficult living with his left shoulder pain. He has not been able to use his left arm with his groceries. He rates his pain today as 8 out of 10. Denies any recent falls or traumas. Denies any loss of bowel or bladder functions. CC: KAITLIN Solorzano [facility] History I have reviewed the patient's past medical history: Yes Medical History: Reports:: Anxiety, Atherosclerotic Heart Disease, Cardiomyopathy, Congestive Heart Failure, Congenital Heart Disease, Coronary Artery Disease, Depression, Gastroesophageal Reflux Disease(GERD), Hyperlipidemia, Hypertension, Urinary Tract Infection Denies:: Cancer, Diabetes Mellitus Type 1, Diabetes Mellitus Type 2, Internal Pacemaker, Lung Disease, MRSA, Seizures *Have you ever received a pneumonia vaccine?: Yes *Have you received a flu vaccine this season?: Yes Other Medical History: Reports: Arthritis, Blood Transfusion Reaction, Hypothyroidism, Sinus Problems, Other Laterality Cases: Left: Total Knee Replacement, Bilateral: Tonsillectomy, Total Hip Replacement Other Surgeries: Yes: No Previous Surgery, CABG (1999), Cardiac Catheterization (2016), Cardiac Surgery, Cholecystectomy, Colonoscopy, Coronary Stent, EGD, Open Heart Surgery, Sinus Surgery, Other (Rhinoplasty, tonsillectomy,prostate). No: Pacemaker Amputation: No Fractures: No - *Social History Smoking Status: Never smoker #Yrs smoked (if former smoker): 25 Alcohol Intake: never Alcohol Intake Frequency:: other Substance Use Type: denies use *Occupational Status:: retired Housing: house Household Members: spouse *Travel in the last 8 weeks: None - Psychiatric History Pschychiatric History:: Reports:: Anxiety, Depression Family Hx:: Cancer, Hypertension, Coronary Artery Disease, Thyroid Disorder Review of Systems - Review of Systems
== END ==
PROVIDERS: Visit Provider Student in an Organized Health Care Education/Training Program
DX: M19.012 Primary osteoarthritis, left shoulder (principal)
CPT/HCPCS: 99202; G0463

== ENCOUNTER 2022-01-03 09:39 | Day surgery (SDC) | payer MEDICARE, BC, SELFPAY ==
[2022-01-03 10:00] VITALS: BP 135/77; PULSE 58; RESP 16; TEMP 36.4; O2SAT 99; BMI 34.9
[2022-01-03 10:12] VITALS: RESP 20; O2SAT 96
[2022-01-03 10:13] VITALS: BP 139/76; PULSE 55; RESP 20
[2022-01-03 10:23] VITALS: BP 139/76; PULSE 55; RESP 18; O2SAT 97
--- NOTE | 2022-01-03 10:24 | HMH.PMPROC ---
- Procedure Date: 01/03/22 Time: 10:24 Anesthesiologist:: Shai Liu CRNA Complications:: None Pre-procedure Diagnosis:: left Shoulder osteoarthritis Post-procedure Diagnosis:: Same Indications for Procedure:: This patient is a very pleasant 81-year-old white male that presents to our injection clinic today for left suprascapular nerve block. Severe osteoarthritis of the left shoulder joint. He has responded well to the same injection in the past. Patient not really a candidate for shoulder replacement due to age and health. Procedure Details:: Details of the procedure were explained to the patient. Patient was placed in the sitting position. The area over the left suprascapular region was cleaned using chlorhexidine as a cleansing solution. Using a 25-gauge needle the block was performed at the suprascapular border in a fanning fashion. This was 0.25% Marcaine +1% lidocaine and 40 mg of Depo-Medrol. 10 cc was used. The block was performed without incident. Plan and Disposition:: Patient was reevaluated 10 minutes post procedure. He reports significant provement terms of his left shoulder pain during range of motion.
== END 2022-01-03 10:24 | disposition home or self-care (01) ==
LOC: SC.PAINP 09:40
PROVIDERS: PCP Family Medicine; Visit Provider Nurse Anesthetist, Certified Registered
DX: M19.012 Primary osteoarthritis, left shoulder (principal); I25.10 Atherosclerotic heart disease of native coronary artery without angina pectoris; I42.9 Cardiomyopathy, unspecified; F41.9 Anxiety disorder, unspecified; F32.A Depression, unspecified; K21.9 Gastro-esophageal reflux disease without esophagitis; E78.5 Hyperlipidemia, unspecified; I10 Essential (primary) hypertension; M19.90 Unspecified osteoarthritis, unspecified site
CPT/HCPCS: 20610; J1040

== ENCOUNTER → 2022-01-24 09:18 | Outpatient (CLI) | payer MEDICARE, BC, SELFPAY ==
[2022-01-24 10:04] LABS: Basophils # 0.1 K/mm3 (0-0.2); Basophils % 1.1 % (0.1-2.0); Eosinophils # 0.3 K/mm3 (0.0-0.4); Eosinophils % 4.9 % (0.1-12.0); Hematocrit 40.5 % (42.0-52.0); Hemoglobin 13.7 g/dL (14.1-18.0); Lymphocytes # 0.8 K/mm3 (0.7-4.5); Lymphocytes % 13.5 % (10-50); Mean Corpuscular HGB Conc 33.9 g/dL (31.8-35.4); Mean Corpuscular Hemoglobin 32.6 pg (27.0-31.2); Mean Corpuscular Volume 96.3 fl (80-94); Mean Platelet Volume 7.3 fl (7.4-10.4); Monocytes # 0.5 K/mm3 (0.1-1.0); Monocytes % 7.9 % (1.7-9.3); Neutrophils # 4.5 K/mm3 (1.8-7.8); Neutrophils % 72.7 % (37.0-80.0); Platelet Count 200 K/mm3 (142-424); Red Blood Count 4.21 M/mm3 (4.60-6.20); Red Cell Distribution Width 13.5 % (11.5-17.5); White Blood Count 6.2 K/mm3 (4.8-10.8)
[2022-01-24 10:26] LABS: Chloride 94 mmol/L (98-107); Sodium 130 mmol/L (136-145)
[2022-01-24 10:27] LABS: Potassium 4.7 mmoL/L (3.5-5.1)
[2022-01-24 10:29] LABS: Alanine Aminotransferase 22 U/L (12-78); Albumin Level 3.9 g/dl (3.5-5.0); Albumin/Globulin Ratio 1.9 (1.1-1.8); Alkaline Phosphatase 87 U/L (38-126); Anion Gap 12.7 mEq/L (5-15); Aspartate Amino Transferase 27 U/L (17-59); Bilirubin,Total 0.6 mg/dl (0.2-1.3); Blood Urea Nitrogen 10 mg/dl (9-20); Carbon Dioxide 28 mmol/L (22.0-30.0); Estimated Glomerular Filt Rate 93 ml/min (>60); GFR (African American) 112 ML/MIN (>60); Globulin 2.1 g/dL (1.3-3.2)
[2022-01-24 10:30] LABS: Calcium 9.7 mg/dl (8.4-10.2); Glucose 96 mg/dl (74-100)
[2022-01-24 11:06] LABS: Ferritin 43.4 ng/ml (17.9-464)
== END ==
PROVIDERS: Visit Provider Specialist
DX: M25.511 Pain in right shoulder (principal); M25.512 Pain in left shoulder; G47.33 Obstructive sleep apnea (adult) (pediatric); G62.9 Polyneuropathy, unspecified
CPT/HCPCS: 36415; 80053; 82728; 85025

== ENCOUNTER → 2022-02-06 14:08 | Outpatient (POV) | payer MEDICARE, BC, SELFPAY ==
[2022-02-06 14:31] VITALS: BP 157/77; PULSE 64; RESP 18; TEMP 36.7; O2SAT 97; BMI 34.9
--- NOTE | 2022-02-06 15:27 | HMH.PAINSOAP ---
[facility] Pain Management SOAP Note Subjective:: Patient is a pleasant 81-year-old male who presents today for follow-up after a left suprascapular nerve block on January 03, 2022. Patient is currently being treated for osteoarthritis of the left shoulder. After your procedure, patient had significant relief for 1 to 2 days. Denies any issues after the injection. After the 2 days, he states that his pain is back and he has been having issues with his ADLs. Rates his pain a 7 out of 10. Patient was told that he would need left shoulder surgery however he has a significant cardiovascular history. He has had 5 stents, 5 bypasses. He is currently on Plavix. He was told that he would need to be off of his blood thinner for 3 weeks for his shoulder surgery. Due to his age and comorbidities, he was advised not to pursue surgical interventions. For pain, he has been taken regular strength Tylenol and has been using the compounding cream that we started him on. He states that these are somewhat helping his pain. His pain is worse typically at night. Review of Systems: General: No recent weight changes, no fever, no sleep disturbances Respiratory: No cough, no shortness of air, no recurring pulmonary infections Cardiovascular/peripheral vascular: No chest pain, no palpitations, no edema, no shortness of breath Gastrointestinal: No new onset incontinence, normal bowel movements reported Genitourinary: No new onset incontinence Musculoskeletal: Left shoulder pain Psychiatric: [Normal mood/affect] Neurological: [Denies weakness in extremities], [denies balance issues] Objective:: Physical Exam: General: Alert and oriented x3, no acute distress, pleasant and cooperative Lungs: Respirations even and unlabored, symmetrical chest expansion Eyes: PERRL Musculoskeletal: Limited range of motion of the left shoulder secondary to pain. Patient is unable to laterally abduct his left shoulder past 60 degrees. Neurological: Speech clear, no gross sensory deficit Assessment:: Osteoarthritis of the left shoulder Plan:: Patient has significant relief for 1 to 3 days after the left suprascapular nerve block. We will schedule the patient for a repeat suprascapular nerve block. I advised the patient to take Tylenol arthritis to see if this would help some of his pain. I will also start the patient on tramadol 50 mg at nighttime. Follow-up after the injection. Patient has been instructed to contact the clinic with any concerns before the next appointment. Dr. Belle has reviewed this note and agrees with this plan of care. This note was dictated using voice recognition software and make contain errors or omissions. [facility] History Medical History: Reports:: Anxiety, Atherosclerotic Heart Disease, Cardiomyopathy, Congestive Heart Failure, Congenital Heart Disease, Coronary Artery Disease, Depression, Gastroesophageal Reflux Disease(GERD), Hyperlipidemia, Hypertension, Urinary Tract Infection Denies:: Cancer, Diabetes Mellitus Type 1, Diabetes Mellitus Type 2, Internal Pacemaker, Lung Disease, MRSA, Seizures *Have you ever received a pneumonia vaccine?: Yes *Have you received a flu vaccine this season?: Yes Other Medical History: Reports: Arthritis, Blood Transfusion Reaction, Hypothyroidism, Sinus Problems, Other Laterality Cases: Left: Arthroscopy Knee, Bilateral: Tonsillectomy, Total Hip Replacement Other Surgeries: Yes: No Previous Surgery, CABG, Cardiac Catheterization, Cardiac Surgery, Cholecystectomy, Colonoscopy, Coronary Stent, EGD, Open Heart Surgery, Sinus Surgery, Other (Rhinoplasty, tonsillectomy,prostate). No: Pacemaker Amputation: No Fractures: No - *Social History Smoking Status: Never smoker #Yrs smoked (if former smoker): 25 Alcohol Intake: never Alcohol Intake Frequency:: other Substance Use Type: denies use *Occupational Status:: retired Housing: house Household Members: spouse *Travel in the last 8 weeks: None - Psychiatric History Pschyc
== END ==
PROVIDERS: Visit Provider Student in an Organized Health Care Education/Training Program
DX: M19.012 Primary osteoarthritis, left shoulder (principal)
CPT/HCPCS: 99212; G0463

== ENCOUNTER → 2022-02-12 15:23 | Outpatient (CLI) | payer MEDICARE, BC, SELFPAY ==
[2022-02-12 19:18] LABS: Vitamin B12 669 pg/mL (239-931)
[2022-02-12 19:44] LABS: Folate > 20.00 ng/mL
== END ==
PROVIDERS: PCP Family Medicine; Visit Provider Specialist
DX: G25.81 Restless legs syndrome (principal); G62.9 Polyneuropathy, unspecified
CPT/HCPCS: 36415; 82607; 82746

== ENCOUNTER 2022-02-21 11:26 | Day surgery (SDC) | payer MEDICARE, BC, SELFPAY ==
[2022-02-21 11:20] VITALS: BP 131/81; PULSE 60; RESP 20; O2SAT 97; BMI 34.9
[2022-02-21 11:56] VITALS: BP 131/81; BP 159/75; PULSE 60; PULSE 62; RESP 18; TEMP 36.4; O2SAT 97; O2SAT 98
[2022-02-21 12:00] VITALS: BP 131/81; PULSE 60; RESP 20; O2SAT 97
--- NOTE | 2022-02-21 12:05 | HMH.PMPROC ---
- Procedure Date: 02/21/22 Time: 12:05 Anesthesiologist:: Santana Belle MD Complications:: None Pre-procedure Diagnosis:: Left shoulder pain with degenerative osteoarthritis chronic Post-procedure Diagnosis:: Same Indications for Procedure:: Patient is a pleasant 81-year-old white male who we are treating for left shoulder pain. He had a left suprascapular nerve block in December this did help significantly. Pain is now starting to return. He presents for repeat left suprascapular nerve block and intra-articular shoulder injection today. Procedure Details:: Left intra-articular shoulder injection and suprascapular nerve block Informed consent was obtained the risk and benefits of the procedure were explained to the patient. Patient was taken the procedure room. Left shoulder was prepped using ChloraPrep. 25-gauge needle was used to inject 10 mL bupivacaine 0.25% and Depo-Medrol 40 mg into the left shoulder joint and into the area of the left suprascapular nerve. Patient tolerated the procedure well with no complications. Plan and Disposition:: We will follow-up with this patient in 2 weeks. Will reevaluate symptoms at that time.
== END 2022-02-21 12:00 | disposition home or self-care (01) ==
LOC: SC.PAINP 11:28
PROVIDERS: PCP Family Medicine; Visit Provider Anesthesiology
DX: M25.512 Pain in left shoulder (principal); M19.90 Unspecified osteoarthritis, unspecified site; I11.0 Hypertensive heart disease with heart failure; I50.9 Heart failure, unspecified; I25.10 Atherosclerotic heart disease of native coronary artery without angina pectoris; E78.5 Hyperlipidemia, unspecified; I42.9 Cardiomyopathy, unspecified; F41.9 Anxiety disorder, unspecified; K21.9 Gastro-esophageal reflux disease without esophagitis; E03.9 Hypothyroidism, unspecified; I65.29 Occlusion and stenosis of unspecified carotid artery
CPT/HCPCS: 64418; J1040

== ENCOUNTER → 2022-03-13 13:06 | Outpatient (POV) | payer MEDICARE, BC, SELFPAY ==
[2022-03-13 13:11] VITALS: BP 180/70; PULSE 76; RESP 20; O2SAT 98; BMI 34.7
--- NOTE | 2022-03-13 14:22 | HMH.PAINSOAP ---
[facility] Pain Management SOAP Note Subjective:: Patient is a pleasant 81-year-old male who presents today for follow-up after a left suprascapular nerve block and left intra-articular shoulder injection on February 21, 2022. Patient is currently being treated for osteoarthritis of the left shoulder. After this procedure, patient had significant relief for several days. He states that his constant pain becomes a little bit more tolerable. He does state that he still has pain at night. He has been using the compounding cream and been taking the tramadol to help with his shoulder pain. He states that he feels like the cream and the tramadol are helping the most for his pain. Patient has seen ortho who deemed him a surgical candidate for the left shoulder however, patient has a significant cardiovascular history. He had 5 stents and 5 bypasses. He is currently on Plavix. Due to his age and comorbidities, he was advised not to pursue any surgical interventions. He rates his pain today as 6 out of 10. Review of Systems: General: No recent weight changes, no fever, no sleep disturbances Respiratory: No cough, no shortness of air, no recurring pulmonary infections Cardiovascular/peripheral vascular: No chest pain, no palpitations, no edema, no shortness of breath Gastrointestinal: No new onset incontinence, normal bowel movements reported Genitourinary: No new onset incontinence Musculoskeletal: Improving left shoulder pain Psychiatric: [Normal mood/affect] Neurological: [Denies weakness in extremities], [denies balance issues] Objective:: Physical Exam: General: Alert and oriented x3, no acute distress, pleasant and cooperative Lungs: Respirations even and unlabored, symmetrical chest expansion Eyes: PERRL Musculoskeletal: Limited range of motion of the left shoulder secondary to pain Neurological: Speech clear, no gross sensory deficit Assessment:: Osteoarthritis of the left shoulder Plan:: Patient had significant relief for about a week after the left suprascapular nerve block and left intra-articular injections. He is not back to baseline yet with his pain but he states that the medication seems to start wearing off. He does use his compounding cream and takes his tramadol as needed. He states that these 2 are helping his left shoulder pain the most. We will increase his tramadol to tramadol 50 mg twice a day. We will provide the patient with 1 month worth of refill. In regards to his injection, we will consider doing any repeat injection in April. For long-term relief, patient might benefit from SCS therapy for his left shoulder. Patient has been instructed to contact the clinic with any concerns before the next appointment. Dr. Belle has reviewed this note and agrees with this plan of care. This note was dictated using voice recognition software and make contain errors or omissions. [facility] History Medical History: Reports:: Anxiety, Atherosclerotic Heart Disease, Cardiomyopathy, Carotid Stenosis, Congestive Heart Failure, Congenital Heart Disease, Coronary Artery Disease, Depression, Gastroesophageal Reflux Disease(GERD), Hyperlipidemia, Hypertension, Urinary Tract Infection Denies:: Cancer, Diabetes Mellitus Type 1, Diabetes Mellitus Type 2, Internal Pacemaker, Lung Disease, MRSA, Seizures *Have you ever received a pneumonia vaccine?: Yes *Have you received a flu vaccine this season?: Yes Other Medical History: Reports: Arthritis, Blood Transfusion Reaction, Hypothyroidism, Sinus Problems, Other Laterality Cases: Left: Arthroscopy Knee, Bilateral: Tonsillectomy, Total Hip Replacement Other Surgeries: Yes: No Previous Surgery, CABG, Cardiac Catheterization, Cardiac Surgery, Cholecystectomy, Colonoscopy, Coronary Stent, EGD, Open Heart Surgery, Sinus Surgery, Other (Rhinoplasty, tonsillectomy,prostate). No: Pacemaker Amputation: No Fractures: No - *Social History Smoking Status: Former smoker #Yrs smoked (if former smoker): 25 Alcohol Intake:
== END ==
PROVIDERS: Visit Provider Student in an Organized Health Care Education/Training Program
DX: M19.012 Primary osteoarthritis, left shoulder (principal)
CPT/HCPCS: 99212; G0463

== ENCOUNTER → 2022-08-26 14:45 | Outpatient (CLI) | payer MEDICARE, BC, SELFPAY ==
[2022-08-26 19:39] LABS: Alanine Aminotransferase 18 U/L (12-78); Albumin Level 4.3 g/dl (3.5-5.0); Alkaline Phosphatase 106 U/L (38-126); Anion Gap 13.1 mEq/L (5-15); Aspartate Amino Transferase 26 U/L (17-59); Bilirubin,Total 0.2 mg/dl (0.2-1.3); Blood Urea Nitrogen 8 mg/dl (9-20); Calcium 9.7 mg/dl (8.4-10.2); Carbon Dioxide 29 mmol/L (22.0-30.0); Chloride 97 mmol/L (98-107); Estimated Glomerular Filt Rate 64 ml/min (>60); GFR (African American) 78 ML/MIN (>60); Globulin 2.2 g/dL (1.3-3.2); Glucose 86 mg/dl (74-100); Potassium 5.1 mmoL/L (3.5-5.1); Sodium 134 mmol/L (136-145); Total Protein,Serum 6.5 g/dl (6.3-8.2)
== END ==
PROVIDERS: PCP Family Medicine; Visit Provider Family Medicine
DX: R10.32 Left lower quadrant pain (principal)
CPT/HCPCS: 36415; 80053

== ENCOUNTER → 2022-08-27 08:37 | Outpatient (CLI) | payer MEDICARE, BC, SELFPAY ==
--- NOTE | 2022-08-27 08:41 | CT_ITS ---
FINAL REPORT TECHNIQUE: Axial CT images of the abdomen and pelvis were obtained before and after the administration of IV contrast. This study was performed with techniques to keep radiation doses as low as reasonably achievable (ALARA). Individualized dose reduction techniques using automated exposure control or adjustment of mA and/or kV according to the patient''s size were employed. CLINICAL HISTORY: LEFT LOWER QUAD PAIN FINDINGS: Abdomen: Motion artifact is identified on some of the images. There is bibasilar atelectasis or scar. The heart is normal in size. There are 2, less than 1 cm hepatic cysts. The patient is status post cholecystectomy. There is moderate vascular calcification. The spleen is unremarkable. No adrenal masses present. The pancreas has an unremarkable appearance. There is an 8 mm mass in the anterior left lower lobe of the left kidney, favor a small cyst. The aorta is normal in caliber. There is no free fluid or adenopathy. Precontrast images demonstrate no evidence of nephrolithiasis. Pelvis: The appendix is unremarkable. There is descending and sigmoid diverticulosis without evidence of diverticulitis. Bilateral hip arthroplasties are seen with streak artifact. There is a left inguinal hernia containing fat. There are postoperative changes the left sacroiliac joint. The urinary bladder is unremarkable. No inflammatory process is seen. There is no evidence of mass or adenopathy. There is no evidence of bowel obstruction. IMPRESSION: Left inguinal hernia containing fat. Descending and sigmoid diverticulosis without evidence of diverticulitis. Hepatic and renal cysts. Reviewed, Interpreted and Dictated by Keegan Pascual III, MD Transcribed by Shireen Hernandez Authenticated and [facility]
== END ==
PROVIDERS: PCP Specialist; Visit Provider Family Medicine
DX: R10.32 Left lower quadrant pain (principal)
CPT/HCPCS: 74178; Q9967

== ENCOUNTER → 2022-11-04 13:53 | Outpatient (CLI) | payer MEDICARE, BC, SELFPAY ==
[2022-11-04 14:00] LABS: MANUAL DIFFERENTIAL MANUAL DIFFERENTIAL (MANUAL DIFF)
[2022-11-04 14:24] LABS: Basophils # 0.1 K/mm3 (0-0.2); Basophils % 0.7 % (0.1-2.0); Eosinophils # 0.4 K/mm3 (0.0-0.4); Eosinophils % 4.9 % (0.1-12.0); Hematocrit 42.8 % (42.0-52.0); Hemoglobin 14.5 g/dL (14.1-18.0); Lymphocytes % 13.7 % (10-50); Mean Corpuscular HGB Conc 33.8 g/dL (31.8-35.4); Mean Corpuscular Hemoglobin 32.1 pg (27.0-31.2); Mean Platelet Volume 7.4 fl (7.4-10.4); Monocytes # 0.5 K/mm3 (0.1-1.0); Monocytes % 6.7 % (1.7-9.3); Neutrophils # 5.6 K/mm3 (1.8-7.8); Neutrophils % 74.1 % (37.0-80.0); Platelet Count 232 K/mm3 (142-424); Red Blood Count 4.51 M/mm3 (4.60-6.20); White Blood Count 7.6 K/mm3 (4.8-10.8)
[2022-11-04 14:33] LABS: Lymphocytes % 8 % (10-50); Monocytes % 6 % (2-9); Neutrophils % 86 % (42-76); Platelet Estimate Normal; RBC Morphology Normal; Total Cells Counted 100
[2022-11-04 17:33] LABS: Iron 97 ug/dL (49-181)
[2022-11-04 17:54] LABS: Total Iron Binding Capacity 114 ug/dL (261-462)
[2022-11-04 18:40] LABS: Vitamin B12 712 pg/mL (239-931)
[2022-11-04 18:42] LABS: Folate > 20.00 ng/mL
[2022-11-05 07:40] LABS: Ferritin 49.1 ng/ml (17.9-464)
== END ==
PROVIDERS: PCP Family Medicine; Visit Provider Specialist
DX: I42.8 Other cardiomyopathies (principal); D75.89 Other specified diseases of blood and blood-forming organs; R25.2 Cramp and spasm
CPT/HCPCS: 36415; 82607; 82728; 82746; 83540; 83550; 83735; 85007; 85014; 85018; 85048; 85049

== ENCOUNTER 2023-03-08 11:52 | Emergency (ER) | payer MEDICARE, BC, SELFPAY ==
[2023-03-08 11:53] VITALS: BP 122/67; PULSE 65; RESP 18; TEMP 36.8; O2SAT 96; BMI 34.9
--- NOTE | 2023-03-08 12:22 | EXP.UTC ---
Discharge Plan Disposition Patient Disposition: Home, Self-Care Condition: Good Prescriptions Prescriptions: New azithromycin [Zithromax] 250 mg tablet 250 mg PO UD DOSE PK Qty: 6 0RF Rx Instructions: Take two (2) tablets today, then one (1) tablet days #2 thru #5 benzonatate [benzonatate] 100 mg capsule 100 mg PO TIDP PRN (Reason: Cough) Qty: 30 0RF methylprednisolone 4 mg Tablets,Dose Pack 4 mg PO DIRECTED Qty: 21 0RF No Action acetaminophen [Tylenol Extra Strength] 500 mg tablet 500 mg PO Q6H PRN (Reason: pain) melatonin 5 mg capsule 10 mg PO .COMPLEX Rx Instructions: 10 mg orally HS; multivitamin Tablet 1 tab PO DAILY polyethylene glycol 3350 [Miralax] 17 gram/dose powder 17 g PO DAILY magnesium oxide 500 mg capsule 500 mg PO DAILY Metamucil 3.4 gram/5.4 gram powder 1 tbsp PO DAILY Rx Instructions: mix into at least 8 oz of water or juice before administering gabapentin 400 mg capsule 400 mg PO TID isosorbide mononitrate 30 mg tablet extended release 24 hr 30 mg PO DAILY Qty: 30 3RF nitroglycerin 0.4 mg tablet, sublingual 0.4 mg sublingual Q5M PRN (Reason: chest pain) Qty: 25 0RF Rx Instructions: do not exceed 3 doses per episode venlafaxine 75 mg capsule,extended release 24hr 75 mg PO DAILY 30 Days Qty: 30 Label Comments: levothyroxine 88 mcg tablet 88 mcg PO DAILY 30 Days Qty: 30 Label Comments: alprazolam 0.25 mg tablet 0.25 mg PO TIDP PRN (Reason: Anxiety) 30 Days Qty: 90 aspirin [Adult Low Dose Aspirin] 81 mg tablet,delayed release (DR/EC) 81 mg PO DAILY tamsulosin 0.4 mg capsule 0.4 mg PO DAILY carvedilol 3.125 mg tablet See Rx Instructions .ROUTE .COMPLEX Qty: 180 5RF Dose Instruction: TAKE 1 TABLET BY MOUTH TWICE DAILY Rx Instructions: TAKE 1 TABLET BY MOUTH TWICE DAILY losartan 100 mg tablet See Rx Instructions .ROUTE .COMPLEX Qty: 90 5RF Dose Instruction: TAKE 1 TABLET BY MOUTH ONCE DAILY FOR BLOOD PRESSURE Rx Instructions: TAKE 1 TABLET BY MOUTH ONCE DAILY FOR BLOOD PRESSURE amlodipine 5 mg tablet See Rx Instructions .Route .COMPLEX Qty: 90 3RF Rx Instructions: TAKE 1 TABLET BY MOUTH ONCE DAILY potassium chloride 8 mEq tablet extended release 8 meq PO DAILY Qty: 30 5RF clopidogrel 75 mg tablet See Rx Instructions .ROUTE .COMPLEX Qty: 90 3RF Dose Instruction: TAKE ONE TABLET BY MOUTH EVERY DAY Rx Instructions: TAKE ONE TABLET BY MOUTH EVERY DAY pantoprazole 40 mg tablet,delayed release (DR/EC) 40 mg PO DAILY Qty: 90 3RF Praluent Pen 150 mg/mL pen injector See Rx Instructions .ROUTE .COMPLEX Qty: 2 3RF Dose Instruction: INJECT 1 ML UNDER THE SKIN EVERY 2 WEEKS INTO ABDOMEN, THIGH, OR UPPER ARM ROTATE Rx Instructions: INJECT 1 ML UNDER THE SKIN EVERY 2 WEEKS INTO ABDOMEN, THIGH, OR UPPER ARM ROTATE turmeric 400 MG capsule 400 mg PO DAILY garlic 500 MG tablet 2,000 mg PO DAILY coenzyme Q10 200 MG capsule 200 mg PO DAILY vitamin D3-vitamin K2 (MK4) 1 EACH tablet 1 each PO DAILY omega-3 fatty acids 300 MG capsule 600 mg PO DAILY L.acidoph, paracasei,B. lactis 1 EACH capsule 1 each PO DAILY ascorbic acid (vitamin C) 1,000 MG tablet 1,000 mg PO DAILY Referrals Follow up/Referrals: Juliocesar Whitehead MD [Primary Care Provider] - See instructions Activity Restrictions/Add. Instructions Additional Instructions/Restrictions: Drink plenty of fluids. Take tylenol or ibuprofen for pain or fever. Take the medications as directed. Follow up with your regular doctor. GO TO THE ER FOR ANY WORSENING SYMPTOMS Don't start the oral steroids until tomorrow, since you had the shot here today. Clinical Impressions Clinical Impression: Sinusitis Instructions Patient Instructions: Sinusitis,
[2023-03-08 13:03] VITALS: BP 122/67; PULSE 65; RESP 18; TEMP 36.8; O2SAT 96
== END 2023-03-08 13:04 | disposition home or self-care (01) ==
PROVIDERS: Emergency Provider Nurse Practitioner Family; PCP Family Medicine
DX: J01.90 Acute sinusitis, unspecified (principal); J03.90 Acute tonsillitis, unspecified; H92.03 Otalgia, bilateral; R09.89 Other specified symptoms and signs involving the circulatory and respiratory systems; Z87.891 Personal history of nicotine dependence
CPT/HCPCS: 96372; 99212; 99214; G0463

== ENCOUNTER 2023-03-16 08:51 | Day surgery (SDC) | payer MEDICARE, BC, OTHER, SELFPAY ==
[2023-03-16] VITALS (14 sets, daily range): BP systolic 122–156; BP diastolic 55–81; PULSE 58–68; RESP 17–20; O2SAT 94–96; BMI 35.7
--- NOTE | 2023-03-16 | IR_ITS ---
APPROVED REPORT Patient Location: Outpatient PROCEDURES Left heart catheterization Left ventriculogram Selective coronary angiogram Selective engagement of left internal mammary artery Selective engagement of the saphenous vein graft to the diagonal artery Selective engagement of the saphenous vein graft to the circumflex artery Drug-eluting stent deployment to the mid and distal left anterior descending artery through the left internal mammary arterial graft INDICATION Coronary artery disease, History of coronary bypass surgery, Accelerated and worsening angina pectoris Informed consent was obtained prior to the procedure. COMPLICATIONS None Estimated Blood Loss: Less than 10 mls TECHNIQUE 1% lidocaine was used anesthetize right groin the right femoral artery was accessed via the Salinger technique and a 5 [place] sheath was placed in the right femoral artery. There was dense calcification of the femoral artery with significant difficulty getting the sheath to pass. This was upsized to a 6 [place] and then ultimately a 7 [place] sheath which then allowed diagnostic angiography to be performed with a JL 4 and a JULIEN catheter. Left internal mammary angiography was performed along with selective engagement of 2 saphenous vein grafts. At the end of the diagnostic angiogram therapeutic heparin was administered giving a therapeutic ACT and a 6 [place] left internal mammary guide catheter was placed in the JULIEN graft. A telescope was then advanced over a Choice PT extra-support wire. A 2 mm x 12 mm balloon was deployed at 20 dinesh to predilate the stenosis. Following this a 2.25 x 18 mm [place] frontier stent was deployed at 18 dinesh reducing the stenosis to 0%. An additional 2.5 x 22 mm [place] frontier stent was then placed proximal to the for stent yet still overlapping it and deployed at 20 dinesh reducing the stenosis to 0%. CATHY-3 flow was present before and after the procedure down the LAD. After achieving excellent angiograph results the apparatus was removed the groin is reprepped closure change sheath was removed good hemostasis was achieved using Angio-Seal device patient was transferred to the postop putting in stable condition ANGIOGRAPHIC RESULTS The left main artery Has an ostial 40% stenosis The left anterior descending artery Left anterior descending artery has ostially occluded. There appeared to be 2 small to medium sized ramus intermedius vessels. A vessel less than 2 mm in diameter has a proximal 90% stenosis with no competitive flow. The larger of the 2 ramus vessels has a proximal 90% stenosis with evidence of competitive flow distally The circumflex artery Proximally occluded The right coronary artery Vestigial and has a proximal tandem 80 and 90% stenosis. This is a small vessel which does not provide any flow to the left ventricle The CARRERA ventriculogram reveals Not performed The left ventricular end-diastolic pressure Not measured JULIEN graft to LAD is widely patent however distal to the anastomosis there are 80 and tandem 90% stenoses in the mid and distal LAD. The LAD is large and wraps the apex Saphenous vein graft to high first obtuse marginal artery is widely patent. The first obtuse marginal artery is a large [place] vessel Saphenous vein graft to the ramus intermedius is widely patent. Both the graft and ramus are caliber vessel Saphenous vein graft right coronary is noted to be ostially occluded IMPRESSION Severe disease in the [place] LAD distal to the anastomosis of the JULIEN graft Successful stenting of the mid to distal LAD critical disease reduced to 0% with 2 contiguous drug-eluting stents with stenting through the JULIEN graft into the [place] LAD Patent saphenous vein g
[2023-03-16 09:32] LABS: Basophils # 0.1 K/mm3 (0-0.2); Basophils % 0.6 % (0.1-2.0); Eosinophils # 0.5 K/mm3 (0.0-0.4); Eosinophils % 5.8 % (0.1-12.0); Hematocrit 43.1 % (42.0-52.0); Hemoglobin 14.1 g/dL (14.1-18.0); Lymphocytes # 1.1 K/mm3 (0.7-4.5); Lymphocytes % 13.5 % (10-50); Mean Corpuscular HGB Conc 32.6 g/dL (31.8-35.4); Mean Corpuscular Volume 94.9 fl (80-94); Mean Platelet Volume 7.4 fl (7.4-10.4); Monocytes # 0.5 K/mm3 (0.1-1.0); Monocytes % 6.5 % (1.7-9.3); Neutrophils # 5.9 K/mm3 (1.8-7.8); Neutrophils % 73.6 % (37.0-80.0); Platelet Count 231 K/mm3 (142-424); Red Blood Count 4.55 M/mm3 (4.60-6.20); Red Cell Distribution Width 13.3 % (11.5-17.5); White Blood Count 8.1 K/mm3 (4.8-10.8)
[2023-03-16 09:41] LABS: INR 1.01 (0.9-1.1); Prothrombin Time 10.9 seconds (10.1-12.5)
[2023-03-16 09:43] LABS: Anion Gap 12.2 mEq/L (5-15); Blood Urea Nitrogen 12 mg/dl (9-20); Calcium 8.5 mg/dl (8.4-10.2); Carbon Dioxide 28 mmol/L (22.0-30.0); Chloride 92 mmol/L (98-107); Creatinine Clearance Estimated 86 mL/min (50-200); Estimated Glomerular Filt Rate 93 ml/min (>60); GFR (African American) 112 ML/MIN (>60); Glucose 92 mg/dl (74-100); Potassium 4.2 mmoL/L (3.5-5.1); Sodium 128 mmol/L (136-145)
--- NOTE | 2023-03-16 12:57 | P.CONPHA_ITS ---
[facility] Director Process Improvement Discharge Med Station Jailer: Manuel Sarmiento has received discharge medication counseling on the following medications: -ASPIRIN (PATIENT PREVIOUSLY TAKING, NO QUESTIONS) -CARVEDILOL (PATIENT PREVIOUSLY TAKING, NO QUESTIONS) -PLAVIX (PATIENT PREVIOUSLY TAKING, NO QUESTIONS) -LOSARTAN (PATIENT PREVIOUSLY TAKING, NO QUESTIONS) -NO STATIN DUE TO ALLERGY. PATIENT VERBALIZED NO QUESTIONS AT THIS TIME.
[2023-03-16 13:41] LABS: CATHL Activated Clotting Time 322 SEC (74-125)
== END 2023-03-16 15:30 | disposition home or self-care (01) ==
PROVIDERS: PCP Family Medicine; Visit Provider Internal Medicine
DX: I25.118 Atherosclerotic heart disease of native coronary artery with other forms of angina pectoris (principal); Z95.5 Presence of coronary angioplasty implant and graft; I65.29 Occlusion and stenosis of unspecified carotid artery; I10 Essential (primary) hypertension; E78.5 Hyperlipidemia, unspecified; Z95.1 Presence of aortocoronary bypass graft
CPT/HCPCS: 80048; 85025; 85347; 85610; 92928; 93459; 99152; 99153; C1725; C1760; C1766; C1769; C1874; C1876; C1894; C9600; J1644; Q9967

== ENCOUNTER → 2023-04-02 10:28 | Outpatient (CLI) | payer MEDICARE, BC, SELFPAY ==
[2023-04-02 10:48] LABS: Basophils % 0.4 % (0.1-2.0); Eosinophils # 0.4 K/mm3 (0.0-0.4); Eosinophils % 5.8 % (0.1-12.0); Hemoglobin 13.4 g/dL (14.1-18.0); Lymphocytes % 16.1 % (10-50); Mean Corpuscular Hemoglobin 30.7 pg (27.0-31.2); Mean Platelet Volume 7.5 fl (7.4-10.4); Monocytes # 0.5 K/mm3 (0.1-1.0); Monocytes % 7.7 % (1.7-9.3); Neutrophils # 4.2 K/mm3 (1.8-7.8); Platelet Count 180 K/mm3 (142-424); Red Blood Count 4.38 M/mm3 (4.60-6.20); Red Cell Distribution Width 13.2 % (11.5-17.5)
[2023-04-02 11:17] LABS: Anion Gap 11.5 mEq/L (5-15); Blood Urea Nitrogen 9 mg/dl (9-20); Calcium 9.1 mg/dl (8.4-10.2); Carbon Dioxide 29 mmol/L (22.0-30.0); Chloride 96 mmol/L (98-107); Estimated Glomerular Filt Rate 93 ml/min (>60); GFR (African American) 112 ML/MIN (>60); Glucose 95 mg/dl (74-100); Potassium 4.5 mmoL/L (3.5-5.1); Sodium 132 mmol/L (136-145)
== END ==
PROVIDERS: PCP Family Medicine; Visit Provider Internal Medicine
DX: I25.10 Atherosclerotic heart disease of native coronary artery without angina pectoris (principal); Z95.5 Presence of coronary angioplasty implant and graft
CPT/HCPCS: 36415; 80048; 85025; 93225

== ENCOUNTER → 2023-04-16 14:19 | Outpatient (CLI) | payer MEDICARE, BC, SELFPAY | PROVIDERS: PCP Family Medicine; Visit Provider Nurse Practitioner | DX: E78.5 Hyperlipidemia, unspecified (principal); G47.9 Sleep disorder, unspecified; I10 Essential (primary) hypertension; I25.10 Atherosclerotic heart disease of native coronary artery without angina pectoris; I44.30 Unspecified atrioventricular block; I45.5 Other specified heart block; R09.89 Other specified symptoms and signs involving the circulatory and respiratory systems; R94.31 Abnormal electrocardiogram [ECG] [EKG]; Z95.1 Presence of aortocoronary bypass graft; Z95.5 Presence of coronary angioplasty implant and graft; I42.8 Other cardiomyopathies | CPT/HCPCS: 93270 ==

== ENCOUNTER → 2023-05-04 10:58 | Outpatient (CLI) | payer MEDICARE, BC, SELFPAY ==
--- NOTE | 2023-05-04 11:00 | CA_ITS ---
APPROVED REPORT EXAM: Comprehensive 2D, Doppler, and color-flow Echocardiogram Audio Visual Director: Consuelo Self RVT Ht: 5 ft 8 in Wt: 233lbs BSA: 2.18 BP: 145/76 mmHg Indications: SOA,CAD,CABG,CM,HTN,HLD,ABN EKG,EX SMOKER 2D Dimensions IVSd 0.98 cm M: 0.6-1.2 LVEF (Visual) 45.00 % PWd 1.19 cm M: 0.6 - 1.2 LA Volume 40.50 mL LVDd 4.90 cm M: 4.2 - 5.9 LA Volume Index 18.58 mL/m2 (M/F) 16-34 LVDs 3.80 cm M: 2.5 - 4.0 LVOT 2.80 cm (M/F) 1.5-2.5 M-Mode Dimensions LA Diam 4.47 cm (1.9-4.0) Ao Diam 3.73 cm (2.0-3.7) LV Diastology E Decel Time 380.00 (160-240 msec) E/A Ratio 0.7 MED E' 8.20 (< 7 cm/sec) E'/MED E' Ratio 6.78 (>14) LAT E' 7.40 (<10 cm/sec) E/LAT E' Ratio 7.51 (>14) Aortic Valve AI PHT 2420.00 ms AO Peak GR. 1.90 mmHg Mitral Valve MV E Max Messi. 56.00 (40-130 cm/s) MV A Velocity 82.00 (40-130 cm/s) E/A Ratio 0.68 MV Decel. Time 380.00 (160-240 ms) MV Mean Gr. 1.20 (<2mmHg) MV PHT 111.00 ms Pulmonary Valve PV Peak Velocity 55.00 (50-150 cm/s) Left Ventricle The left ventricle is normal size. Left ventricular systolic function is mildly decreased. There is increased LV wall thickness. There is mild global hypokinesis. Transmitral Doppler flow pattern suggests impaired LV relaxation. LVEF is 40-45%. Right Ventricle Right ventricle is moderate to severely dilated. Right ventricle is mildly hypokinetic. Atria The left atrium size is normal. Right atrium is moderately dilated. There is no Doppler evidence of interatrial shunt. Aortic Valve The aortic valve is mildly thickened. The aortic valve opens well. There is no aortic valvular stenosis. Mild aortic regurgitation. Mitral Valve The mitral valve is mildly thickened. No evidence of mitral valve stenosis. There is no mitral valve regurgitation noted. Tricuspid Valve The tricuspid valve leaflets are thin and pliable. Trace tricuspid regurgitation. There is insufficient TR jet to estimate RVSP. Pulmonic Valve The pulmonary valve is normal in structure. Mild pulmonic regurgitation. Great Vessels The aortic root is normal in size. The ascending aorta is not well visualized. IVC is normal in size and collapses >50% with inspiration. Pericardium There is no pericardial effusion. Prominent fat pad is noted. Other Information Study Quality: Technically Difficult. Technically limited study due to poor accoustic windows. Conclusion This was a technically difficult study due to poor accoustic windows. Mild reduction in LV systolic function. LVEF is 40-45%. Moderate RV dilation with mild reduction in RV systolic function. Moderate RA dilation No significant valvular disease. Electronically signed by : Dalila Day, 05/04/2023 13:32:08
== END ==
PROVIDERS: PCP Family Medicine; Visit Provider Nurse Practitioner
DX: E78.5 Hyperlipidemia, unspecified (principal); G47.9 Sleep disorder, unspecified; I10 Essential (primary) hypertension; I25.10 Atherosclerotic heart disease of native coronary artery without angina pectoris; I35.1 Nonrheumatic aortic (valve) insufficiency; I44.30 Unspecified atrioventricular block; I45.5 Other specified heart block; I65.29 Occlusion and stenosis of unspecified carotid artery; R09.89 Other specified symptoms and signs involving the circulatory and respiratory systems; R94.31 Abnormal electrocardiogram [ECG] [EKG]; Z95.1 Presence of aortocoronary bypass graft; Z95.5 Presence of coronary angioplasty implant and graft; R06.02 Shortness of breath; I42.8 Other cardiomyopathies
CPT/HCPCS: 93306

== ENCOUNTER → 2023-05-29 12:27 | Outpatient (CLI) | payer MEDICARE, BC, SELFPAY ==
[2023-05-29 13:38] LABS: Chloride 94 mmol/L (98-107); Potassium 4.6 mmoL/L (3.5-5.1); Sodium 130 mmol/L (136-145)
[2023-05-29 13:41] LABS: Anion Gap 10.6 mEq/L (5-15); Blood Urea Nitrogen 11 mg/dl (9-20); Calcium 9.5 mg/dl (8.4-10.2); Carbon Dioxide 30 mmol/L (22.0-30.0); Estimated Glomerular Filt Rate 81 ml/min (>60); GFR (African American) 98 ML/MIN (>60); Glucose 97 mg/dl (74-100)
[2023-05-29 14:41] LABS: NT Pro Brain Natriuretic Pep. 151 pg/mL (0-450)
== END ==
PROVIDERS: PCP Family Medicine; Visit Provider Physician Assistant
DX: R06.00 Dyspnea, unspecified (principal); G47.9 Sleep disorder, unspecified; I25.10 Atherosclerotic heart disease of native coronary artery without angina pectoris; I35.1 Nonrheumatic aortic (valve) insufficiency; I44.30 Unspecified atrioventricular block; I45.5 Other specified heart block; I65.29 Occlusion and stenosis of unspecified carotid artery; R09.89 Other specified symptoms and signs involving the circulatory and respiratory systems; Z95.5 Presence of coronary angioplasty implant and graft
CPT/HCPCS: 36415; 80048; 83880

== ENCOUNTER → 2023-06-05 10:38 | Outpatient (CLI) | payer MEDICARE, BC, SELFPAY ==
--- NOTE | 2023-06-05 10:41 | FL_ITS ---
FINAL REPORT CLINICAL HISTORY: LLQ ABD PAIN FT: 3:36 DAP: 4966.57 FINDINGS: Barium enema. History: Acute left lower quadrant abdominal pain. Procedure: Barium contrast was instilled into the patient's colon via a rectal tube, utilizing gravity drip. Spot and overhead films were performed. A total of 19 images were saved. Findings: Worship Director film demonstrates some air in the colon. Examination is extremely limited. The patient was unable to retain the rectal catheter and balloon. The patient expelled the balloon multiple times during the examination. When the balloon was held in place, contrast leaked around the balloon as well. Therefore, only the sigmoid colon could be filled with contrast. There is severe diverticulosis of the visualized sigmoid colon. Fluoroscopy time: 3 minutes, 36 seconds Fluoroscopy dose: 4966.57 DAP in uGym2 IMPRESSION: Severely limited examination as detailed above. Only the sigmoid colon could be opacified with contrast. Severe diverticulosis of the sigmoid colon. Reviewed, Interpreted and Dictated by Keegan Pascual III, MD Transcribed by Jazlyn Stiles PA-C Authenticated and [facility]
== END ==
PROVIDERS: PCP Family Medicine; Visit Provider Family Medicine
DX: R10.32 Left lower quadrant pain (principal)
CPT/HCPCS: 74270

== ENCOUNTER 2023-06-12 22:05 | Emergency (ER) | payer MEDICARE, BC, SELFPAY ==
[2023-06-12 22:34] VITALS: BP 183/85; PULSE 61; RESP 18; TEMP 36.5; O2SAT 97; BMI 34.0
[2023-06-12 22:51] VITALS: BP 150/91; PULSE 60; O2SAT 97
[2023-06-12 23:00] VITALS: BP 156/74; PULSE 60; O2SAT 95
--- NOTE | 2023-06-12 23:02 | CT_ITS ---
PROCEDURE INFORMATION: Exam: CT Abdomen And Pelvis With Contrast Exam date and time: 06/12/2023 11:44 PM Age: 83 years old Clinical indication: Abdominal pain; Additional info: Llq pain TECHNIQUE: Imaging protocol: Computed tomography of the abdomen and pelvis with contrast. Radiation optimization: All CT scans at this facility use at least one of these dose optimization techniques: automated exposure control; mA and/or kV adjustment per patient size (includes targeted exams where dose is matched to clinical indication); or iterative reconstruction. Contrast material: ISOVUE; Contrast volume: 75 ml; Contrast route: IV; REPORTING DATA: Count of CT and Cardiac NM exams in prior 12 months: This patient has received [address] and 0 known cardiac nuclear medicine studies in the 12 months prior to the current study. COMPARISON: CT ABDOMEN PELVIS WO/W CON 08/27/2022 9:00 AM FINDINGS: Lungs: Mild pulmonary fibrosis at the lung bases. Liver: Hepatic cysts. Gallbladder and bile ducts: Status post cholecystectomy. Mild biliary ductal dilation which is likely related to cholecystectomy state Pancreas: Unremarkable. Spleen: Unremarkable. Adrenal glands: Unremarkable. Kidneys and ureters: No mass lesion. No hydronephrosis. Stomach and bowel: Colonic diverticulosis without CT evidence of acute diverticulitis. Residual barium within scattered colonic diverticula related to recent barium enema examination. Appendix: No evidence of appendicitis. Intraperitoneal space: Unremarkable. Vasculature: [id number] atherosclerotic disease in the abdomen and pelvis. Lymph nodes: Unremarkable. Urinary bladder: Unremarkable as visualized. Reproductive: Unremarkable as visualized. Bones/joints: Bilateral hip arthroplasties, streak artifact limits assessment of pelvic structures. Post left sacroiliac fixation. Soft tissues: Small fat containing left inguinal hernia. Minimal areas of subcutaneous stranding and small foci of air of the anterior abdominal wall, query sequela of subcutaneous injections. IMPRESSION: 1. No acute findings in the abdomen and pelvis. 2. Colonic diverticulosis without evidence of acute diverticulitis. Retained barium within multiple colonic diverticula related to recent barium enema examination.
--- NOTE | 2023-06-12 23:04 | HMH.EDGENADL ---
Discharge Plan Disposition Patient Disposition: Home, Self-Care Condition: Good Prescriptions Prescriptions: No Action acetaminophen [Tylenol Extra Strength] 500 mg tablet 500 mg PO Q6H PRN (Reason: pain) melatonin 5 mg capsule 10 mg PO .COMPLEX Rx Instructions: 10 mg orally HS; multivitamin Tablet 1 tab PO DAILY magnesium oxide 500 mg capsule 500 mg PO DAILY polyethylene glycol 3350 [Miralax] 17 gram/dose powder 17 g PO DAILY PRN (Reason: constipation) Metamucil 3.4 gram/5.4 gram powder 1 tbsp PO DAILY PRN (Reason: constipation) Rx Instructions: mix into at least 8 oz of water or juice before administering nitroglycerin 0.4 mg tablet, sublingual 0.4 mg sublingual Q5M PRN (Reason: chest pain) Qty: 25 0RF Rx Instructions: do not exceed 3 doses per episode gabapentin 400 mg capsule 600 mg PO TID losartan 50 mg tablet 50 mg PO BID Qty: 60 5RF hydrochlorothiazide 12.5 mg tablet 12.5 mg PO DAILY Qty: 30 2RF venlafaxine 75 mg capsule,extended release 24hr 75 mg PO DAILY 30 Days Qty: 30 Patient Comments: levothyroxine 88 mcg tablet 88 mcg PO DAILY 30 Days Qty: 30 Patient Comments: aspirin [Adult Low Dose Aspirin] 81 mg tablet,delayed release (DR/EC) 81 mg PO DAILY tamsulosin 0.4 mg capsule 0.4 mg PO DAILY zolpidem [Ambien] 10 mg tablet 10 mg PO HS fluticasone propionate [Flonase Allergy Relief] 50 mcg/actuation spray,suspension 1 spray intranasal DAILY PRN (Reason: nasal congestion) Qty: 16 0RF Rx Instructions: administer into each nostril amlodipine 5 mg tablet See Rx Instructions .Route .COMPLEX Qty: 90 3RF Rx Instructions: TAKE 1 TABLET BY MOUTH ONCE DAILY Repatha SureClick 140 mg/mL pen injector 140 mg SQ Q2W Qty: 2 6RF carvedilol 3.125 mg tablet See Rx Instructions .ROUTE .COMPLEX Qty: 180 1RF Dose Instruction: TAKE 1 TABLET BY MOUTH TWICE DAILY Rx Instructions: TAKE 1 TABLET BY MOUTH TWICE DAILY potassium chloride 8 mEq tablet extended release See Rx Instructions .ROUTE .COMPLEX Qty: 90 1RF Dose Instruction: TAKE 1 TABLET BY MOUTH ONCE DAILY Rx Instructions: TAKE 1 TABLET BY MOUTH ONCE DAILY isosorbide mononitrate 30 mg tablet extended release 24 hr 30 mg PO DAILY clopidogrel 75 mg tablet See Rx Instructions .ROUTE .COMPLEX Rx Instructions: TAKE ONE TABLET BY MOUTH EVERY DAY pantoprazole 40 mg tablet,delayed release (DR/EC) 40 mg PO DAILY turmeric 400 MG capsule 400 mg PO DAILY garlic 500 MG tablet 2,000 mg PO DAILY coenzyme Q10 200 MG capsule 200 mg PO DAILY vitamin D3-vitamin K2 (MK4) 1 EACH tablet 1 each PO DAILY omega-3 fatty acids 300 MG capsule 600 mg PO DAILY L.acidoph, paracasei,B. lactis 1 EACH capsule 1 each PO DAILY ascorbic acid (vitamin C) 1,000 MG tablet 1,000 mg PO DAILY Referrals Follow up/Referrals: Juliocesar Whitehead MD [Primary Care Provider] - See instructions Activity Restrictions/Add. Instructions Additional Instructions/Restrictions: You were evaluated in the emergency department today. Please follow-up with your primary care provider over the next 48 hours. I also recommend close follow-up with gastroenterology and/or general surgery for continued work-up of your chronic abdominal pain. Please return to the emergency department for any new or worsening symptoms. Clinical Impressions Clinical Impression: Abdominal pain, Diverticulosis Instructions Patient Instructions: DI for Acute Abdominal Pain Discharge ED Provider: Alyce Kelly General Adult HPI <Cr Bonilla MD - Last Filed: 06/12/23 23:07> General Chief complaint: Abdominal Pain Stated complaint: Abd pain Lower left Back pain Time Seen by Provider: 06/12/23 22:35 Mode of Arrival: Ambulatory Source of Information: Patient and Spouse Morales
[2023-06-12 23:09] LABS: Microscopic, Urine URINE MICROSCOPIC (MICROSCOPIC)
[2023-06-12 23:10] LABS: Basophils % 0.4 % (0.1-2.0); Eosinophils # 0.4 K/mm3 (0.0-0.4); Eosinophils % 4.4 % (0.1-12.0); Hematocrit 41.2 % (42.0-52.0); Hemoglobin 13.5 g/dL (14.1-18.0); Lymphocytes # 1.3 K/mm3 (0.7-4.5); Lymphocytes % 16.1 % (10-50); Mean Corpuscular HGB Conc 32.8 g/dL (31.8-35.4); Mean Corpuscular Hemoglobin 30.8 pg (27.0-31.2); Mean Corpuscular Volume 93.9 fl (80-94); Mean Platelet Volume 8.1 fl (7.4-10.4); Monocytes # 0.6 K/mm3 (0.1-1.0); Monocytes % 6.9 % (1.7-9.3); Neutrophils # 5.7 K/mm3 (1.8-7.8); Neutrophils % 72.3 % (37.0-80.0); Platelet Count 241 K/mm3 (142-424); Red Blood Count 4.39 M/mm3 (4.60-6.20); Red Cell Distribution Width 12.5 % (11.5-17.5); White Blood Count 7.9 K/mm3 (4.8-10.8)
[2023-06-12 23:12] LABS: Chloride 92 mmol/L (98-107); Potassium 4.6 mmoL/L (3.5-5.1); Sodium 125 mmol/L (136-145)
[2023-06-12 23:15] LABS: Alanine Aminotransferase 28 U/L (12-78); Albumin Level 4.1 g/dl (3.5-5.0); Albumin/Globulin Ratio 1.4 (1.1-1.8); Alkaline Phosphatase 53 U/L (38-126); Anion Gap 11.6 mEq/L (5-15); Aspartate Amino Transferase 59 U/L (17-59); Bilirubin,Total 0.6 mg/dl (0.2-1.3); Blood Urea Nitrogen 8 mg/dl (9-20); Calcium 9.1 mg/dl (8.4-10.2); Carbon Dioxide 26 mmol/L (22.0-30.0); Creatinine Clearance Estimated 80 mL/min (50-200); Estimated Glomerular Filt Rate 108 ml/min (>60); GFR (African American) 130 ML/MIN (>60); Globulin 2.9 g/dL (1.3-3.2); Glucose 101 mg/dl (74-100); Lipase 99 U/L (23-300)
[2023-06-12 23:17] LABS: Appearance,Urine CLEAR (Clear); Bilirubin,Urine Negative (Negative); Blood, Urine Negative (Negative); Color,Urine YELLOW (Yellow); Glucose,Urine (UA) Negative (Negative); Ketones,Urine Negative (Negative); Leukocyte Esterase,Urine Negative (Negative); Nitrate,Urine Negative (Negative); Protein,Urine Negative (Negative); Specific Gravity, Urine 1.015 (1.005-1.030); Urobilinogen,Urine 0.2 EU/dl (0.2)
--- NOTE | 2023-06-12 23:25 | PC.NURSE ---
Post void residual 153mL per bladder scanner
[2023-06-13 00:11] LABS: RBC,Urine Occasional #/hpf (0-3); Squamous Epithelial Cell,Urine Occasional #/hpf (0-5); WBC,Urine Occasional #/hpf (0-3)
[2023-06-13 01:49] VITALS: BP 121/79; PULSE 75; RESP 19; TEMP 36.8; O2SAT 98
== END 2023-06-13 01:49 | disposition home or self-care (01) ==
PROVIDERS: Emergency Medicine; Emergency Provider Emergency Medicine; PCP Family Medicine
DX: R10.32 Left lower quadrant pain (principal); R14.0 Abdominal distension (gaseous); E87.1 Hypo-osmolality and hyponatremia; R09.89 Other specified symptoms and signs involving the circulatory and respiratory systems; I35.1 Nonrheumatic aortic (valve) insufficiency
CPT/HCPCS: 74177; 80053; 81001; 83690; 85025; 96361; 96374; 96375; 99285; J2405; Q9967

== ENCOUNTER 2023-06-18 15:25 | Emergency (ER) | payer MEDICARE, BC, SELFPAY ==
[2023-06-18] VITALS (8 sets, daily range): BP systolic 155–178; BP diastolic 79–94; PULSE 61–75; RESP 18–19; TEMP 36.8–36.9; O2SAT 97–100; BMI 33.9
--- NOTE | 2023-06-18 15:44 | EXP.UTC ---
Discharge Plan Disposition Patient Disposition: Still a Patient Condition: Fair Prescriptions Prescriptions: No Action acetaminophen [Tylenol Extra Strength] 500 mg tablet 500 mg PO Q6H PRN (Reason: pain) melatonin 5 mg capsule 10 mg PO .COMPLEX Rx Instructions: 10 mg orally HS; multivitamin Tablet 1 tab PO DAILY magnesium oxide 500 mg capsule 500 mg PO DAILY polyethylene glycol 3350 [Miralax] 17 gram/dose powder 17 g PO DAILY PRN (Reason: constipation) Metamucil 3.4 gram/5.4 gram powder 1 tbsp PO DAILY PRN (Reason: constipation) Rx Instructions: mix into at least 8 oz of water or juice before administering nitroglycerin 0.4 mg tablet, sublingual 0.4 mg sublingual Q5M PRN (Reason: chest pain) Qty: 25 0RF Rx Instructions: do not exceed 3 doses per episode gabapentin 400 mg capsule 600 mg PO TID losartan 50 mg tablet 50 mg PO BID Qty: 60 5RF hydrochlorothiazide 12.5 mg tablet 12.5 mg PO DAILY Qty: 30 2RF venlafaxine 75 mg capsule,extended release 24hr 75 mg PO DAILY 30 Days Qty: 30 Patient Comments: levothyroxine 88 mcg tablet 88 mcg PO DAILY 30 Days Qty: 30 Patient Comments: aspirin [Adult Low Dose Aspirin] 81 mg tablet,delayed release (DR/EC) 81 mg PO DAILY tamsulosin 0.4 mg capsule 0.4 mg PO DAILY zolpidem [Ambien] 10 mg tablet 10 mg PO HS fluticasone propionate [Flonase Allergy Relief] 50 mcg/actuation spray,suspension 1 spray intranasal DAILY PRN (Reason: nasal congestion) Qty: 16 0RF Rx Instructions: administer into each nostril amlodipine 5 mg tablet See Rx Instructions .Route .COMPLEX Qty: 90 3RF Rx Instructions: TAKE 1 TABLET BY MOUTH ONCE DAILY Repatha SureClick 140 mg/mL pen injector 140 mg SQ Q2W Qty: 2 6RF carvedilol 3.125 mg tablet See Rx Instructions .ROUTE .COMPLEX Qty: 180 1RF Dose Instruction: TAKE 1 TABLET BY MOUTH TWICE DAILY Rx Instructions: TAKE 1 TABLET BY MOUTH TWICE DAILY potassium chloride 8 mEq tablet extended release See Rx Instructions .ROUTE .COMPLEX Qty: 90 1RF Dose Instruction: TAKE 1 TABLET BY MOUTH ONCE DAILY Rx Instructions: TAKE 1 TABLET BY MOUTH ONCE DAILY isosorbide mononitrate 30 mg tablet extended release 24 hr 30 mg PO DAILY clopidogrel 75 mg tablet See Rx Instructions .ROUTE .COMPLEX Rx Instructions: TAKE ONE TABLET BY MOUTH EVERY DAY pantoprazole 40 mg tablet,delayed release (DR/EC) 40 mg PO DAILY turmeric 400 MG capsule 400 mg PO DAILY garlic 500 MG tablet 2,000 mg PO DAILY coenzyme Q10 200 MG capsule 200 mg PO DAILY vitamin D3-vitamin K2 (MK4) 1 EACH tablet 1 each PO DAILY omega-3 fatty acids 300 MG capsule 600 mg PO DAILY L.acidoph, paracasei,B. lactis 1 EACH capsule 1 each PO DAILY ascorbic acid (vitamin C) 1,000 MG tablet 1,000 mg PO DAILY Referrals Follow up/Referrals: Juliocesar Whitehead MD [Primary Care Provider] - See instructions Clinical Impressions Clinical Impression: Abdominal pain Discharge ED Provider: Joel Garza [facility] HPI General Stated complaint: abd pain, nausea Time Seen by Provider: 06/18/23 15:44 History of Present Illness Provider Complaint: He is back with continued abdominal pain. His pain has been ongoing for the past several days. He was seen here in the ER on 06/13 for this same pain. He states that his pain comes in waves and it goes all across the bottom of his abdomen. He states that the pain is worse in his left lower quadrant than elsewhere in his abdomen. He denies constipation or diarrhea. He states that he has been having a lot of gas also. He denies that he can identify anything that has made his pain worse or better. The intensity has worsened this evening is the reason he came back today. Related Data Home Medications Medication
--- NOTE | 2023-06-18 16:29 | PC.NURSE ---
Dr. Garza at [facility] for pt eval
[2023-06-18 16:34] LABS: Basophils % 0.3 % (0.1-2.0); Eosinophils # 0.3 K/mm3 (0.0-0.4); Eosinophils % 3.2 % (0.1-12.0); Hematocrit 43.7 % (42.0-52.0); Hemoglobin 14.4 g/dL (14.1-18.0); Lymphocytes # 0.9 K/mm3 (0.7-4.5); Lymphocytes % 11.5 % (10-50); Mean Corpuscular Hemoglobin 31.2 pg (27.0-31.2); Mean Corpuscular Volume 94.6 fl (80-94); Mean Platelet Volume 7.1 fl (7.4-10.4); Monocytes # 0.4 K/mm3 (0.1-1.0); Monocytes % 5.5 % (1.7-9.3); Neutrophils # 6.2 K/mm3 (1.8-7.8); Neutrophils % 79.4 % (37.0-80.0); Platelet Count 256 K/mm3 (142-424); Red Blood Count 4.62 M/mm3 (4.60-6.20); Red Cell Distribution Width 12.6 % (11.5-17.5); White Blood Count 7.8 K/mm3 (4.8-10.8)
[2023-06-18 16:35] LABS: Chloride 92 mmol/L (98-107); Sodium 127 mmol/L (136-145)
--- NOTE | 2023-06-18 16:35 | PC.NURSE ---
DR MENDEZ AT BEDSIDE
[2023-06-18 16:36] LABS: Potassium 4.7 mmoL/L (3.5-5.1)
[2023-06-18 16:38] LABS: Alanine Aminotransferase 29 U/L (12-78); Albumin Level 4.3 g/dl (3.5-5.0); Albumin/Globulin Ratio 1.4 (1.1-1.8); Alkaline Phosphatase 73 U/L (38-126); Anion Gap 12.7 mEq/L (5-15); Aspartate Amino Transferase 36 U/L (17-59); Bilirubin,Total 0.7 mg/dl (0.2-1.3); Blood Urea Nitrogen 7 mg/dl (9-20); Calcium 9.4 mg/dl (8.4-10.2); Carbon Dioxide 27 mmol/L (22.0-30.0); Creatinine Clearance Estimated 80 mL/min (50-200); Estimated Glomerular Filt Rate 81 ml/min (>60); GFR (African American) 98 ML/MIN (>60); Globulin 3.1 g/dL (1.3-3.2); Glucose 110 mg/dl (74-100); Lipase 104 U/L (23-300); Total Protein,Serum 7.4 g/dl (6.3-8.2)
[2023-06-18 16:42] LABS: Lactic Acid 2.3 mmol/L (0.7-2.1)
--- NOTE | 2023-06-18 16:49 | HMH.EDGENADL ---
Discharge Plan Disposition Patient Disposition: Home, Self-Care Condition: Fair Prescriptions Prescriptions: No Action acetaminophen [Tylenol Extra Strength] 500 mg tablet 500 mg PO Q6H PRN (Reason: pain) melatonin 5 mg capsule 10 mg PO .COMPLEX Rx Instructions: 10 mg orally HS; multivitamin Tablet 1 tab PO DAILY magnesium oxide 500 mg capsule 500 mg PO DAILY polyethylene glycol 3350 [Miralax] 17 gram/dose powder 17 g PO DAILY PRN (Reason: constipation) Metamucil 3.4 gram/5.4 gram powder 1 tbsp PO DAILY PRN (Reason: constipation) Rx Instructions: mix into at least 8 oz of water or juice before administering nitroglycerin 0.4 mg tablet, sublingual 0.4 mg sublingual Q5M PRN (Reason: chest pain) Qty: 25 0RF Rx Instructions: do not exceed 3 doses per episode gabapentin 400 mg capsule 600 mg PO TID losartan 50 mg tablet 50 mg PO BID Qty: 60 5RF hydrochlorothiazide 12.5 mg tablet 12.5 mg PO DAILY Qty: 30 2RF venlafaxine 75 mg capsule,extended release 24hr 75 mg PO DAILY 30 Days Qty: 30 Patient Comments: levothyroxine 88 mcg tablet 88 mcg PO DAILY 30 Days Qty: 30 Patient Comments: aspirin [Adult Low Dose Aspirin] 81 mg tablet,delayed release (DR/EC) 81 mg PO DAILY tamsulosin 0.4 mg capsule 0.4 mg PO DAILY zolpidem [Ambien] 10 mg tablet 10 mg PO HS fluticasone propionate [Flonase Allergy Relief] 50 mcg/actuation spray,suspension 1 spray intranasal DAILY PRN (Reason: nasal congestion) Qty: 16 0RF Rx Instructions: administer into each nostril amlodipine 5 mg tablet See Rx Instructions .Route .COMPLEX Qty: 90 3RF Rx Instructions: TAKE 1 TABLET BY MOUTH ONCE DAILY Repatha SureClick 140 mg/mL pen injector 140 mg SQ Q2W Qty: 2 6RF carvedilol 3.125 mg tablet See Rx Instructions .ROUTE .COMPLEX Qty: 180 1RF Dose Instruction: TAKE 1 TABLET BY MOUTH TWICE DAILY Rx Instructions: TAKE 1 TABLET BY MOUTH TWICE DAILY potassium chloride 8 mEq tablet extended release See Rx Instructions .ROUTE .COMPLEX Qty: 90 1RF Dose Instruction: TAKE 1 TABLET BY MOUTH ONCE DAILY Rx Instructions: TAKE 1 TABLET BY MOUTH ONCE DAILY isosorbide mononitrate 30 mg tablet extended release 24 hr 30 mg PO DAILY clopidogrel 75 mg tablet See Rx Instructions .ROUTE .COMPLEX Rx Instructions: TAKE ONE TABLET BY MOUTH EVERY DAY pantoprazole 40 mg tablet,delayed release (DR/EC) 40 mg PO DAILY turmeric 400 MG capsule 400 mg PO DAILY garlic 500 MG tablet 2,000 mg PO DAILY coenzyme Q10 200 MG capsule 200 mg PO DAILY vitamin D3-vitamin K2 (MK4) 1 EACH tablet 1 each PO DAILY omega-3 fatty acids 300 MG capsule 600 mg PO DAILY L.acidoph, paracasei,B. lactis 1 EACH capsule 1 each PO DAILY ascorbic acid (vitamin C) 1,000 MG tablet 1,000 mg PO DAILY Referrals Follow up/Referrals: Juliocesar Whitehead MD [Primary Care Provider] - See instructions Joe Green MD [Staff Physician] - See instructions (diverticular spasms, elective surgical discussions) Activity Restrictions/Add. Instructions Additional Instructions/Restrictions: Use MiraLAX daily until having 1-2 bowel movements with the consistency of toothpaste or soft serve ice cream. Call your family doctor to establish care for this visit to the emergency department and schedule follow-up within 48 hours to ensure improvement. If you have any worsening of your condition or any other concerning signs or symptoms, return to the emergency department or your primary care doctor for further evaluation. Take Tylenol 1000 mg every 6 hours (4 times daily) and ibuprofen 400 mg every 6 hours (4 times daily) as needed with food and water to prevent GI upset and kidney damage. Surgery referral information here with Dr. Green. Clinical Impressions Clinical Impressio
[2023-06-18 16:51] LABS: Troponin I < 0.01 ng/ml (0.00-0.034)
--- NOTE | 2023-06-18 16:56 | CT_ITS ---
PROCEDURE INFORMATION: Exam: CTA Abdomen and Pelvis With Contrast Exam date and time: 06/18/2023 5:16 PM Age: 83 years old Clinical indication: Abdominal pain; Localized; Left lower quadrant (llq); Additional info: Pain and anusea with eating, llq TECHNIQUE: Imaging protocol: Computed tomographic angiography of the abdomen and pelvis with contrast. Exam focused on the arteries. 3D rendering (Not supervised by radiologist): MIP and/or 3D reconstructed images were created by the technologist. Radiation optimization: All CT scans at this facility use at least one of these dose optimization techniques: automated exposure control; mA and/or kV adjustment per patient size (includes targeted exams where dose is matched to clinical indication); or iterative reconstruction. Contrast material: ISOVUE 370; Contrast volume: 100 ml; Contrast route: INTRAVENOUS (IV); REPORTING DATA: Count of CT and Cardiac NM exams in prior 12 months: This patient has received 2 known CTs and 0 known cardiac nuclear medicine studies in the 12 months prior to the current study. COMPARISON: CT ABDOMEN PELVIS W CON 06/12/2023 11:44 PM FINDINGS: Aorta: No aortic aneurysm. No aortic dissection. Celiac trunk and mesenteric arteries: No occlusion or significant stenosis. Renal arteries: No occlusion or significant stenosis. Right iliac arteries: No occlusion or significant stenosis. Left iliac arteries: No occlusion or significant stenosis. Liver: No mass. Gallbladder and bile ducts: Cholecystectomy. Pancreas: Unremarkable. No mass. No ductal dilation. Spleen: Unremarkable. No splenomegaly. Adrenal glands: Unremarkable. No mass. Kidneys and ureters: Unremarkable. No solid mass. No hydronephrosis. Stomach and bowel: Diverticulosis without diverticulitis. Appendix: No evidence of appendicitis. Intraperitoneal space: Unremarkable. No free air. No significant fluid collection. Lymph nodes: Unremarkable. No enlarged lymph nodes. Urinary bladder: Unremarkable. No mass. Reproductive: Unremarkable as visualized. Bones/joints: Bilateral total hip arthroplasty. Vacuum disc at all inter lumbar levels. Soft tissues: Unremarkable. IMPRESSION: 1. Cholecystectomy. 2. Diverticulosis without diverticulitis. 3. Bilateral total hip arthroplasty.
[2023-06-18 18:22] LABS: Microscopic, Urine URINE MICROSCOPIC (MICROSCOPIC)
[2023-06-18 18:27] LABS: Appearance,Urine CLEAR (Clear); Bilirubin,Urine Negative (Negative); Blood, Urine TRACE-I (Negative); Color,Urine YELLOW (Yellow); Glucose,Urine (UA) Negative (Negative); Ketones,Urine Negative (Negative); Leukocyte Esterase,Urine Negative (Negative); Nitrate,Urine Negative (Negative); PH,Urine 7.5 (5.0-8.5); Protein,Urine Negative (Negative); Urobilinogen,Urine 0.2 EU/dl (0.2)
[2023-06-18 18:46] LABS: RBC,Urine Occasional #/hpf (0-3); Squamous Epithelial Cell,Urine Occasional #/hpf (0-5)
[2023-06-18 20:29] LABS: Reflex Lactic Add Lactic Reflex
== END 2023-06-18 19:26 | disposition home or self-care (01) ==
LOC: UTC 15:31 → ER 16:10
PROVIDERS: Emergency Provider Emergency Medicine; PCP Family Medicine
DX: K57.30 Diverticulosis of large intestine without perforation or abscess without bleeding (principal); R10.2 Pelvic and perineal pain; I25.10 Atherosclerotic heart disease of native coronary artery without angina pectoris; I10 Essential (primary) hypertension; E78.5 Hyperlipidemia, unspecified; Z79.82 Long term (current) use of aspirin; Z79.02 Long term (current) use of antithrombotics/antiplatelets
CPT/HCPCS: 74174; 80053; 81001; 83605; 83690; 84484; 85025; 96361; 96374; 96375; 99285; J0131; Q9967

== ENCOUNTER → 2023-07-31 10:12 | Outpatient (CLI) | payer MEDICARE, BC, SELFPAY ==
[2023-08-04 12:40] LABS: Pancreatic Elastase, Fecal 103 (>200)
[2023-08-07 12:19] LABS: Calprotectin, Fecal 127 ug/g (0-120)
== END ==
PROVIDERS: PCP Family Medicine; Visit Provider Nurse Practitioner
DX: R10.10 Upper abdominal pain, unspecified (principal); R10.9 Unspecified abdominal pain; Z90.49 Acquired absence of other specified parts of digestive tract; R19.5 Other fecal abnormalities
CPT/HCPCS: 82656; 83993

== ENCOUNTER → 2023-08-03 13:30 | Outpatient (CLI) | payer MEDICARE, BC, SELFPAY | PROVIDERS: PCP Family Medicine; Visit Provider Nurse Practitioner | DX: R10.9 Unspecified abdominal pain (principal); R19.5 Other fecal abnormalities; Z90.49 Acquired absence of other specified parts of digestive tract | CPT/HCPCS: 82239 ==

== ENCOUNTER 2023-11-03 19:39 | Outpatient (CLI) | payer MEDICARE, BC, SELFPAY | END 2023-11-03 23:59 | PROVIDERS: PCP Nurse Practitioner; Visit Provider Nurse Practitioner | DX: L60.0 Ingrowing nail (principal); M79.675 Pain in left toe(s); B96.89 Other specified bacterial agents as the cause of diseases classified elsewhere | CPT/HCPCS: 87070; 87205 ==

== ENCOUNTER 2023-11-26 11:58 | Day surgery (SDC) | payer MEDICARE, BC, SELFPAY ==
[2023-11-23 08:46] VITALS: BMI 33.1
[2023-11-26 12:28] VITALS: BP 169/67; PULSE 70; RESP 18; TEMP 36.7; O2SAT 99
[2023-11-26] MEDS: LACTATED RINGERS 1000ML 1,000 ML 25 ML IV (12:40)
[2023-11-26 13:19] VITALS: O2SAT 98
--- NOTE | 2023-11-26 13:31 | P.PNANES_ITS ---
[facility] Disclaimer: The information contained in this section may have been updated after the patient was seen, as this information can be updated by other users. Medical History History of left heart catheterization (LHC) Aortic insufficiency Sinus arrest Bilateral carotid bruits Dyspnea Abnormal EKG Surgical History History of lumbar laminectomy History of laminectomy Hx of prostatectomy Hx of heart bypass surgery History of esophagogastroduodenoscopy (EGD) History of right hip replacement History of left hip replacement History of knee replacement History of tonsillectomy History of cholecystectomy Family History Other Colon cancer Dementia Social History (Updated 11/26/23 @ 12:39 by Annette Ramos RN) Smoking Status: Former smoker second hand exposure: No alcohol intake: never counseling provided: none substance use type: denies use current occupational status: retired Travel in the last 8 weeks: None household members: spouse housing: house current occupational exposures/hazards: No caffeine: Yes [facility] Anesthesia Checklist Patient Identification Patient Identification: Verbal (Name & ) Structural Data Admitted From: Home Planned Operative Procedure/s: colonoscopy Consent for Planned Operative Procedure(s) Verified: Yes Additional verifications Anesthesia Reactions: No Hx Blood Transfusions: No Blood Transfusion Reaction: Yes Airway Assessment Mallampati Score:: Class II C-Spine Mobility Assessed: Yes TMJ Mobility Assessed: Yes Dentition: Poor Dentition Neurological Assessment Level of Consciousness: Awake and Appropriate Anesthesia Plan Anesthesia Risk discussed: Yes Anesthesia Plan: Verified ASA Class: III Anesthesia Type: MAC
--- NOTE | 2023-11-26 13:38 | HMH.SCOPE ---
Procedure: Date: 11/26/23 Patient Date of :: 1940 Procedure Performed:: Diagnostic colonoscopy Indications:: Worsening Anemia, history of polyps Performing Provider:: Thu Cristobal MD Referring Provider:: Emi Cristobal APRN Sedation:: Propofol Procedure:: After placing the patient in the left lateral decubitus position, the colonoscopy was gently inserted into the rectum and under direct visualization advanced to the cecum which was identified by transillumination in the right lower quadrant, identification of the ileocecal valve, appendiceal orifice, and cecal strap. Color, texture, mucosa, and anatomy of the colon were carefully examined with the scope. Findings:: Anal canal: normal Rectum: normal Sigmoid colon: normal without polyps or inflammatory changes, diverticulosis Descending colon: normal without polyps or inflammatory changes Splenic flexure: normal Transverse colon: normal without polyps or inflammatory changes Hepatic flexure: normal Ascending colon: normal without polyps or inflammatory changes Cecum: normal Terminal ileum: not visualized Impression: Sigmoid diverticulosis, otherwise normal colonoscopy No evidence of active blood loss Anemia likely related to chronic use of anticoagulants Recommendations:: Consider capsule endoscopy evaluation if clinically indicated. Complications:: None Estimated blood obtained (mL): 0 Colonoscopy Component Colonoscopy Component Was a colonoscopy performed during today's procedure?: Yes Recommended follow up colonoscopy of at least 10 years?: No If no, follow up colonoscopy recommended in ___ years?: Not further screening exam needed Reason for not recommending >/= 10 yr follow-up interval?: Age
[2023-11-26 13:39] VITALS: BP 123/54; PULSE 74; RESP 18; TEMP 36.3; O2SAT 9
[2023-11-26 13:49] VITALS: BP 124/62; PULSE 74; RESP 17; O2SAT 97
[2023-11-26 13:59] VITALS: BP 139/76; PULSE 74; RESP 17; O2SAT 98
[2023-11-26 14:09] VITALS: BP 144/80; PULSE 74; RESP 16; TEMP 36.7; O2SAT 98
== END 2023-11-26 14:27 | disposition home or self-care (01) ==
PROVIDERS: PCP Family Medicine; Visit Provider Internal Medicine Gastroenterology
PROC: (CPT 45378; principal; 2023-11-26 13:00)
DX: D64.9 Anemia, unspecified (principal); Z86.010 Personal history of colon polyps; K57.30 Diverticulosis of large intestine without perforation or abscess without bleeding; Z79.01 Long term (current) use of anticoagulants
CPT/HCPCS: 45378

== ENCOUNTER 2023-12-21 08:37 | Outpatient (CLI) | payer MEDICARE, BC, SELFPAY ==
--- NOTE | 2023-12-21 08:38 | FL_ITS ---
FINAL REPORT CLINICAL HISTORY: eval prior to pill cam pat on Creon - pancreas meds mobility issues H/o montoya's esophagus surgery and gb removel FINDINGS: UPPER GI WITH SBFT HISTORY: Epigastric pain. Digestive problems with pancreatic insufficiency. PROCEDURE: The patient ingested barium. Effervescent crystals were also administered. Spot and overhead films were obtained. Additional barium was administered for a SBFT. Number of images: 31 Fluoro time: 4 minutes 1 second Radiation exposure in Reference air Kerma: 223.45 mGy. FINDINGS: No esophageal strictures identified. A 13 mm barium passes through the esophagus and into the stomach without delay. The esophagus is mildly dilated and tortuous with marked esophageal dysmotility and spasm. No hiatal hernia is identified. There is no gastroesophageal reflux. The rugal fold pattern of the stomach is normal. The duodenal bulb is normal. SBFT: The crane ladle person film is normal. There is no evidence of obstruction. The mucosal fold pattern is normal. The terminal ilium is normal. IMPRESSION: Mildly dilated, tortuous esophagus with marked esophageal dysmotility and spasm. Unremarkable small bowel follow-through. Films reviewed , interpreted and dictated by Dr. Pascual. Transcribed by Juan C Downing PA-C. Reviewed, Interpreted and Dictated by Keegan Pascual III, MD Transcribed by KAITLIN Ayala Authenticated and [facility]
[2023-12-21] MEDS: BARIUM SULFATE(LIQUID E-Z-PAQUE);355ML BOTTLE 355 ML PO (11:02)
[2023-12-21] MEDS: BARIUM SULFATE (E-Z-HD 340GM);135ML BOTTLE 135 ML PO (11:02)
[2023-12-21] MEDS: E-Z-GASII EFFERVESCENT GRANULES;1PK 1 EACH PO (11:03)
== END 2023-12-21 23:59 ==
LOC: RAD 08:38
PROVIDERS: PCP Family Medicine; Visit Provider Nurse Practitioner
DX: K22.719 Barrett's esophagus with dysplasia, unspecified (principal); R19.7 Diarrhea, unspecified; K91.5 Postcholecystectomy syndrome; K57.92 Diverticulitis of intestine, part unspecified, without perforation or abscess without bleeding; R10.9 Unspecified abdominal pain; R13.10 Dysphagia, unspecified
CPT/HCPCS: 74246; 74248

== ENCOUNTER 2024-01-20 11:59 | Outpatient (CLI) | payer MEDICARE, BC, SELFPAY ==
[2024-01-20 15:41] LABS: Alanine Aminotransferase 20 U/L (12-78); Albumin Level 4.1 g/dl (3.5-5.0); Albumin/Globulin Ratio 2.1 (1.1-1.8); Alkaline Phosphatase 76 U/L (38-126); Amylase 48 U/L (30-110); Anion Gap 11.3 mEq/L (5-15); Aspartate Amino Transferase 32 U/L (17-59); Bilirubin,Total 0.8 mg/dl (0.2-1.3); Blood Urea Nitrogen 8 mg/dl (9-20); Calcium 9.2 mg/dl (8.4-10.2); Carbon Dioxide 27 mmol/L (22.0-30.0); Chloride 91 mmol/L (98-107); Estimated Glomerular Filt Rate 92 ml/min (>60); GFR (African American) 112 ML/MIN (>60); Glucose 147 mg/dl (74-100); Lipase 75 U/L (23-300); Potassium 4.3 mmoL/L (3.5-5.1); Sodium 125 mmol/L (136-145); Total Protein,Serum 6.1 g/dl (6.3-8.2)
[2024-01-22 11:33] LABS: CA 19-9 11 U/mL (0-35)
== END 2024-01-20 23:59 | disposition home or self-care (01) ==
LOC: LAB 12:01
PROVIDERS: PCP Family Medicine; Visit Provider Nurse Practitioner
DX: Q45.3 Other congenital malformations of pancreas and pancreatic duct (principal); R10.32 Left lower quadrant pain; R10.9 Unspecified abdominal pain; R19.5 Other fecal abnormalities; K22.719 Barrett's esophagus with dysplasia, unspecified; Z79.899 Other long term (current) drug therapy; K86.81 Exocrine pancreatic insufficiency
CPT/HCPCS: 36415; 80053; 82150; 83690; 86301

== ENCOUNTER 2024-01-26 09:26 | Outpatient (CLI) | payer MEDICARE, BC, SELFPAY ==
--- NOTE | 2024-01-26 09:26 | CT_ITS ---
FINAL REPORT TECHNIQUE: Axial CT images of the abdomen and pelvis were obtained before and after the administration of IV contrast. Oral contrast was administered.This study was performed with techniques to keep radiation doses as low as reasonably achievable (ALARA). Individualized dose reduction techniques using automated exposure control or adjustment of mA and/or kV according to the patient''s size were employed. CLINICAL HISTORY: eval pancreas and biliary tree specfically COMPARISON: 06/18/2023 FINDINGS: Abdomen: The lung bases are clear. The heart is normal in size. There are several less than 1 cm in size hepatic cysts present. The gallbladder has been surgically resected.. The spleen is unremarkable. No adrenal masses present. The pancreas has an unremarkable appearance. The kidneys enhance normally, with a less than 1 cm in size left renal cyst.. The aorta is normal in caliber. Moderate vascular calcifications are present. There is no free fluid or adenopathy. No mass or abnormal fluid collection is seen. There are multiple fluid-filled bowel loops present, a nonspecific finding. Precontrast images demonstrate no evidence of nephrolithiasis. Pelvis: The appendix is normal in appearance. The urinary bladder is unremarkable. No inflammatory process is seen. There is no evidence of mass or adenopathy. There is no evidence of bowel obstruction. There is a left inguinal hernia containing fat. There are postoperative changes in the left SI joint and bilateral hips. Scattered diverticula are present in the colon without evidence of diverticulitis. IMPRESSION: The pancreas is unremarkable in appearance, and no evidence of biliary ductal dilatation is seen. Left inguinal hernia containing fat. Multiple fluid-filled bowel loops are present, nonspecific, but can be seen with an enteritis. Reviewed, Interpreted and Dictated by Keegan Pascual III, MD Transcribed by Aniyah Collins Authenticated and [facility]
[2024-01-26] MEDS: SODIUM CHLORIDE 0.9% 10ML SYR (RAD ONLY) 10 ML IV (10:01)
[2024-01-26] MEDS: IOPAMIDOL-370 (76%);100ML BOTTLE 75 ML IV (10:01)
== END 2024-01-26 23:59 | disposition home or self-care (01) ==
LOC: RAD 09:26
PROVIDERS: PCP Family Medicine; Visit Provider Nurse Practitioner
DX: K86.81 Exocrine pancreatic insufficiency (principal); K22.719 Barrett's esophagus with dysplasia, unspecified; R13.10 Dysphagia, unspecified; R10.9 Unspecified abdominal pain
CPT/HCPCS: 74178; Q9967

== ENCOUNTER 2024-02-18 12:48 | Day surgery (SDC) | payer MEDICARE, BC, SELFPAY ==
[2024-02-18 13:12] VITALS: BP 187/88; PULSE 61; RESP 18; TEMP 36.1; O2SAT 100; BMI 33.4
[2024-02-18] MEDS: LACTATED RINGERS 1000ML 1,000 ML 100 ML IV (13:22)
--- NOTE | 2024-02-18 13:34 | EXP.ANES.CKL ---
[facility] Disclaimer: The information contained in this section may have been updated after the patient was seen, as this information can be updated by other users. Medical History History of left heart catheterization (LHC) Aortic insufficiency Sinus arrest Bilateral carotid bruits Dyspnea Abnormal EKG Surgical History History of lumbar laminectomy History of laminectomy Hx of prostatectomy Hx of heart bypass surgery x5 History of esophagogastroduodenoscopy (EGD) Barretts esophagus History of right hip replacement History of left hip replacement History of knee replacement History of tonsillectomy History of cholecystectomy Family History Other Colon cancer Dementia Social History Smoking Status: Former smoker second hand exposure: No alcohol intake: never counseling provided: none substance use type: denies use current occupational status: retired Travel in the last 8 weeks: None household members: spouse housing: house current occupational exposures/hazards: No caffeine: Yes [facility] Anesthesia Checklist Patient Identification Patient Identification: Verbal (Name & ) Structural Data Admitted From: Home Planned Operative Procedure/s: egd Consent for Planned Operative Procedure(s) Verified: Yes NPO Status Verified Time NPO: 00:00 Additional verifications Anesthesia Reactions: No Hx Blood Transfusions: No Blood Transfusion Reaction: Yes Airway Assessment Mallampati Score:: Class II C-Spine Mobility Assessed: Yes TMJ Mobility Assessed: Yes Dentition: Poor Dentition Neurological Assessment Level of Consciousness: Awake, Alert and Appropriate Anesthesia Plan Anesthesia Risk discussed: Yes Anesthesia Plan: Verified ASA Class: III Anesthesia Type: MAC
[2024-02-18 13:43] VITALS: O2SAT 100
--- NOTE | 2024-02-18 13:55 | HMH.SCOPE ---
Procedure: Date: 02/18/24 Patient Date of :: 1940 Procedure Performed:: EGD and dilation Indications:: Dysphagia/food sticking Performing Provider:: Thu Cristobal MD Referring Provider:: Emi Cristobal APRN Sedation:: Propofol Procedure:: The gastroscope was gently passed through the incisoral orifice into the oral cavity and under direct visualization the esophagus was intubated. The endoscope was passed down the esophagus, through the stomach, and into the duodenum. Color, texture, mucosa, and anatomy of the esophagus, stomach, and duodenum were carefully examined with the scope. Findings:: Oropharynx: normal Esophagus: normal w/o obvious stricture. Treated with empiric bougie dilation with 58F dilator. EG Junction: intact at 40 cm Cardia: normal Fundus: normal Body: normal, biopsied for h.pylori Antrum: normal Duodenal bulb: normal Duodenum (second and third portion): normal Impression: Symptomatic dysphagia treated with empiric bougie dilation Specimens:: gastric Recommendations:: Repeat dilation in about 3 years or so, sooner if clinically indicated Complications:: None Estimated blood obtained (mL): 0 Colonoscopy Component Colonoscopy Component Was a colonoscopy performed during today's procedure?: No
[2024-02-18 13:58] VITALS: BP 145/73; PULSE 55; RESP 18; TEMP 36.6; O2SAT 95
[2024-02-18 14:08] VITALS: BP 131/77; PULSE 60; RESP 18; TEMP 36.6; O2SAT 99
[2024-02-18 14:18] VITALS: BP 132/85; PULSE 57; RESP 18; O2SAT 98
[2024-02-18 14:28] VITALS: BP 138/82; PULSE 99; RESP 18; O2SAT 98
== END 2024-02-18 15:08 | disposition home or self-care (01) ==
PROVIDERS: PCP Family Medicine; Visit Provider Internal Medicine Gastroenterology
PROC: 0DJ08ZZ Inspection of Upper Intestinal Tract, Via Natural or Artificial Opening Endoscopic (ICD-10-PCS; CPT 43235; principal; 2024-02-18 14:00)
DX: R13.10 Dysphagia, unspecified (principal); K31.89 Other diseases of stomach and duodenum; K29.50 Unspecified chronic gastritis without bleeding
CPT/HCPCS: 43239; 43248; 88305; J7120

== ENCOUNTER 2024-03-17 14:53 | Outpatient (POV) | payer MEDICARE, BC, SELFPAY ==
[2024-03-17 15:22] VITALS: BP 116/68; PULSE 75; RESP 18; O2SAT 98; BMI 31.4
--- NOTE | 2024-03-17 15:22 | A.OFFVIS_ITS ---
[facility] Disclaimer: The information contained in this section may have been updated after the patient was seen, as this information can be updated by other users. Medical History (Updated 03/17/24 @ 15:25 by Alyce Balderas APRN) Constipation due to opioid therapy History of left heart catheterization (LHC) Aortic insufficiency Sinus arrest Bilateral carotid bruits Dyspnea Abnormal EKG Surgical History History of lumbar laminectomy History of laminectomy Hx of prostatectomy Hx of heart bypass surgery History of esophagogastroduodenoscopy (EGD) History of right hip replacement History of left hip replacement History of knee replacement History of tonsillectomy History of cholecystectomy Family History Other Colon cancer Dementia Social History Smoking Status: Former smoker second hand exposure: No alcohol intake: never counseling provided: none substance use type: denies use current occupational status: retired Travel in the last 8 weeks: None household members: spouse housing: house current occupational exposures/hazards: No caffeine: Yes PM Subjective & Objective Subjective Subjective:: Patient is a pleasant 83-year-old female who presents today for follow-up. Today he rates his pain a 7 out of 10. Patient states he is experiencing more pain around his low back on the right side. He denies any trauma or injury that initially started from this. Patient does state that he does occasionally have falls however denies any significant injury. Patient does describe his pain as an achy, throbbing sensation that does interfere with his ability perform ADLs. Patient denies any radiating symptoms into his leg. Patient states he has been using a TENS unit at home and was recently given a muscle relaxer that did seem to help additionally. Patient states he has only used the muscle relaxer 1 time. Patient does have significant heart history and states he still sees this provider on a regular basis with no new changes. Patient was tried on compounded cream and tramadol in the past however felt like it did not provide significant relief and discontinued these medications. His Aleksander has been reviewed and is appropriate. Review of Systems: General: No recent weight changes, no fever, no sleep disturbances Respiratory: No cough, no shortness of air, no recurring pulmonary infections Cardiovascular/peripheral vascular: No chest pain, no palpitations, no edema, no shortness of breath Gastrointestinal: No new onset incontinence, normal bowel movements reported Genitourinary: No new onset incontinence Musculoskeletal: Low back pain right-sided Psychiatric: [Normal mood/affect] Neurological: [Denies weakness in extremities], [denies balance issues] Pain at rest (0-10 scale): 7 Objective Objective:: Physical Exam: General: Alert and oriented x3, no acute distress, pleasant and cooperative Lungs: Respirations even and unlabored, symmetrical chest expansion Eyes: PERRL Musculoskeletal: Flexion and extension of lumbar [spine] somewhat guarded secondary to pain, [antalgic gait noted] point tenderness right lumbar paraspinous muscles Neurological: Speech clear, no gross sensory deficit Has patient had previous pain injection?: No Conservative treatment options previously tried: Home exercise plan Length of treatment: Longer than 6 weeks Meds Home Medications and Allergies Home Medications Medication Instructions Recorded Confirmed Type venlafaxine 75 mg capsule,extended 75 mg PO DAILY mood 30 days ##30 11/02/17 03/17/24 History release 24 hr (Effexor XR) aspirin 81 mg tablet,delayed 81 mg PO DAILY Blood thinner 05/27/18 03/17/24 History release (Adult Low Dose Aspirin) L.acidoph, paracasei,B. lactis 10 1 each PO DAILY Supplement 03/23/19 03/17/24 History billion cell capsule cholecalciferol (vit D3) 1,000 1 each PO DAILY Supplement 03/23/19 03/17/24 History unit-vitamin K2 (MK4) 100 mcg tablet (K2 Plus D3) coenzyme Q10 200 mg capsule (Co 200 mg PO DAILY Supplement 03/23/19 03/17/24 History Q-10) garlic 500 mg tablet 2,000 mg PO DAILY Supplement 03/23/19 03/17/24 History omega-3 fatty acids 300 mg capsule 600 mg PO DAILY Supplement 03/23/19 03/17/24 History turmeric 400 mg capsule 400 mg PO DAILY Supplement 03/23/19 03/17/24 History tamsulosin 0.4 mg capsule (Flomax) 0.4 mg PO DAILY prostate 02/10/20 03/17/24 History ascorbic acid (vitamin C) 1,000 mg 1,000 mg PO DAILY Supplement 03/06/20 03/17/24 History tablet acetaminophen 500 mg tablet 500 mg PO Q6H PRN pain 07/03/21 03/17/24 History (Tylenol Extra Strength) magnesium oxide 500 mg capsule 500 mg PO DAILY Supplement 11/04/22 03/17/24 History melatonin 5 mg capsule 10 mg PO .COMPLEX sleep aid 11/04/22 03/17/24 History multivitamin 1 tab PO DAILY Supplement 11/04/22 03/17/24 History nitroglycerin 0.4 mg sublingual 0.4 mg sublingual Q5M PRN chest 03/05/23 03/17/24 Rx tablet pain #25 tabs fluticasone propionate 50 1 spray intranasal DAILY PRN nasal 04/16/23 03/17/24 Rx mcg/actuation nasal congestion #16 grams spray,suspension (Flonase Allergy Relief) zolpidem 10 mg tablet (Ambien) 10 mg PO HS 04/16/23 03/17/24 History polyethylene glycol 3350 17 17 g PO DAILY PRN constipation 05/14/23 03/17/24 History gram/dose oral powder (Miralax) psyllium husk 3.4 gram/5.4 gram 1 tbsp PO DAILY PRN constipation 05/14/23 03/17/24 History oral powder (Metamucil) finasteride 5 mg tablet (Proscar) 5 mg PO DAILY 07/30/23 03/17/24 History hydrochlorothiazide 12.5 mg tablet See Rx Instructions .Route 08/10/23 03/17/24 Rx .COMPLEX #180 tabs evolocumab 140 mg/mL subcutaneous See Rx Instructions .Route 09/30/23 03/17/24 Rx pen injector (Repatha SureHansick) .COMPLEX #2 mL potassium chloride 8 mEq See Rx Instructions .Route 11/11/23 03/17/24 Rx tablet,extended release .COMPLEX #90 tabs hjbano-wxmuwkwv-cjpxdnn 1 cap PO QID epi #120 caps 01/26/24 03/17/24 Rx 36,000-114,000-180,000 unit capsule,delay rel (Creon) clopidogrel 75 mg tablet (Plavix) See Rx Instructions .Route .COMPLEX 02/12/24 03/17/24 History losartan 50 mg tablet (Cozaar) See Rx Instructions .Route .COMPLEX 02/12/24 03/17/24 History pantoprazole 40 mg tablet,delayed See Rx Instructions .Route .COMPLEX 02/12/24 03/17/24 History release (Protonix) sacrosidase 8,500 unit/mL oral 2 ml PO 6XD #300 mL 02/25/24 03/17/24 Rx solution (Sucraid) gabapentin 300 mg capsule 300 mg PO Q8H 02/26/24 03/17/24 History levothyroxine 100 mcg tablet 100 mcg PO DAILY 02/26/24 03/17/24 History New Prescriptions to Start Prescriptions: Allergies Allergy/AdvReac Type Severity Reaction Status Date / Time rosuvastatin [From Crestor] Allergy Intermediate myalgias Verified 02/26/24 08:52 latex Allergy Mild Rash Verified 02/26/24 08:52 simvastatin AdvReac Intermediate Verified 02/26/24 08:52 ezetimibe [From Zetia] AdvReac Mild mylagia Verified 02/26/24 08:52 Assessment and Plan *Assessment and plan (1) Myofascial pain on right side: Status: Acute Category: Medical Code(s): M79.18 - Myalgia, other site (2) Low back pain: Status: Acute Qualifiers: Chronicity: chronic Back pain laterality: right Sciatica presence: without sciatica Qualified Code(s): M54.50 - Low back pain, unspecified; G89.29 - Other chronic pain Category: Medical Code(s): M54.50 - Low back pain, unspecified Plan Patient is experiencing significant pain along his low back at the right side. Patient had limited range of motion of his lumbar spine with point tenderness along his right lumbar paraspinous muscles. I did discuss with the patient that he may benefit from trigger point injections to this location. Risk and benefits were discussed with patient and he would like to proceed forward with this plan of care. Patient is not able to tolerate current physical therapy due to his comorbidities. We will submit to insurance for trigger point injections of the right lumbar paraspinous muscles. We will not be using any fluoroscopy or ultrasound for these injections. Patient has been instructed to contact the clinic with any concerns before the next appointment. Dr. Belle has reviewed this note and agrees with this plan of care. This note was dictated using voice recognition software and make contain errors or omissions.
== END 2024-03-17 23:59 | disposition home or self-care (01) ==
LOC: SC.PAIN 14:53
PROVIDERS: PCP Family Medicine; Visit Provider Nurse Practitioner Family
DX: M54.50 Low back pain, unspecified; G89.29 Other chronic pain
CPT/HCPCS: 99212; G0463

== ENCOUNTER 2024-04-05 11:22 | Day surgery (SDC) | payer MEDICARE, BC, SELFPAY ==
[2024-04-05 11:35] VITALS: BP 156/82; PULSE 68; RESP 18; TEMP 36.4; O2SAT 98; BMI 31.9
--- NOTE | 2024-04-05 11:48 | EXP.PAIN.PRO ---
Procedure Date: 04/05/24 Time: 11:35 Anesthesiologist:: Shai Liu CRNA Complications:: None Pre-procedure Diagnosis:: Myofascial pain right lumbar paraspinous muscle. Post-procedure Diagnosis:: Same. Indications for Procedure:: Patient is a pleasant 83-year-old male comes to clinic today for trigger point injection of the right lumbar paraspinous muscle. Patient describes the right low lumbar back pain as constant, dull, aching. Flexion and extension increases the pain significantly. He rates his pain 7/10. Procedure Details:: Patient placed his finger on the area of pain. I made a marker at that area. Using a 25-gauge inch and half needle a 10 cc solution of 1% lidocaine +0.25% Marcaine and 40 mg Depo-Medrol was injected intermittently in a fanning fashion along the right lumbar paraspinous muscle. Patient tolerated procedure without difficulty. There are no complications. Plan and Disposition:: Patient was discharged without incident.
[2024-04-05 12:00] VITALS: BP 131/77; PULSE 58; RESP 18; O2SAT 98
[2024-04-05] MEDS: methylPREDNISolone ACETATE 80MG/ML VIAL 80 MG (12:12)
[2024-04-05] MEDS: LIDOCAINE 1% 5ML PF VIAL 5 ML (12:14)
[2024-04-05] MEDS: BUPIVACAINE 0.25% 10ML INJ 25 MG IJ (12:14)
[2024-04-05 12:16] VITALS: BP 147/74; PULSE 71; RESP 18; O2SAT 98
[2024-04-05 12:19] VITALS: BP 147/74; PULSE 71; RESP 18; O2SAT 98
== END 2024-04-05 12:01 | disposition home or self-care (01) ==
PROVIDERS: PCP Family Medicine; Visit Provider Nurse Anesthetist, Certified Registered
DX: M79.18 Myalgia, other site (principal)
CPT/HCPCS: 20552; J1010

== ENCOUNTER 2024-05-11 10:24 | Outpatient (POV) | payer MEDICARE, BC, SELFPAY ==
--- NOTE | 2024-05-11 10:42 | EXP.PAIN.SOA ---
[facility] Disclaimer: The information contained in this section may have been updated after the patient was seen, as this information can be updated by other users. Medical History Constipation due to opioid therapy History of left heart catheterization (LHC) Aortic insufficiency Sinus arrest Bilateral carotid bruits Dyspnea Abnormal EKG Surgical History History of lumbar laminectomy History of laminectomy Hx of prostatectomy Hx of heart bypass surgery History of esophagogastroduodenoscopy (EGD) History of right hip replacement History of left hip replacement History of knee replacement History of tonsillectomy History of cholecystectomy Family History Other Colon cancer Dementia Social History Smoking Status: Former smoker second hand exposure: No alcohol intake: never counseling provided: none substance use type: denies use current occupational status: retired Travel in the last 8 weeks: None household members: spouse housing: house current occupational exposures/hazards: No caffeine: Yes PM Subjective & Objective Subjective Subjective:: Patient is a pleasant 83-year-old female who presents today for follow-up of right lumbar paraspinous trigger point injections. Today he rates his pain a 5 out of 10. Patient denies any new trauma or injury. He does state that he felt like where he got the injections that some of his pain was even lower. Today he does state that the pain is better and not really bothering him as much. Patient has been prescribed compounded cream in the past as well as tramadol with minimal relief. Patient also states that in the past he did try and get the lidocaine 5% patches however it was not covered by his insurance and the [id number] ones did not seem to make much improvement. His Aleksadner has been reviewed and is appropriate. Review of Systems: General: No recent weight changes, no fever, no sleep disturbances Respiratory: No cough, no shortness of air, no recurring pulmonary infections Cardiovascular/peripheral vascular: No chest pain, no palpitations, no edema, no shortness of breath Gastrointestinal: No new onset incontinence, normal bowel movements reported Genitourinary: No new onset incontinence Musculoskeletal: Low back pain Psychiatric: [Normal mood/affect] Neurological: [Denies weakness in extremities], [denies balance issues] Pain at rest (0-10 scale): 5 Objective Objective:: Physical Exam: General: Alert and oriented x3, no acute distress, pleasant and cooperative Lungs: Respirations even and unlabored, symmetrical chest expansion Eyes: PERRL Musculoskeletal: Flexion and extension of lumbar [spine] somewhat guarded secondary to pain, [antalgic gait noted] Neurological: Speech clear, no gross sensory deficit Has patient had previous pain injection?: Yes Percent improvement in pain since last injection: Somewhat Conservative treatment options previously tried: Home exercise plan Length of treatment: Longer than 6 weeks Meds Home Medications and Allergies Home Medications ?Medication ?Instructions ?Recorded ?Confirmed ?Type venlafaxine 75 mg capsule,extended 75 mg PO DAILY mood 30 days ##30 11/02/17 03/17/24 History release 24 hr (Effexor XR) aspirin 81 mg tablet,delayed 81 mg PO DAILY Blood thinner 05/27/18 03/17/24 History release (Adult Low Dose Aspirin) L.acidoph, paracasei,B. lactis 10 1 each PO DAILY Supplement 03/23/19 03/17/24 History billion cell capsule cholecalciferol (vit D3) 1,000 1 each PO DAILY Supplement 03/23/19 03/17/24 History unit-vitamin K2 (MK4) 100 mcg tablet (K2 Plus D3) coenzyme Q10 200 mg capsule (Co 200 mg PO DAILY Supplement 03/23/19 03/17/24 History Q-10) garlic 500 mg tablet 2,000 mg PO DAILY Supplement 03/23/19 03/17/24 History omega-3 fatty acids 300 mg capsule 600 mg PO DAILY Supplement 03/23/19 03/17/24 History turmeric 400 mg capsule 400 mg PO DAILY Supplement 03/23/19 03/17/24 History tamsulosin 0.4 mg capsule (Flomax) 0.4 mg PO DAILY prostate 02/10/20 03/17/24 History ascorbic acid (vitamin C) 1,000 mg 1,000 mg PO DAILY Supplement 03/06/20 03/17/24 History tablet acetaminophen 500 mg tablet 500 mg PO Q6H PRN pain 07/03/21 03/17/24 History (Tylenol Extra Strength) magnesium oxide 500 mg capsule 500 mg PO DAILY Supplement 11/04/22 03/17/24 History melatonin 5 mg capsule 10 mg PO .COMPLEX sleep aid 11/04/22 03/17/24 History multivitamin 1 tab PO DAILY Supplement 11/04/22 03/17/24 History nitroglycerin 0.4 mg sublingual 0.4 mg sublingual Q5M PRN chest 03/05/23 03/17/24 Rx tablet pain #25 tabs fluticasone propionate 50 1 spray intranasal DAILY PRN nasal 04/16/23 03/17/24 Rx mcg/actuation nasal congestion #16 grams spray,suspension (Flonase Allergy Relief) zolpidem 10 mg tablet (Ambien) 10 mg PO HS 04/16/23 03/17/24 History polyethylene glycol 3350 17 17 g PO DAILY PRN constipation 05/14/23 03/17/24 History gram/dose oral powder (Miralax) psyllium husk 3.4 gram/5.4 gram 1 tbsp PO DAILY PRN constipation 05/14/23 03/17/24 History oral powder (Metamucil) finasteride 5 mg tablet (Proscar) 5 mg PO DAILY 07/30/23 03/17/24 History hydrochlorothiazide 12.5 mg tablet See Rx Instructions .Route 08/10/23 03/17/24 Rx .COMPLEX #180 tabs potassium chloride 8 mEq See Rx Instructions .Route 11/11/23 03/17/24 Rx tablet,extended release .COMPLEX #90 tabs clopidogrel 75 mg tablet (Plavix) See Rx Instructions .Route .COMPLEX 02/12/24 03/17/24 History losartan 50 mg tablet (Cozaar) See Rx Instructions .Route .COMPLEX 02/12/24 03/17/24 History pantoprazole 40 mg tablet,delayed See Rx Instructions .Route .COMPLEX 02/12/24 03/17/24 History release (Protonix) sacrosidase 8,500 unit/mL oral 2 ml PO 6XD #300 mL 02/25/24 03/17/24 Rx solution (Sucraid) gabapentin 300 mg capsule 300 mg PO Q8H 02/26/24 03/17/24 History levothyroxine 100 mcg tablet 100 mcg PO DAILY 02/26/24 03/17/24 History evolocumab 140 mg/mL subcutaneous See Rx Instructions .Route 07/08/24 Rx pen injector (Repatha SureHansick) .COMPLEX #2 mL krlmgy-vbzrnsbm-[id number] 1 cap PO QID epi #120 caps 04/25/24 Rx 36,000-114,000-180,000 unit capsule,delay rel (Creon) New Prescriptions to Start Prescriptions: Allergies Allergy/AdvReac Type Severity Reaction Status Date / Time rosuvastatin [From Crestor] Allergy Intermediate myalgias Verified 02/26/24 08:52 latex Allergy Mild Rash Verified 02/26/24 08:52 simvastatin AdvReac Intermediate Verified 02/26/24 08:52 ezetimibe [From Zetia] AdvReac Mild mylagia Verified 02/26/24 08:52 Assessment and Plan *Assessment and plan (1) Myofascial pain on right side: Status: Acute Category: Medical Code(s): M79.18 - Myalgia, other site (2) Low back pain: Status: Acute Qualifiers: Chronicity: chronic Back pain laterality: right Sciatica presence: without sciatica Qualified Code(s): M54.50 - Low back pain, unspecified; G89.29 - Other chronic pain Category: Medical Code(s): M54.50 - Low back pain, unspecified Plan Patient does continue to have some pain throughout his low back that is always more prominent on the right side. We did discuss that he has had hip replacement and feels like some of his pain may be related to his legs not being aligned exactly the same. I did discuss with the patient that he can try shoe inserts just on the side that he feels like is lower and see if this does improve some of the overall back pain symptoms. I will send in a prescription of Salonpas patches and have the patient follow back up in clinic in 1 month for reevaluation of symptoms and plan of care. Patient has been instructed to contact the clinic with any concerns before the next appointment. Dr. Belle has reviewed this note and agrees with this plan of care. This note was dictated using voice recognition software and make contain errors or omissions. All injections are used with Lidocaine or Bupivacaine and Depo Medrol.
[2024-05-11 11:07] VITALS: BP 147/86; PULSE 60; RESP 18; O2SAT 98; BMI 31.9
== END 2024-05-11 23:59 | disposition home or self-care (01) ==
PROVIDERS: PCP Family Medicine; Visit Provider Nurse Practitioner Family
DX: M79.18 Myalgia, other site (principal); M54.50 Low back pain, unspecified; G89.29 Other chronic pain; Z95.5 Presence of coronary angioplasty implant and graft; Z87.891 Personal history of nicotine dependence; Z79.899 Other long term (current) drug therapy
CPT/HCPCS: 99212; G0463

== ENCOUNTER 2024-05-31 14:27 | Outpatient (CLI) | payer MEDICARE, BC, SELFPAY ==
[2024-05-31 15:24] LABS: Basophils % 0.5 % (0.1-2.0); Eosinophils # 0.2 K/mm3 (0.0-0.4); Eosinophils % 3.9 % (0.1-12.0); Hematocrit 41.6 % (42.0-52.0); Hemoglobin 13.4 g/dL (14.1-18.0); Lymphocytes # 0.9 K/mm3 (0.7-4.5); Lymphocytes % 16.2 % (10-50); Mean Corpuscular HGB Conc 32.3 g/dL (31.8-35.4); Mean Corpuscular Hemoglobin 32.2 pg (27.0-31.2); Mean Corpuscular Volume 99.8 fl (80-94); Monocytes # 0.4 K/mm3 (0.1-1.0); Monocytes % 6.6 % (1.7-9.3); Neutrophils # 3.8 K/mm3 (1.8-7.8); Neutrophils % 72.8 % (37.0-80.0); Platelet Count 216 K/mm3 (142-424); Red Blood Count 4.17 M/mm3 (4.60-6.20); Red Cell Distribution Width 14.6 % (11.5-17.5); White Blood Count 5.3 K/mm3 (4.8-10.8)
[2024-05-31 15:49] LABS: Alanine Aminotransferase 29 U/L (12-78); Albumin Level 3.7 g/dl (3.5-5.0); Alkaline Phosphatase 63 U/L (38-126); Anion Gap 6.8 mEq/L (5-15); Aspartate Amino Transferase 30 U/L (17-59); Bilirubin,Direct 0.2 mg/dl (0.0-0.4); Bilirubin,Indirect 0.4 mg/dL (0.0-0.9); Bilirubin,Total 0.6 mg/dl (0.2-1.3); Bilirubin,Unconjugated 0.4 mg/dL (0.0-1.1); Blood Urea Nitrogen 7 mg/dl (9-20); Calcium 9.4 mg/dl (8.4-10.2); Carbon Dioxide 31 mmol/L (22.0-30.0); Chloride 96 mmol/L (98-107); Chol/HDL Ratio 2.4 (1-3.5); Cholesterol 156 mg/dl (140-200); Estimated Glomerular Filt Rate 107 ml/min (>60); GFR (African American) 130 ML/MIN (>60); Glucose 101 mg/dl (74-100); HDL Cholesterol 66 mg/dl (40-60); Potassium 4.8 mmoL/L (3.5-5.1); Sodium 129 mmol/L (136-145); Total Protein,Serum 6.2 g/dl (6.3-8.2); Triglycerides 92 mg/dl (30-150); VLDL Cholesterol 18 mg/dL (0-40)
[2024-05-31 16:00] LABS: Direct LDL Cholesterol 54.82 mg/dL (100-129)
[2024-05-31 16:04] LABS: Free T4 (Free Thyroxine) 1.03 ng/dl (0.78-2.19)
[2024-05-31 16:18] LABS: Thyroid Stimulating Hormone 0.22 uIU/mL (0.465-4.68)
== END 2024-05-31 23:59 | disposition home or self-care (01) ==
LOC: LAB 14:32
PROVIDERS: PCP Family Medicine; Visit Provider Nurse Practitioner
DX: K86.81 Exocrine pancreatic insufficiency (principal); Z86.39 Personal history of other endocrine, nutritional and metabolic disease; R25.2 Cramp and spasm; E83.10 Disorder of iron metabolism, unspecified; I65.23 Occlusion and stenosis of bilateral carotid arteries; I25.10 Atherosclerotic heart disease of native coronary artery without angina pectoris; I10 Essential (primary) hypertension; E78.2 Mixed hyperlipidemia; I42.8 Other cardiomyopathies; R06.00 Dyspnea, unspecified
CPT/HCPCS: 36415; 80048; 80061; 80076; 84439; 84443; 85025

== ENCOUNTER 2024-06-09 15:20 | Outpatient (POV) | payer MEDICARE, BC, SELFPAY ==
[2024-06-09 15:27] VITALS: BP 119/82; PULSE 78; RESP 16; O2SAT 97; BMI 31.4
--- NOTE | 2024-06-09 16:01 | EXP.PAIN.SOA ---
[facility] Disclaimer: The information contained in this section may have been updated after the patient was seen, as this information can be updated by other users. Medical History Constipation due to opioid therapy History of left heart catheterization (LHC) Aortic insufficiency Sinus arrest Bilateral carotid bruits Dyspnea Abnormal EKG Surgical History History of lumbar laminectomy History of laminectomy Hx of prostatectomy Hx of heart bypass surgery x5 History of esophagogastroduodenoscopy (EGD) Barretts esophagus History of right hip replacement History of left hip replacement History of knee replacement History of tonsillectomy History of cholecystectomy Family History Other Colon cancer Dementia Social History Smoking Status: Former smoker second hand exposure: No alcohol intake: never counseling provided: none substance use type: denies use current occupational status: other Travel in the last 8 weeks: None household members: spouse housing: house current occupational exposures/hazards: No caffeine: Yes PM Subjective & Objective Subjective Subjective:: Male who presents today for follow-up. Today he rates his pain a 7 out of 10. He denies any new trauma or injury. He does state that he continues to still have pain more so along the right low back into and around his muscles as well as peripheral neuropathy related to his diabetes. He denies any new injury or trauma. Patient has had trigger point injections past and that they did help some however were very temporary. Patient has tried Salonpas patches with minimal relief and his insurance did not approve the lidocaine 5% patches. Patient does state he did try the compounded cream in the past as well as tramadol however it was only minimal relief. His Aleksander has been reviewed and is appropriate. Review of Systems: General: No recent weight changes, no fever, no sleep disturbances Respiratory: No cough, no shortness of air, no recurring pulmonary infections Cardiovascular/peripheral vascular: No chest pain, no palpitations, no edema, no shortness of breath Gastrointestinal: No new onset incontinence, normal bowel movements reported Genitourinary: No new onset incontinence Musculoskeletal: Low back pain, feet pain Psychiatric: [Normal mood/affect] Neurological: [Denies weakness in extremities], [denies balance issues] Pain at rest (0-10 scale): 7 Objective Objective:: Physical Exam: General: Alert and oriented x3, no acute distress, pleasant and cooperative Lungs: Respirations even and unlabored, symmetrical chest expansion Eyes: PERRL Musculoskeletal: Flexion and extension of lumbar [spine] somewhat guarded secondary to pain, [antalgic gait noted] Neurological: Speech clear, no gross sensory deficit Has patient had previous pain injection?: No Conservative treatment options previously tried: Home exercise plan Length of treatment: Longer than 6 weeks Meds Home Medications and Allergies Home Medications ?Medication ?Instructions ?Recorded ?Confirmed ?Type venlafaxine 75 mg capsule,extended 75 mg PO DAILY mood 30 days ##30 11/02/17 06/09/24 History release 24 hr (Effexor XR) aspirin 81 mg tablet,delayed 81 mg PO DAILY Blood thinner 05/27/18 06/09/24 History release (Adult Low Dose Aspirin) tamsulosin 0.4 mg capsule (Flomax) 0.4 mg PO DAILY prostate 02/10/20 06/09/24 History acetaminophen 500 mg tablet 500 mg PO Q6H PRN pain 07/03/21 06/09/24 History (Tylenol Extra Strength) melatonin 5 mg capsule 10 mg PO .COMPLEX sleep aid 11/04/22 06/09/24 History nitroglycerin 0.4 mg sublingual 0.4 mg sublingual Q5M PRN chest 03/05/23 06/09/24 Rx tablet pain #25 tabs fluticasone propionate 50 1 spray intranasal DAILY PRN nasal 04/16/23 06/09/24 Rx mcg/actuation nasal congestion #16 grams spray,suspension (Flonase Allergy Relief) polyethylene glycol 3350 17 17 g PO DAILY PRN constipation 05/14/23 06/09/24 History gram/dose oral powder (Miralax) psyllium husk 3.4 gram/5.4 gram 1 tbsp PO DAILY PRN constipation 05/14/23 06/09/24 History oral powder (Metamucil) finasteride 5 mg tablet (Proscar) 5 mg PO DAILY 07/30/23 06/09/24 History hydrochlorothiazide 12.5 mg tablet See Rx Instructions .Route 08/10/23 06/09/24 Rx .COMPLEX #180 tabs clopidogrel 75 mg tablet (Plavix) See Rx Instructions .Route .COMPLEX 02/12/24 06/09/24 History pantoprazole 40 mg tablet,delayed See Rx Instructions .Route .COMPLEX 02/12/24 06/09/24 History release (Protonix) sacrosidase 8,500 unit/mL oral 2 ml PO 6XD #300 mL 02/25/24 06/09/24 Rx solution (Sucraid) gabapentin 300 mg capsule 300 mg PO Q8H 02/26/24 06/09/24 History levothyroxine 100 mcg tablet 100 mcg PO DAILY 02/26/24 06/09/24 History evolocumab 140 mg/mL subcutaneous See Rx Instructions .Route 03/28/24 06/09/24 Rx pen injector (Repatha SureClick) .COMPLEX #2 mL [id number] 1 cap PO QID epi #120 caps 04/25/24 06/09/24 Rx 36,000-114,000-180,000 unit capsule,delay rel (Creon) alprazolam 0.25 mg tablet 0.25 mg PO TID PRN Anxiety 05/31/24 06/09/24 History potassium chloride 8 mEq 16 meq PO BID 05/31/24 06/09/24 History tablet,extended release New Prescriptions to Start Prescriptions: Allergies Allergy/AdvReac Type Severity Reaction Status Date / Time rosuvastatin [From Crestor] Allergy Intermediate myalgias Verified 06/09/24 15:44 latex Allergy Mild Rash Verified 06/09/24 15:44 simvastatin AdvReac Intermediate Unknown Verified 06/09/24 15:44 allergy reaction ezetimibe [From Zetia] AdvReac Mild mylagia Verified 06/09/24 15:44 Assessment and Plan *Assessment and plan (1) Low back pain: Status: Acute Qualifiers: Chronicity: chronic Back pain laterality: right Sciatica presence: without sciatica Qualified Code(s): M54.50 - Low back pain, unspecified; G89.29 - Other chronic pain Category: Medical Code(s): M54.50 - Low back pain, unspecified Plan I did discuss with the patient due to that that injections only give temporary relief it may be beneficial for us to try a different version of compounded cream. Patient is agreeable to this option. I did apprise counselor him that he can use this on his low back and feet and that we will follow-up with him in 1 month to see how he does with this. Patient is agreeable to this. Patient has been instructed to contact the clinic with any concerns before the next appointment. Dr. Belle has reviewed this note and agrees with this plan of care. This note was dictated using voice recognition software and make contain errors or omissions. All injections are used with Lidocaine or Bupivacaine and Depo Medrol.
== END 2024-06-09 23:59 | disposition home or self-care (01) ==
LOC: SC.PAIN 15:23
PROVIDERS: PCP Family Medicine; Visit Provider Nurse Practitioner Family
DX: M54.50 Low back pain, unspecified (principal); G89.29 Other chronic pain; Z95.5 Presence of coronary angioplasty implant and graft; Z79.899 Other long term (current) drug therapy; Z96.643 Presence of artificial hip joint, bilateral; Z96.659 Presence of unspecified artificial knee joint
CPT/HCPCS: 99212; G0463

== ENCOUNTER 2024-06-11 13:54 | Emergency (ER) | payer MEDICARE, BC, SELFPAY ==
[2024-06-11 14:15] VITALS: BP 111/63; PULSE 86; RESP 18; TEMP 36.7; O2SAT 98; BMI 31.4
--- NOTE | 2024-06-11 14:15 | XR_ITS ---
PROCEDURE INFORMATION: Exam: XR Left Ribs with PA Chest Exam date and time: 06/11/2024 2:12 PM Age: 84 years old Clinical indication: Injury or trauma; Fall; Rib area, left side; Blunt trauma TECHNIQUE: Imaging protocol: Radiologic exam of the left ribs with PA chest. Views: 3 views COMPARISON: CR XR CHEST 2V 05/07/2021 8:51 PM FINDINGS: Lungs: Unremarkable. No consolidation. Pleural spaces: Small left pleural effusion Heart/Mediastinum: Unremarkable. No cardiomegaly. Bones/joints: Median sternotomy. There is no evidence of acute rib fracture IMPRESSION: No definite rib fracture identified.
--- NOTE | 2024-06-11 14:40 | EXP.UTC ---
Discharge Plan Disposition Patient Disposition: Home, Self-Care Condition: Good Prescriptions Prescriptions: No Action acetaminophen [Tylenol Extra Strength] 500 mg tablet 500 mg PO Q6H PRN (Reason: pain) melatonin 5 mg capsule 10 mg PO .COMPLEX Rx Instructions: 10 mg orally HS; polyethylene glycol 3350 [Miralax] 17 gram/dose powder 17 g PO DAILY PRN (Reason: constipation) Metamucil 3.4 gram/5.4 gram powder 1 tbsp PO DAILY PRN (Reason: constipation) Rx Instructions: mix into at least 8 oz of water or juice before administering nitroglycerin 0.4 mg tablet, sublingual 0.4 mg sublingual Q5M PRN (Reason: chest pain) Qty: 25 0RF Rx Instructions: do not exceed 3 doses per episode finasteride [Proscar] 5 mg tablet 5 mg PO DAILY levothyroxine 100 mcg tablet 100 mcg PO DAILY Patient Comments: TAKE ONE TABLET BY MOUTH EVERY MORNING ON an EMPTY stomach gabapentin 300 mg capsule 300 mg PO Q8H Patient Comments: TAKE ONE CAPSULE BY MOUTH EVERY 8 HOURS MAY CAUSE DROWSINESS alprazolam 0.25 mg tablet 0.25 mg PO TID PRN (Reason: Anxiety) Patient Comments: TAKE ONE TABLET BY MOUTH THREE TIMES DAILY MAY CAUSE DROWSINESS potassium chloride 8 mEq tablet extended release 16 meq PO BID venlafaxine [Effexor XR] 75 mg capsule,extended release 24hr 75 mg PO DAILY 30 Days Qty: 30 Patient Comments: aspirin [Adult Low Dose Aspirin] 81 mg tablet,delayed release (DR/EC) 81 mg PO DAILY tamsulosin [Flomax] 0.4 mg capsule 0.4 mg PO DAILY fluticasone propionate [Flonase Allergy Relief] 50 mcg/actuation spray,suspension 1 spray intranasal DAILY PRN (Reason: nasal congestion) Qty: 16 0RF Rx Instructions: administer into each nostril hydrochlorothiazide 12.5 mg tablet See Rx Instructions .ROUTE .COMPLEX Qty: 180 4RF Dose Instruction: TAKE 1 TABLET BY MOUTH ONCE DAILY Rx Instructions: TAKE 1 TABLET BY MOUTH ONCE DAILY Sucraid 8,500 unit/mL solution 2 ml PO 6XD Qty: 300 4RF Rx Instructions: Take 2 ml by mouth with every meal or snack up to six times daily. Repatha SureClick 140 mg/mL pen injector See Rx Instructions .ROUTE .COMPLEX Qty: 2 2RF Dose Instruction: INJECT 140 MG SUBCUTANEOUSLY EVERY 2 WEEKS Rx Instructions: INJECT 140 MG SUBCUTANEOUSLY EVERY 2 WEEKS Creon 36,000-114,000- 180,000 unit capsule,delayed release(DR/EC) 1 cap PO QID Qty: 120 2RF Rx Instructions: administer with meals and/or snacks clopidogrel [Plavix] 75 mg tablet See Rx Instructions .ROUTE .COMPLEX Rx Instructions: TAKE ONE TABLET BY MOUTH EVERY DAY pantoprazole [Protonix] 40 mg tablet,delayed release (DR/EC) See Rx Instructions .ROUTE .COMPLEX Rx Instructions: TAKE 1 TABLET BY MOUTH ONCE DAILY Referrals Follow up/Referrals: Juliocesar Whitehead MD [Primary Care Provider] - See instructions Activity Restrictions/Add. Instructions Additional Instructions/Restrictions: Go home and rest. It would be best if you rested for the next few days. No heavy lifting. No twisting. Use the incentive spirometer as directed for the next 2 weeks. Follow up with your regular doctor. GO TO THE ER FOR ANY WORSENING SYMPTOMS OR CONCERN, ESPECIALLY BOWEL OR BLADDER ISSUES, SADDLE AREA NUMBNESS, FEVER, ETC Clinical Impressions Clinical Impression: Contusion of rib on left side, Rib pain on left side, Fall Instructions Patient Instructions: How to Use an Incentive Spirometer, DI for Rib Contusion Print Language Print Language: Malian Discharge ED Provider: Kip Powell [facility] General Stated complaint: AO-Fall 06/09, Pain in L rib cage Mode of Arrival: Ambulatory Source of Information: Patient Limitations: No Limitations Time Seen by Provider: 06/11/24 14:23 Description of Symptoms (Recalled from Triage Doc. by RN): Reports falling on injuringhis left side of his ribs. Complaint of pain and pain with breathing. HEENT Symptoms (Recalled from RN notes): No Resp Symptoms (Recalled from RN notes): No Skin Symptoms (Recalled from RN notes): No MS Symptoms (Recalled from RN notes): Yes Functional Status (Recalled from RN notes): wnl History of Present Illness Provider Complaint: He states that he slipped on his floor and hit his left rib area against a chair 2 days ago. Since then he has had left rib pain that is worse with coughing and moving. He denies shortness of breath. Related Data Home Medications ?Medication ?Instructions ?Recorded ?Confirmed venlafaxine 75 mg capsule,extended 75 mg PO DAILY mood 30 days ##30 11/02/17 06/09/24 release 24 hr (Effexor XR) aspirin 81 mg tablet,delayed 81 mg PO DAILY Blood thinner 05/27/18 06/09/24 release (Adult Low Dose Aspirin) tamsulosin 0.4 mg capsule (Flomax) 0.4 mg PO DAILY prostate 02/10/20 06/09/24 acetaminophen 500 mg tablet 500 mg PO Q6H PRN pain 07/03/21 06/09/24 (Tylenol Extra Strength) melatonin 5 mg capsule 10 mg PO .COMPLEX sleep aid 11/04/22 06/09/24 polyethylene glycol 3350 17 17 g PO DAILY PRN constipation 05/14/23 06/09/24 gram/dose oral powder (Miralax) psyllium husk 3.4 gram/5.4 gram 1 tbsp PO DAILY PRN constipation 05/14/23 06/09/24 oral powder (Metamucil) finasteride 5 mg tablet (Proscar) 5 mg PO DAILY 07/30/23 06/09/24 clopidogrel 75 mg tablet (Plavix) See Rx Instructions .Route .COMPLEX 02/12/24 06/09/24 pantoprazole 40 mg tablet,delayed See Rx Instructions .Route .COMPLEX 02/12/24 06/09/24 release (Protonix) gabapentin 300 mg capsule 300 mg PO Q8H 02/26/24 06/09/24 levothyroxine 100 mcg tablet 100 mcg PO DAILY 02/26/24 06/09/24 alprazolam 0.25 mg tablet 0.25 mg PO TID PRN Anxiety 05/31/24 06/09/24 potassium chloride 8 mEq 16 meq PO BID 05/31/24 06/09/24 tablet,extended release Previous Rx's ?Medication ?Instructions ?Recorded nitroglycerin 0.4 mg sublingual 0.4 mg sublingual Q5M PRN chest 03/05/23 tablet pain #25 tabs fluticasone propionate 50 1 spray intranasal DAILY PRN nasal 04/16/23 mcg/actuation nasal congestion #16 grams spray,suspension (Flonase Allergy Relief) hydrochlorothiazide 12.5 mg tablet See Rx Instructions .Route 08/10/23 .COMPLEX #180 tabs sacrosidase 8,500 unit/mL oral 2 ml PO 6XD #300 mL 02/25/24 solution (Sucraid) evolocumab 140 mg/mL subcutaneous See Rx Instructions .Route 03/28/24 pen injector (Repjudaha SureHansick) .COMPLEX #2 mL [id number]-kvbofsi 1 cap PO QID epi #120 caps 04/25/24 36,000-114,000-180,000 unit capsule,delay rel (Creon) Allergies Allergy/AdvReac Type Severity Reaction Status Date / Time rosuvastatin [From Crestor] Allergy Intermediate myalgias Verified 06/09/24 15:44 latex Allergy Mild Rash Verified 06/09/24 15:44 simvastatin AdvReac Intermediate Unknown Verified 06/09/24 15:44 allergy reaction ezetimibe [From Zetia] AdvReac Mild mylagia Verified 06/09/24 15:44 Worker's Comp Is this a Worker's Comp case?: No [facility] Disclaimer: The information contained in this section may have been updated after the patient was seen, as this information can be updated by other users. Medical History Constipation due to opioid therapy History of left heart catheterization (LHC) Aortic insufficiency Sinus arrest Bilateral carotid bruits Dyspnea Abnormal EKG Surgical History History of lumbar laminectomy History of laminectomy Hx of prostatectomy Hx of heart bypass surgery x5 History of esophagogastroduodenoscopy (EGD) Barretts esophagus History of right hip replacement History of left hip replacement History of knee replacement History of tonsillectomy History of cholecystectomy Family History Other Colon cancer Dementia Social History Smoking Status: Former smoker second hand exposure: No alcohol intake: never counseling provided: none substance use type: denies use current occupational status: other Travel in the last 8 weeks: None household members: spouse housing: house current occupational exposures/hazards: No caffeine: Yes ROS Obtained: Yes All systems reviewed & no additional complaints except as documented Constitutional Constitutional: Denies chills and Denies fever(s) Eyes Eyes: Denies eye discharge ENT Ears, Nose, Mouth, and Throat: Denies dizziness, Denies otalgia and Denies sore throat Cardiovascular Cardiovascular: Denies chest pain Respiratory Respiratory: Denies shortness of breath, Denies chest congestion, Denies cough, Denies stridor and Denies wheezing Gastrointestinal Gastrointestingal: Denies nausea or vomiting Musculoskeletal Musculoskeletal: Reports system reviewed and no additional complaints, except as documented and Denies arthralgias Integumentary/Breasts Skin/Breast: Denies rash Neurologic Neurologic: Denies dizziness and Denies paresthesias Allergic/Immunologic Allergic/Immunologic: Denies wheezing Physical Exam General General appearance: alert and in no apparent distress Head Head exam: atraumatic, normocephalic and normal inspection Eye Eye exam: Present normal appearance, PERRL and EOMI ENT ENT exam: Present normal exam, normal oropharynx, mucous membranes moist, TM's normal bilaterally and normal external ear exam Neck Neck exam: Present normal inspection, full ROM and trachea midline; Absent meningismus or lymphadenopathy Chest Chest inspection: Present symmetric chest wall rise and tenderness Respiratory Respiratory exam: Present normal lung sounds bilaterally; Absent respiratory distress Cardiovascular Cardiovascular exam: Present regular rate and normal rhythm; Absent JVD Abdominal Exam Abdominal exam: Present soft and normal bowel sounds; Absent distention, tenderness or guarding Extremities Exam Extremities exam: Present normal inspection, full ROM and normal capillary refill; Absent calf tenderness Back Exam Back exam: Present normal inspection; Absent tenderness Neurological Exam Neurological exam: Present alert and oriented X3 Psychiatric Psychiatric exam: Present normal affect and normal mood Skin Skin exam: Present warm, dry, intact and normal color Lymphatic Lymphatic Findings: no adenopathy Medical Decision Making Medical Records Medical records reviewed: No I reviewed the patient's medical records. Screening: Per USPSTF and CDC recommendations, given the prevalence of disease in our region, it is our hospital?s policy to screen for HIV and viral Hepatitis for all patients aged 18 and over and those with ongoing risk factors. Aleksander Inquiry Pt receiving controlled substance: No Vital Signs: 06/11/24 14:15 Temperature 98.1 F Temperature Source Oral Pulse Rate [Radial] 86 Respiratory Rate 18 Blood Pressure [Right Arm] 111/63 Blood Pressure Mean [Right Arm] 79 Blood Pressure Source [Right Arm] Automatic Cuff Blood Pressure Position [Right Arm] Sitting 02 Sat by Pulse Oximetry 98 Oxygen Delivery Method Room Air Orders (Tests/Meds): ORDERS Category Date Time Status XR ribs LT min 3V w CXR1V Stat Exams 06/11/24 14:15 Ordered Radiology Data #1: Image(s): Chest (ribs also) Image Reviewed: Yes I reviewed the patient's radiology image Preliminary Findings: No Fracture Seen and No Infiltrates Seen Accession No. : [id number] Patient Name / ID : Guillermina Jackson M / [id number] Exam Date : 06/11/2024 14:12:06 ( Final ) Study Comment : Sex / Age : M / 84Y Creator : JENNIFER RAMIREZ MD Dictator : Head Of Sales Promotion : Coagulating Bath Mixer : JENNIFER RAMIREZ MD Approver2 : Report Date : 06/11/2024 16:20:11 My Comment : PROCEDURE INFORMATION: Exam: XR Left Ribs with PA Chest Exam date and time: 06/11/2024 2:12 PM Age: 84 years old Clinical indication: Injury or trauma; Fall; Rib area, left side; Blunt trauma TECHNIQUE: Imaging protocol: Radiologic exam of the left ribs with PA chest. Views: 3 views COMPARISON: CR XR CHEST 2V 05/07/2021 8:51 PM FINDINGS: Lungs: Unremarkable. No consolidation. Pleural spaces: Small left pleural effusion Heart/Mediastinum: Unremarkable. No cardiomegaly. Bones/joints: Median sternotomy. There is no evidence of acute rib fracture IMPRESSION: No definite rib fracture identified.
[2024-06-11 15:58] VITALS: BP 111/63; PULSE 86; RESP 18; TEMP 36.7; O2SAT 98
== END 2024-06-11 15:59 | disposition home or self-care (01) ==
PROVIDERS: Emergency Provider Nurse Practitioner Family; PCP Family Medicine
DX: S20.212A Contusion of left front wall of thorax, initial encounter (principal); R07.1 Chest pain on breathing; Z87.891 Personal history of nicotine dependence; W01.190A Fall on same level from slipping, tripping and stumbling with subsequent striking against furniture, initial encounter; Y92.9 Unspecified place or not applicable
CPT/HCPCS: 71101; 99212; 99213; G0463

== ENCOUNTER 2024-07-07 12:41 | Outpatient (POV) | payer MEDICARE, BC, SELFPAY ==
--- NOTE | 2024-07-07 13:21 | EXP.PAIN.SOA ---
[facility] Disclaimer: The information contained in this section may have been updated after the patient was seen, as this information can be updated by other users. Medical History Constipation due to opioid therapy History of left heart catheterization (LHC) Aortic insufficiency Sinus arrest Bilateral carotid bruits Dyspnea Abnormal EKG Surgical History History of lumbar laminectomy History of laminectomy Hx of prostatectomy Hx of heart bypass surgery x5 History of esophagogastroduodenoscopy (EGD) Barretts esophagus History of right hip replacement History of left hip replacement History of knee replacement History of tonsillectomy History of cholecystectomy Family History Other Colon cancer Dementia Social History Smoking Status: Former smoker second hand exposure: No alcohol intake: never counseling provided: none substance use type: denies use current occupational status: other Travel in the last 8 weeks: None household members: spouse housing: house current occupational exposures/hazards: No caffeine: Yes PM Subjective & Objective Subjective Subjective:: Patient is a pleasant 84-year-old male who presents today for follow-up. Today he rates his pain a 5 out of 10. He denies any new trauma or injury. Patient does state that the compounded cream we ordered to him at his last visit did significantly improve multiple pains that he was experiencing. Patient does have a rotator cuff tear that he used the cream for and it did really help. Patient does state that that did better than the trigger point injections that he has had in the past. Patient denies any other changes. His Aleksander has been reviewed and is appropriate. Review of Systems: General: No recent weight changes, no fever, no sleep disturbances Respiratory: No cough, no shortness of air, no recurring pulmonary infections Cardiovascular/peripheral vascular: No chest pain, no palpitations, no edema, no shortness of breath Gastrointestinal: No new onset incontinence, normal bowel movements reported Genitourinary: No new onset incontinence Musculoskeletal: Low back pain, feet pain Psychiatric: [Normal mood/affect] Neurological: [Denies weakness in extremities], [denies balance issues] Pain at rest (0-10 scale): 5 Objective Objective:: Physical Exam: General: Alert and oriented x3, no acute distress, pleasant and cooperative Lungs: Respirations even and unlabored, symmetrical chest expansion Eyes: PERRL Musculoskeletal: Flexion and extension of lumbar [spine] somewhat guarded secondary to pain, [antalgic gait noted] Neurological: Speech clear, no gross sensory deficit Has patient had previous pain injection?: No Conservative treatment options previously tried: Home exercise plan Length of treatment: Longer than 6 weeks Meds Home Medications and Allergies Home Medications ?Medication ?Instructions ?Recorded ?Confirmed ?Type venlafaxine 75 mg capsule,extended 75 mg PO DAILY mood 30 days ##30 11/02/17 06/30/24 History release 24 hr (Effexor XR) aspirin 81 mg tablet,delayed 81 mg PO DAILY Blood thinner 05/27/18 06/30/24 History release (Adult Low Dose Aspirin) tamsulosin 0.4 mg capsule (Flomax) 0.4 mg PO DAILY prostate 02/10/20 06/30/24 History acetaminophen 500 mg tablet 500 mg PO Q6H PRN pain 07/03/21 06/30/24 History (Tylenol Extra Strength) melatonin 5 mg capsule 10 mg PO .COMPLEX sleep aid 11/04/22 06/30/24 History nitroglycerin 0.4 mg sublingual 0.4 mg sublingual Q5M PRN chest 03/05/23 06/30/24 Rx tablet pain #25 tabs fluticasone propionate 50 1 spray intranasal DAILY PRN nasal 04/16/23 06/30/24 Rx mcg/actuation nasal congestion #16 grams spray,suspension (Flonase Allergy Relief) polyethylene glycol 3350 17 17 g PO DAILY PRN constipation 05/14/23 06/30/24 History gram/dose oral powder (Miralax) psyllium husk 3.4 gram/5.4 gram 1 tbsp PO DAILY PRN constipation 05/14/23 06/30/24 History oral powder (Metamucil) finasteride 5 mg tablet (Proscar) 5 mg PO DAILY 07/30/23 06/30/24 History clopidogrel 75 mg tablet (Plavix) See Rx Instructions .Route .COMPLEX 02/12/24 06/30/24 History pantoprazole 40 mg tablet,delayed See Rx Instructions .Route .COMPLEX 02/12/24 06/30/24 History release (Protonix) sacrosidase 8,500 unit/mL oral 2 ml PO 6XD #300 mL 02/25/24 06/30/24 Rx solution (Sucraid) gabapentin 300 mg capsule 300 mg PO Q8H 02/26/24 06/30/24 History levothyroxine 100 mcg tablet 100 mcg PO DAILY 02/26/24 06/30/24 History [id number]-[id number]-gwofvko 1 cap PO QID epi #120 caps 04/25/24 06/30/24 Rx 36,000-114,000-180,000 unit capsule,delay rel (Creon) alprazolam 0.25 mg tablet 0.25 mg PO TID PRN Anxiety 05/31/24 06/30/24 History potassium chloride 8 mEq 16 meq PO BID 05/31/24 06/30/24 History tablet,extended release evolocumab 140 mg/mL subcutaneous See Rx Instructions .Route 06/16/24 06/30/24 Rx pen injector (Repatha Kayaick) .COMPLEX #2 mL losartan 50 mg tablet 50 mg PO BID PRN 06/30/24 06/30/24 History New Prescriptions to Start Prescriptions: Allergies Allergy/AdvReac Type Severity Reaction Status Date / Time rosuvastatin [From Crestor] Allergy Intermediate myalgias Verified 06/30/24 12:57 latex Allergy Mild Rash Verified 06/30/24 12:57 simvastatin AdvReac Intermediate Unknown Verified 06/30/24 12:57 allergy reaction ezetimibe [From Zetia] AdvReac Mild mylagia Verified 06/30/24 12:57 Assessment and Plan *Assessment and plan (1) Low back pain: Status: Acute Qualifiers: Chronicity: chronic Back pain laterality: right Sciatica presence: without sciatica Qualified Code(s): M54.50 - Low back pain, unspecified; G89.29 - Other chronic pain Category: Medical Code(s): M54.50 - Low back pain, unspecified Plan Patient has had significant improvement with the compounded cream and does not need any additional interventions at this time. Patient will return to clinic in 3 months for reevaluation of symptoms and plan of care. Patient has been instructed to contact the clinic with any concerns before the next appointment. Dr. Belle has reviewed this note and agrees with this plan of care. This note was dictated using voice recognition software and make contain errors or omissions. All injections are used with Lidocaine or Bupivacaine and Depo Medrol.
== END 2024-07-07 23:59 | disposition home or self-care (01) ==
LOC: SC.PAIN 12:42
PROVIDERS: PCP Family Medicine; Visit Provider Nurse Practitioner Family
DX: M54.50 Low back pain, unspecified (principal); G89.29 Other chronic pain; I25.10 Atherosclerotic heart disease of native coronary artery without angina pectoris; I10 Essential (primary) hypertension; Z95.5 Presence of coronary angioplasty implant and graft; Z95.1 Presence of aortocoronary bypass graft; Z96.643 Presence of artificial hip joint, bilateral; Z96.659 Presence of unspecified artificial knee joint; Z87.891 Personal history of nicotine dependence; Z79.899 Other long term (current) drug therapy; Z79.02 Long term (current) use of antithrombotics/antiplatelets
CPT/HCPCS: 99212; G0463

== ENCOUNTER 2024-10-06 13:13 | Outpatient (POV) | payer MEDICARE, BC, SELFPAY ==
--- NOTE | 2024-10-06 13:30 | EXP.PAIN.SOA ---
[facility] Disclaimer: The information contained in this section may have been updated after the patient was seen, as this information can be updated by other users. Medical History Constipation due to opioid therapy History of left heart catheterization (LHC) Aortic insufficiency Sinus arrest Bilateral carotid bruits Dyspnea Abnormal EKG Surgical History History of lumbar laminectomy History of laminectomy Hx of prostatectomy Hx of heart bypass surgery x5 History of esophagogastroduodenoscopy (EGD) Barretts esophagus History of right hip replacement History of left hip replacement History of knee replacement History of tonsillectomy History of cholecystectomy Family History Other Colon cancer Dementia Social History Smoking Status: Former smoker second hand exposure: No alcohol intake: never counseling provided: none substance use type: denies use current occupational status: other Travel in the last 8 weeks: None household members: spouse housing: house current occupational exposures/hazards: No caffeine: Yes Have you lived/traveled outside [place] in past 30 days?: No Contact w/someone who lives/traveled outside [place] past 30 days?: No Exposure to someone with infectious disease in past 14 days?: No Do you have a fever (greater than 100.4 F or 38 C)?: No Have you tested positive for COVID-19: No Exposed to someone with COVID-19 in past 14 days?: No Do you have a sore throat?: No Do you have a cough?: No Do you have any weakness?: No Do you have any diarrhea?: No Are you experiencing any unusual bleeding?: No Do you have any muscle aches/pain?: No Do you have any abdominal pain?: No Are you experiencing loss of taste or smell?: No PM Subjective & Objective Subjective Subjective:: Patient is a pleasant 84-year-old male who presents today for worsening pain in his left shoulder. Today he rates his pain an 8 out of 10. He states that his back is doing fine is just the shoulder joint. Patient describes it as a constant aching, throbbing sensation that does interfere with his ability perform activities of daily living such as cooking and cleaning. Patient does have a longstanding history with issues with his joint and has had imaging in the past that did show osteoarthritis and a rotator cuff tear. He denies any new injuries but feels like it is just more wear and tear. Patient has not had shoulder surgery. Patient has not had shoulder surgery. He states he has a lot more pain with certain range of motion or positioning. He does state that the pain is better if he keeps his arm closer to his body. Patient does use compounded cream and is continued other conservative treatment including heat and ice and at home stretching exercise for longer than 12 weeks with no additional changes. He does also state that the cold weather has seemed to aggravate it. His Aleksander has been reviewed and is appropriate. Review of Systems: General: No recent weight changes, no fever, no sleep disturbances Respiratory: No cough, no shortness of air, no recurring pulmonary infections Cardiovascular/peripheral vascular: No chest pain, no palpitations, no edema, no shortness of breath Gastrointestinal: No new onset incontinence, normal bowel movements reported Genitourinary: No new onset incontinence Musculoskeletal: Left shoulder pain Psychiatric: [Normal mood/affect] Neurological: [Denies weakness in extremities], [denies balance issues] Pain at rest (0-10 scale): 8 Objective Objective:: Physical Exam: General: Alert and oriented x3, no acute distress, pleasant and cooperative Lungs: Respirations even and unlabored, symmetrical chest expansion Eyes: PERRL Musculoskeletal: Flexion and extension of left shoulder somewhat guarded secondary to pain, [antalgic gait noted] Neurological: Speech clear, no gross sensory deficit Has patient had previous pain injection?: No Conservative treatment options previously tried: Home exercise plan Length of treatment: Longer than 12 weeks Meds Home Medications and Allergies Home Medications ?Medication ?Instructions ?Recorded ?Confirmed ?Type venlafaxine 75 mg capsule,extended 75 mg PO DAILY mood 30 days ##30 11/02/17 08/03/24 History release 24 hr (Effexor XR) aspirin 81 mg tablet,delayed 81 mg PO DAILY Blood thinner 05/27/18 08/03/24 History release (Adult Low Dose Aspirin) tamsulosin 0.4 mg capsule (Flomax) 0.4 mg PO DAILY prostate 02/10/20 08/03/24 History acetaminophen 500 mg tablet 500 mg PO Q6H PRN pain 07/03/21 08/03/24 History (Tylenol Extra Strength) melatonin 5 mg capsule 10 mg PO .COMPLEX sleep aid 11/04/22 08/03/24 History nitroglycerin 0.4 mg sublingual 0.4 mg sublingual Q5M PRN chest 03/05/23 08/03/24 Rx tablet pain #25 tabs fluticasone propionate 50 1 spray intranasal DAILY PRN nasal 04/16/23 08/03/24 Rx mcg/actuation nasal congestion #16 grams spray,suspension (Flonase Allergy Relief) polyethylene glycol 3350 17 17 g PO DAILY PRN constipation 05/14/23 08/03/24 History gram/dose oral powder (Miralax) psyllium husk 3.4 gram/5.4 gram 1 tbsp PO DAILY PRN constipation 05/14/23 08/03/24 History oral powder (Metamucil) finasteride 5 mg tablet (Proscar) 5 mg PO DAILY 07/30/23 08/03/24 History levothyroxine 100 mcg tablet 100 mcg PO DAILY 02/26/24 08/03/24 History alprazolam 0.25 mg tablet 0.25 mg PO TID PRN Anxiety 05/31/24 08/03/24 History potassium chloride 8 mEq 16 meq PO BID 05/31/24 08/03/24 History tablet,extended release losartan 50 mg tablet 50 mg PO BID Blood Pressure 06/30/24 08/03/24 History gabapentin 400 mg capsule 400 mg PO DAILY 08/03/24 08/03/24 History cnntxt-nohumfyn-dpukiwd 1 cap PO QID epi #360 caps 08/03/24 08/03/24 Rx 36,000-114,000-180,000 unit capsule,delay rel (Creon) sacrosidase 8,500 unit/mL oral 2 ml PO 6XD #300 mL 08/03/24 08/03/24 Rx solution (Sucraid) clopidogrel 75 mg tablet See Rx Instructions .Route 08/16/24 Rx .COMPLEX #210 tabs hydrochlorothiazide 12.5 mg tablet 12.5 mg PO DAILY #90 tabs 08/22/24 Rx evolocumab 140 mg/mL subcutaneous See Rx Instructions .Route 09/16/24 Rx pen injector (Lilly Phillips) .COMPLEX #2 mL pantoprazole 40 mg tablet,delayed 40 mg PO DAILY #90 tabs 09/19/24 Rx release (Protonix) New Prescriptions to Start Prescriptions: Allergies Allergy/AdvReac Type Severity Reaction Status Date / Time rosuvastatin (From Crestor) Allergy Intermediate myalgias Verified 08/03/24 10:56 latex Allergy Mild Rash Verified 08/03/24 10:56 simvastatin AdvReac Intermediate Unknown Verified 08/03/24 10:56 allergy reaction ezetimibe (From Zetia) AdvReac Mild mylagia Verified 08/03/24 10:56 Assessment and Plan *Assessment and plan (1) Left shoulder pain: Status: Acute Category: Medical Code(s): M25.512 - Pain in left shoulder (2) Osteoarthritis of left shoulder: Status: Acute Category: Medical Code(s): M19.012 - Primary osteoarthritis, left shoulder Plan Patient continues to experience significant pain in his left shoulder with very limited range of motion. I did discuss with patient that I do believe he would benefit from a left shoulder intra-articular injection. Risk and benefits were discussed with patient and he would like to proceed forward with this plan of care. Patient has tried and failed conservative therapy including oral medications, heat and ice, topicals, at home stretching and exercise for longer than 12 weeks with no additional improvement. Patient will be scheduled for a left shoulder intra-articular injection. This injection will be done without fluoroscopic or ultrasound guidance. Patient has been instructed to contact the clinic with any concerns before the next appointment. Dr. Belle has reviewed this note and agrees with this plan of care. This note was dictated using voice recognition software and make contain errors or omissions. All injections are used with Lidocaine, Bupivacaine and Depo Medrol. Occasionally urine drug screen is needed to verify patient's compliance with our office pain contract. This is ordered based off specific treatments related to chronic pain with the potential to abuse certain medications.
[2024-10-06 13:32] VITALS: BP 143/80; PULSE 86; RESP 18; O2SAT 97; BMI 33.4
== END 2024-10-06 23:59 | disposition home or self-care (01) ==
LOC: SC.PAIN 13:15
PROVIDERS: PCP Family Medicine; Visit Provider Nurse Practitioner Family
DX: M25.512 Pain in left shoulder (principal); M19.012 Primary osteoarthritis, left shoulder; Z87.891 Personal history of nicotine dependence; Z73.89 Other problems related to life management difficulty; Z79.899 Other long term (current) drug therapy
CPT/HCPCS: 99212; G0463

== ENCOUNTER 2024-10-18 12:42 | Day surgery (SDC) | payer MEDICARE, BC, SELFPAY ==
[2024-10-18 13:13] VITALS: BP 158/78; PULSE 63; RESP 16; TEMP 36.8; O2SAT 97; BMI 34.2
[2024-10-18] MEDS: LIDOCAINE 1% 5ML PF VIAL 5 ML (13:32)
[2024-10-18] MEDS: BUPIVACAINE 0.25% 10ML INJ 25 MG IJ (13:32)
[2024-10-18] MEDS: methylPREDNISolone ACETATE 80MG/ML VIAL 80 MG (13:32)
[2024-10-18 13:38] VITALS: BP 154/85; BP 156/90; PULSE 70; RESP 18; TEMP 36.8; O2SAT 95; O2SAT 97
--- NOTE | 2024-10-18 13:56 | EXP.PAIN.PRO ---
Procedure Date: 10/18/24 Time: 13:30 Anesthesiologist:: Shai Liu CRNA Complications:: None Pre-procedure Diagnosis:: DJD left shoulder. Chronic left shoulder pain. Post-procedure Diagnosis:: Same. Indications for Procedure:: Patient is a very pleasant 84-year-old male who comes our clinic today for a left intra-articular shoulder injection of cortisone and local anesthetic. Patient describes left shoulder pain as constant, dull, aching. He reports having difficulty sleeping due to the pain in the left shoulder. Patient has 5/5 strength in the left shoulder. However decreased range of motion secondary to chronic left shoulder pain. Procedure Details:: Procedure Details: Left shoulder intra-articular injection Informed consent was obtained risk and benefits of the procedure were explained to the patient. Patient was taken to the procedure room. The Left shoulder was prepped using ChloraPrep. A 25-gauge needle was used posteriorly to inject 10 mL bupivacaine 0.25% and Depo-Medrol 40 mg. Patient tolerated procedure well with no complications. Plan and Disposition:: Patient was discharged without incident.
[2024-10-19 09:59] VITALS: BP 154/85; PULSE 70; RESP 18; O2SAT 95
== END 2024-10-18 13:40 | disposition home or self-care (01) ==
LOC: SC.PAINP 12:44
PROVIDERS: PCP Family Medicine; Visit Provider Nurse Anesthetist, Certified Registered
DX: M19.012 Primary osteoarthritis, left shoulder (principal); M25.512 Pain in left shoulder; G89.29 Other chronic pain
CPT/HCPCS: 20610; J1010

== ENCOUNTER 2024-10-26 13:51 | Outpatient (CLI) | payer MEDICARE, BC, SELFPAY ==
[2024-10-26 14:21] LABS: Basophils # 0.1 K/mm3 (0-0.2); Basophils % 0.7 % (0.1-2.0); Eosinophils # 0.2 K/mm3 (0.0-0.4); Eosinophils % 2.3 % (0.1-12.0); Hematocrit 41.5 % (42.0-52.0); Hemoglobin 14.4 g/dL (14.1-18.0); Lymphocytes # 0.9 K/mm3 (0.7-4.5); Lymphocytes % 11.5 % (10-50); Mean Corpuscular HGB Conc 34.7 g/dL (31.8-35.4); Mean Corpuscular Hemoglobin 30.8 pg (27.0-31.2); Mean Corpuscular Volume 88.7 fl (80-94); Mean Platelet Volume 8.4 fl (7.4-10.4); Monocytes # 0.8 K/mm3 (0.1-1.0); Neutrophils # 5.6 K/mm3 (1.8-7.8); Neutrophils % 74.6 % (37.0-80.0); Platelet Count 180 K/mm3 (142-424); Red Blood Count 4.68 M/mm3 (4.60-6.20); Red Cell Distribution Width 11.8 % (11.5-17.5); White Blood Count 7.5 K/mm3 (4.8-10.8)
[2024-10-26 15:05] LABS: Free T4 (Free Thyroxine) 1.11 ng/dl (0.78-2.19)
[2024-10-26 15:33] LABS: Chloride 86 mmol/L (98-107); Potassium 4.5 mmoL/L (3.5-5.1); Sodium 123 mmol/L (136-145)
[2024-10-26 15:35] LABS: Alanine Aminotransferase 22 U/L (12-78); Anion Gap 11.5 mEq/L (5-15); Aspartate Amino Transferase 25 U/L (17-59); Bilirubin,Unconjugated 0.6 mg/dL (0.0-1.1); Blood Urea Nitrogen 11 mg/dl (9-20); Carbon Dioxide 30 mmol/L (22.0-30.0); Estimated Glomerular Filt Rate 107 ml/min (>60); GFR (African American) 130 ML/MIN (>60)
[2024-10-26 15:36] LABS: Alkaline Phosphatase 94 U/L (38-126); Bilirubin,Direct 0.1 mg/dl (0.0-0.4); Bilirubin,Indirect 0.5 mg/dL (0.0-0.9); Bilirubin,Total 0.6 mg/dl (0.2-1.3); Calcium 9.3 mg/dl (8.4-10.2); Chol/HDL Ratio 2.7 (1-3.5); Cholesterol 171 mg/dl (140-200); Glucose 103 mg/dl (74-100); HDL Cholesterol 64 mg/dl (40-60); Magnesium 1.8 mg/dl (1.6-2.3); Total Protein,Serum 6.8 g/dl (6.3-8.2); Triglycerides 128 mg/dl (30-150); VLDL Cholesterol 26 mg/dL (0-40)
[2024-10-26 15:47] LABS: Direct LDL Cholesterol 72.27 mg/dL (100-129)
[2024-10-26 16:06] LABS: Thyroid Stimulating Hormone 0.61 uIU/mL (0.465-4.68)
== END 2024-10-26 23:59 | disposition home or self-care (01) ==
LOC: LAB 13:53
PROVIDERS: PCP Family Medicine; Visit Provider Nurse Practitioner
DX: E87.1 Hypo-osmolality and hyponatremia (principal); I10 Essential (primary) hypertension; E78.2 Mixed hyperlipidemia; Z95.1 Presence of aortocoronary bypass graft; R94.31 Abnormal electrocardiogram [ECG] [EKG]
CPT/HCPCS: 36415; 80048; 80061; 80076; 83735; 84439; 84443; 85025

== ENCOUNTER 2024-11-02 10:12 | Outpatient (POV) | payer MEDICARE, BC, SELFPAY ==
[2024-11-02 10:43] VITALS: BP 117/62; PULSE 71; RESP 18; O2SAT 100; BMI 33.4
--- NOTE | 2024-11-02 11:16 | EXP.PAIN.SOA ---
[facility] Disclaimer: The information contained in this section may have been updated after the patient was seen, as this information can be updated by other users. Medical History Constipation due to opioid therapy History of left heart catheterization (LHC) Aortic insufficiency Sinus arrest Bilateral carotid bruits Dyspnea Abnormal EKG Surgical History History of lumbar laminectomy History of laminectomy Hx of prostatectomy Hx of heart bypass surgery x5 History of esophagogastroduodenoscopy (EGD) Barretts esophagus History of right hip replacement History of left hip replacement History of knee replacement History of tonsillectomy History of cholecystectomy Family History Other Colon cancer Dementia Social History Smoking Status: Former smoker second hand exposure: No alcohol intake: never counseling provided: none substance use type: denies use current occupational status: retired Travel in the last 8 weeks: None household members: spouse housing: house current occupational exposures/hazards: No caffeine: Yes PM Subjective & Objective Subjective Subjective:: Patient is a pleasant 84-year-old male who presents today for follow-up of left intra-articular shoulder injection on 10/18/2024. He does state today his pain is a 6 out of 10 however that is primarily in his low back. Patient does state that immediately after having this injection it was tender however by the time he even got to the car that he was telling his that he had already noticed a difference and that it was much better. He states that where he was previously having pain even while he was seated with his arm on a pillow that now that is completely gone away. He states he has no pain when he it is in prolonged positioning. He states only certain movements aggravate his shoulder now that is more typically related to extension. Patient does state overall his back is giving him the most fit and denies any radiating symptoms into his legs. He states it is on both sides and just seems more aggravated with prolonged positioning or certain movements such as bending. He does state it is interfering with his ability to perform activities of daily living such as cooking and cleaning. Patient has been prescribed compounded cream in the past. His Aleksander has been reviewed and is appropriate. Review of Systems: General: No recent weight changes, no fever, no sleep disturbances Respiratory: No cough, no shortness of air, no recurring pulmonary infections Cardiovascular/peripheral vascular: No chest pain, no palpitations, no edema, no shortness of breath Gastrointestinal: No new onset incontinence, normal bowel movements reported Genitourinary: No new onset incontinence Musculoskeletal: Low back pain Psychiatric: [Normal mood/affect] Neurological: [Denies weakness in extremities], [denies balance issues] Pain at rest (0-10 scale): 6 Objective Objective:: Physical Exam: General: Alert and oriented x3, no acute distress, pleasant and cooperative Lungs: Respirations even and unlabored, symmetrical chest expansion Eyes: PERRL Musculoskeletal: Flexion and extension of lumbar [spine] somewhat guarded secondary to pain, [antalgic gait noted] point tenderness along bilateral SIs with positive bilateral Haim's, Natasha's, Gaenslen's, compression and distraction exam Neurological: Speech clear, no gross sensory deficit Has patient had previous pain injection?: Yes Percent improvement in pain since last injection: 50% Conservative treatment options previously tried: Home exercise plan Length of treatment: Longer than 12 weeks Meds Home Medications and Allergies Home Medications ?Medication ?Instructions ?Recorded ?Confirmed ?Type venlafaxine 75 mg capsule,extended 75 mg PO DAILY mood 30 days ##30 11/02/17 11/02/24 History release 24 hr (Effexor XR) aspirin 81 mg tablet,delayed 81 mg PO DAILY Blood thinner 05/27/18 11/02/24 History release (Adult Low Dose Aspirin) tamsulosin 0.4 mg capsule (Flomax) 0.4 mg PO DAILY prostate 02/10/20 11/02/24 History acetaminophen 500 mg tablet 500 mg PO Q6H PRN pain 07/03/21 11/02/24 History (Tylenol Extra Strength) melatonin 5 mg capsule 10 mg PO .COMPLEX sleep aid 11/04/22 11/02/24 History nitroglycerin 0.4 mg sublingual 0.4 mg sublingual Q5M PRN chest 03/05/23 11/02/24 Rx tablet pain #25 tabs fluticasone propionate 50 1 spray intranasal DAILY PRN nasal 04/16/23 11/02/24 Rx mcg/actuation nasal congestion #16 grams spray,suspension (Flonase Allergy Relief) polyethylene glycol 3350 17 17 g PO DAILY PRN constipation 05/14/23 11/02/24 History gram/dose oral powder (Miralax) psyllium husk 3.4 gram/5.4 gram 1 tbsp PO DAILY PRN constipation 05/14/23 11/02/24 History oral powder (Metamucil) finasteride 5 mg tablet (Proscar) 5 mg PO DAILY 07/30/23 11/02/24 History levothyroxine 100 mcg tablet 100 mcg PO DAILY 02/26/24 11/02/24 History alprazolam 0.25 mg tablet 0.25 mg PO TID PRN Anxiety 05/31/24 11/02/24 History potassium chloride 8 mEq 16 meq PO BID 05/31/24 11/02/24 History tablet,extended release whdjqq-ugesgqor-masteec 1 cap PO QID epi #360 caps 08/03/24 11/02/24 Rx 36,000-114,000-180,000 unit capsule,delay rel (Creon) sacrosidase 8,500 unit/mL oral 2 ml PO 6XD #300 mL 08/03/24 11/02/24 Rx solution (Sucraid) clopidogrel 75 mg tablet See Rx Instructions .Route 08/16/24 11/02/24 Rx .COMPLEX #210 tabs hydrochlorothiazide 12.5 mg tablet 12.5 mg PO DAILY #90 tabs 08/22/24 11/02/24 Rx evolocumab 140 mg/mL subcutaneous See Rx Instructions .Route 09/16/24 11/02/24 Rx pen injector (Repatha [employer]) .COMPLEX #2 mL pantoprazole 40 mg tablet,delayed 40 mg PO DAILY #90 tabs 09/19/24 11/02/24 Rx release (Protonix) gabapentin 400 mg capsule 1,200 mg PO DAILY 10/26/24 11/02/24 History losartan 100 mg tablet 100 mg PO DAILY #90 tabs 10/26/24 11/02/24 Rx New Prescriptions to Start Prescriptions: Allergies Allergy/AdvReac Type Severity Reaction Status Date / Time rosuvastatin (From Crestor) Allergy Intermediate myalgias Verified 10/26/24 13:13 latex Allergy Mild Rash Verified 10/26/24 13:13 simvastatin AdvReac Intermediate Unknown Verified 10/26/24 13:13 allergy reaction ezetimibe (From Zetia) AdvReac Mild mylagia Verified 10/26/24 13:13 Assessment and Plan *Assessment and plan (1) Bilateral sacroiliitis: Status: Acute Category: Medical Code(s): M46.1 - Sacroiliitis, not elsewhere classified Plan Patient is experiencing worsening pain along the low back and bilateral hips. They did have limited range of motion of the lumbar spine along with point tenderness along bilateral SI joints and a positive bilateral Haim's, Natasha's, Gaenslen's, compression and distraction exam. I did discuss with the patient that I do believe they would benefit from bilateral SI injections. Risk and benefits were discussed with the patient and they would like to proceed forward with this option. Patient has tried and failed conservative therapy including continued at home stretching exercise for longer than 12 weeks. Patient has had a longstanding history of previous low back pain including sacroiliitis for several years. Patient has had injections for this specific pain back in 2018 with our office. Patient did write significant improvements at that time of at least 80% and has not needed any additional injections in these SI joint since. Patient will be scheduled for bilateral SI injections under fluoroscopy. Patient has been instructed to contact the clinic with any concerns before the next appointment. Dr. Belle has reviewed this note and agrees with this plan of care. This note was dictated using voice recognition software and make contain errors or omissions. All injections are used with Lidocaine or Bupivacaine and Depo Medrol.
== END 2024-11-02 23:59 | disposition home or self-care (01) ==
LOC: SC.PAIN 10:14
PROVIDERS: PCP Family Medicine; Visit Provider Nurse Practitioner Family
DX: M46.1 Sacroiliitis, not elsewhere classified (principal); Z73.89 Other problems related to life management difficulty; Z79.899 Other long term (current) drug therapy; Z87.891 Personal history of nicotine dependence
CPT/HCPCS: 99212; G0463

== ENCOUNTER 2024-11-21 10:23 | Outpatient (CLI) | payer MEDICARE, BC, SELFPAY ==
[2024-11-21 11:09] LABS: Anion Gap 5.3 mEq/L (5-15); Blood Urea Nitrogen 11 mg/dl (9-20); Calcium 9.3 mg/dl (8.4-10.2); Carbon Dioxide 32 mmol/L (22.0-30.0); Chloride 91 mmol/L (98-107); Estimated Glomerular Filt Rate 92 ml/min (>60); GFR (African American) 111 ML/MIN (>60); Glucose 100 mg/dl (74-100); Magnesium 1.7 mg/dl (1.6-2.3); Potassium 4.3 mmoL/L (3.5-5.1); Sodium 124 mmol/L (136-145)
== END 2024-11-21 23:59 | disposition home or self-care (01) ==
LOC: LAB 10:24
PROVIDERS: PCP Family Medicine; Visit Provider Nurse Practitioner
DX: R94.31 Abnormal electrocardiogram [ECG] [EKG] (principal); I25.10 Atherosclerotic heart disease of native coronary artery without angina pectoris; Z95.1 Presence of aortocoronary bypass graft; E78.2 Mixed hyperlipidemia; I10 Essential (primary) hypertension
CPT/HCPCS: 36415; 80048; 83735

== ENCOUNTER 2024-11-29 10:35 | Day surgery (SDC) | payer MEDICARE, BC, SELFPAY ==
[2024-11-29 10:41] VITALS: BP 129/72; PULSE 65; RESP 16; TEMP 36.6; O2SAT 100; BMI 33.4
[2024-11-29 11:07] VITALS: BP 142/62; PULSE 65; RESP 16; O2SAT 98
--- NOTE | 2024-11-29 11:39 | P.PCN_ITS ---
Procedure Date: 11/29/24 Time: 11:00 Anesthesiologist:: Shai Liu CRNA Complications:: None Pre-procedure Diagnosis:: Bilateral sacroiliitis Post-procedure Diagnosis:: Same Indications for Procedure:: Patient is a very pleasant 84-year-old male who comes our clinic today for bilateral sacroiliac joint injection of cortisone and local anesthetic. Patient describes low lumbar back pain off the midline bilaterally. Bilateral posterior hip pain. Difficulty transitioning from sitting to standing. He rates his pain 8/10. Procedure Details:: Procedure: Bilateral sacroiliac joint injections under fluoroscopy Informed consent was obtained and the risks and benefits of the procedure were explained to the patient.~ The patient was taken to the procedure room and noninvasive monitors were placed including a noninvasive blood pressure cuff and pulse oximeter.~ The patient was placed prone on the procedure table. Both hips were cleansed using Betadine as a cleansing solution. C-arm fluoroscopy was used to view the right sacroiliac joint.~ The skin and subcutaneous tissues were anesthetized using lidocaine 1.5% and a 25-gauge needle.~ After this, a 22-gauge spinal needle was inserted under fluoroscopic guidance into the inferior aspect of the right sacroiliac joint.~ Omnipaque dye was injected and good spread was seen throughout the joint.~ After this, approximately 5 mL of bupivacaine, 0.25% and Depo-Medrol, 40 mg was incrementally injected into the right sacroiliac joint. We then moved to the left sacroiliac joint.~ The skin and subcutaneous tissues were anesthetized using lidocaine 1.5% and a 25-gauge needle.~ After this, a 22- gauge spinal needle was inserted under fluoroscopic guidance into the inferior aspect of the left sacroiliac joint.~ Omnipaque dye was injected and good spread was seen throughout the joint. After this, approximately 5 mL of bupivacaine, 0.25% and Depo-Medrol, 40 mg was incrementally injected into the left sacroiliac joint.~ The patient tolerated the procedure well with no complications. The patient was observed in the Pain Clinic and then was discharged home neurologically intact. Plan and Disposition:: Patient was discharged without incident.
[2024-11-29] MEDS: LIDOCAINE 1% 5ML PF VIAL 5 ML (12:44)
[2024-11-29] MEDS: BUPIVACAINE 0.25% 10ML INJ 25 MG IJ (12:44)
[2024-11-29 12:45] VITALS: BP 129/72; PULSE 65; RESP 18; O2SAT 100
[2024-11-29] MEDS: methylPREDNISolone ACETATE 80MG/ML VIAL 80 MG (12:45)
[2024-11-29 12:50] VITALS: BP 129/72; PULSE 65; RESP 18; O2SAT 100
== END 2024-11-29 11:07 | disposition home or self-care (01) ==
LOC: SC.PAINP 10:36
PROVIDERS: PCP Family Medicine; Visit Provider Nurse Anesthetist, Certified Registered
DX: M46.1 Sacroiliitis, not elsewhere classified (principal)
CPT/HCPCS: 27096; G0260; J1010

== ENCOUNTER 2024-12-07 11:32 | Outpatient (CLI) | payer MEDICARE, BC, SELFPAY ==
--- NOTE | 2024-12-07 | CA_ITS ---
APPROVED REPORT Exam: Pharmacologic Technologist: Emma Lam Ht: 5 ft 8 in Wt: 223 lbs BSA: 2.14 m2 Stress Test Details Test: Lexiscan Reason for pharmacologic stress test: physical limitation. HR Resting HR: 56 bpm Max Heart Rate (APMHR): 136.471559 bpm Max HR Achieved: 82 bpm Target HR (85% APMHR): 115.215037 bpm % of APMHR: 60.29 Recovery HR: 71 bpm BP Resting BP: 176.0/79.0 mmHg Max BP: 176.0/79.0 mmHg Recovery BP: 111.0/69.0 mmHg ECG Stress ECG Conclusion Symptoms: SOA, No Chest Pain. Headache. Arrhythmias/Ectopy: None. ST-T changes: EKG nondiagnostic-Rosy Electronically signed by : Dalila Day MD 12/08/2024 12:28:58
[2024-12-07] MEDS: SODIUM CHLORIDE 0.9% 10ML SYR (RAD ONLY) 10 ML IV ×2 (11:30→13:00)
--- NOTE | 2024-12-07 11:33 | NM_ITS ---
APPROVED REPORT Exam: Nuclear Stress Test Indication: cad, cabg, sob, dizziness Patient Location: Outpatient Stress Tech: Emma Doshi [place] Tech:NATHANIEL Miramontes RT (R)(N)(M) Ht: 5 ft 8 in Wt: 220 lbs HR: 56 bpm BP: 176/79 mmHg BSA: 2.13 m2 TID: 0.78 BMI: 33.4 History: cad, cabg, sob, dizziness pt could not lay on stomach for prone images Procedure: Patient received 0.4 mg of intravenous Lexiscan, resting heart rate 56 bpm, resting blood pressure 176/79 mmHg, with Lexiscan maximum heart rate achieved was 82 bpm which is % of the maximum predicted heart rate and blood pressure was 143/68 mmHg. With Lexiscan, patient denied any complaint of chest pain. Cardiac Stress and Resting SPECT Images: Cardiac Stress and Resting SPECT images were obtained using technetium 99m Myoview 31.5 mCi stress and 10.04 mCi at rest. The patient is unable to lie on his abdomen. Therefore, prone stress imaging could not be performed. This may affect the diagnostic interpretation of the study findings. There is a large sized, moderate, partially reversible perfusion defect in the inferior, inferoseptal, inferolateral, and lateral LV fowler. Gated imaging demonstrates moderate reduction global LV systolic function. There is severe hypokinesis of the basal to mid inferior and lateral LV fowler. LVEF is calculated at 35%. Conclusion: Large sized, moderate, partially reversible perfusion defect in the inferior, inferoseptal, inferolateral, and lateral LV fowler. Findings are suggestive of partial reversible ischemia. Gated imaging demonstrates moderate reduction global LV systolic function. There is severe hypokinesis of the basal to mid inferior and lateral LV fowler. LVEF is calculated at 35%. Electronically signed by : Dalila Day MD 12/08/2024 12:22:43
--- NOTE | 2024-12-07 11:34 | CA_ITS ---
APPROVED REPORT EXAM: Comprehensive 2D, Doppler, and color-flow Echocardiogram Medical Director: Ayde High RDCS Ht: 5 ft 8 in Wt: 223lbs BSA: 2.14 BP: 121/77 mmHg Indications: SOA,HTN,CAD,CABG,CM,ABN EKG,HTN,HLP TDS 2D Dimensions Left Atrium 4.54 cm M: 3.0 - 4.0 LVOT 2.64 cm (M/F) 1.5-2.5 M-Mode Dimensions RVDd 3.09 cm (0.9-2.6) LVDd 8.23 cm (3.5-5.7) Ao Diam 4.04 cm (2.0-3.7) LVDs 7.33 cm (3.5-5.7) IVSd 0.85 cm (0.6-1.1) PWd 0.97 cm (0.6-1.1) EF (Teich) 22.80% FS 10.90% EDV (Teich) 367.10 mL ESV (Teich) 283.30 mL LV Diastology E Decel Time 303 (160-240 msec) E/A Ratio 0.7 Mitral Valve MV E Max Messi. 59.0 (40-130 cm/s) MV A Velocity 85.0 (40-130 cm/s) E/A Ratio 0.69 MV Decel. Time 303 (160-240 ms) Left Ventricle The left ventricle is normal size. The left ventricular systolic function is mildly to moderately reduced. There is increased LV wall thickness. Mild to moderate global hypokinesis. The septum is asynchronous. Regional wall motion cannot be well-evaluated due to technically difficult study. Diastolic function is indeterminate. LVEF is 40%. Right Ventricle Right ventricle is moderately dilated. The right ventricular systolic function is mildly reduced. Atria Left atrium is mildly dilated. The right atrium is not well-visualized. The interatrial septum is not well-visualized. Aortic Valve The aortic valve is mildly thickened. There is no aortic valvular stenosis. Trace aortic regurgitation is present. Mitral Valve The mitral valve is mildly thickened. No evidence of mitral valve stenosis. Trace mitral regurgitation. Tricuspid Valve Tricuspid valve is grossly normal in structure and function. Trace tricuspid regurgitation. There is insufficient TR jet to estimate RVSP. Pulmonic Valve The pulmonary valve leaflets are not well-visualized. Great Vessels The aortic root is normal in size. The IVC is not well-visualized. Pericardium There is no pericardial effusion. Other Information Study Quality: Technically Difficult Conclusion Technically difficult study due to poor acoustic windows. Mild to moderate global reduction in LV systolic function (LVEF 40%). Asynchronous septum. Regional wall motion cannot be well-evaluated due to technically difficult study. Moderate RV dilation with mild reduction in RV function. No significant valvular stenosis or regurgitation. In the setting of technically difficult study, future TTEs are suggested with administration of ultrasound enhancing agent. Electronically signed by : Dalila Day MD 12/15/2024 13:26:21
[2024-12-07] MEDS: REGADENOSON 0.4MG/5ML SYRINGE 0.4 MG IV (13:00)
[2024-12-07] MEDS: ISOTOPE MYOVIEW (PER STUDY) 1 DOSE IV (13:52)
== END 2024-12-07 23:59 | disposition home or self-care (01) ==
LOC: RAD 11:33
PROVIDERS: PCP Family Medicine; Visit Provider Nurse Practitioner
DX: R07.89 Other chest pain (principal); I25.10 Atherosclerotic heart disease of native coronary artery without angina pectoris; I42.8 Other cardiomyopathies
CPT/HCPCS: 78452; 93017; 93018; 93306; A9502; J2785

== ENCOUNTER 2024-12-12 10:06 | Outpatient (POV) | payer MEDICARE, BC, SELFPAY ==
--- NOTE | 2024-12-12 10:45 | A.OFFVIS_ITS ---
[facility] Disclaimer: The information contained in this section may have been updated after the patient was seen, as this information can be updated by other users. Medical History Constipation due to opioid therapy History of left heart catheterization (LHC) Aortic insufficiency Sinus arrest Bilateral carotid bruits Dyspnea Abnormal EKG Surgical History History of lumbar laminectomy History of laminectomy Hx of prostatectomy Hx of heart bypass surgery x5 History of esophagogastroduodenoscopy (EGD) Barretts esophagus History of right hip replacement History of left hip replacement History of knee replacement History of tonsillectomy History of cholecystectomy Family History Other Colon cancer Dementia Social History Smoking Status: Former smoker second hand exposure: No alcohol intake: never counseling provided: none substance use type: denies use current occupational status: retired Travel in the last 8 weeks: None household members: spouse housing: house current occupational exposures/hazards: No caffeine: Yes PM Subjective & Objective Subjective Subjective:: Patient is a pleasant 84-year-old male who presents today for follow-up of bilateral SI injections on 11/29/2024. Today he rates his pain a 3 out of 10. He states that these injections did wonderful. He states he was a little bit more sore initially but by the next day he was feeling much better. He states it took about 3 days for really to kick can and would rate anywhere from about 70 to 80% improvement. He states that overall he is not having the same pain that he was having. He states the pain is primarily on the right side and a little bit higher than where it was originally. He does state the pain is definitely not as severe and he is able to walk around longer with overall decreased pain. His even states that he was able to walk more and even stated that at 1 point in time he states that those injections really do well. Patient does feel like having the 2 at the same time has made a bigger difference. His Aleksander has been reviewed and is appropriate. Review of Systems: General: No recent weight changes, no fever, no sleep disturbances Respiratory: No cough, no shortness of air, no recurring pulmonary infections Cardiovascular/peripheral vascular: No chest pain, no palpitations, no edema, no shortness of breath Gastrointestinal: No new onset incontinence, normal bowel movements reported Genitourinary: No new onset incontinence Musculoskeletal: Low back pain Psychiatric: [Normal mood/affect] Neurological: [Denies weakness in extremities], [denies balance issues] Pain at rest (0-10 scale): 3 Objective Objective:: Physical Exam: General: Alert and oriented x3, no acute distress, pleasant and cooperative Lungs: Respirations even and unlabored, symmetrical chest expansion Eyes: PERRL Musculoskeletal: Flexion and extension of lumbar [spine] somewhat guarded secondary to pain, [antalgic gait noted] Neurological: Speech clear, no gross sensory deficit Has patient had previous pain injection?: Yes Percent improvement in pain since last injection: 70 to 80% Conservative treatment options previously tried: Home exercise plan Length of treatment: Longer than 12 weeks Meds Home Medications and Allergies Home Medications ?Medication ?Instructions ?Recorded ?Confirmed ?Type venlafaxine 75 mg capsule,extended 75 mg PO DAILY mood 30 days ##30 11/02/17 11/29/24 History release 24 hr (Effexor XR) aspirin 81 mg tablet,delayed 81 mg PO DAILY Blood thinner 05/27/18 11/29/24 History release (Adult Low Dose Aspirin) tamsulosin 0.4 mg capsule (Flomax) 0.4 mg PO DAILY prostate 02/10/20 11/29/24 History acetaminophen 500 mg tablet 500 mg PO Q6H PRN pain 07/03/21 11/29/24 History (Tylenol Extra Strength) melatonin 5 mg capsule 10 mg PO .COMPLEX sleep aid 11/04/22 11/29/24 History nitroglycerin 0.4 mg sublingual 0.4 mg sublingual Q5M PRN chest 03/05/23 11/29/24 Rx tablet pain #25 tabs fluticasone propionate 50 1 spray intranasal DAILY PRN nasal 04/16/23 11/29/24 Rx mcg/actuation nasal congestion #16 grams spray,suspension (Flonase Allergy Relief) psyllium husk 3.4 gram/5.4 gram 1 tbsp PO DAILY PRN constipation 05/14/23 11/29/24 History oral powder (Metamucil) finasteride 5 mg tablet (Proscar) 5 mg PO DAILY 07/30/23 11/29/24 History levothyroxine 100 mcg tablet 100 mcg PO DAILY 02/26/24 11/29/24 History alprazolam 0.25 mg tablet 0.25 mg PO TID PRN Anxiety 05/31/24 11/29/24 History mcthsa-kwrclnoa-tnaxthj 1 cap PO QID epi #360 caps 08/03/24 11/29/24 Rx 36,000-114,000-180,000 unit capsule,delay rel (Creon) sacrosidase 8,500 unit/mL oral 2 ml PO 6XD #300 mL 08/03/24 11/29/24 Rx solution (Sucraid) clopidogrel 75 mg tablet See Rx Instructions .Route 08/16/24 11/29/24 Rx .COMPLEX #210 tabs pantoprazole 40 mg tablet,delayed 40 mg PO DAILY #90 tabs 09/19/24 11/29/24 Rx release (Protonix) gabapentin 400 mg capsule 1,200 mg PO DAILY 10/26/24 11/29/24 History losartan 100 mg tablet 100 mg PO DAILY #90 tabs 10/26/24 11/29/24 Rx cefdinir 300 mg capsule 300 mg PO BID 11/07/24 11/29/24 History spironolactone 25 mg tablet 25 mg PO DAILY #30 tabs 11/07/24 11/29/24 Rx (Aldactone) cholecalciferol (vitamin D3) 1,250 1,250 mcg PO WEEKLY 11/21/24 11/29/24 History mcg (50,000 unit) capsule evolocumab 140 mg/mL subcutaneous See Rx Instructions .Route 12/05/24 Rx pen injector (Repatha SureHansick) .COMPLEX #2 mL New Prescriptions to Start Prescriptions: Allergies Allergy/AdvReac Type Severity Reaction Status Date / Time rosuvastatin (From Crestor) Allergy Intermediate myalgias Verified 11/21/24 13:23 latex Allergy Mild Rash Verified 11/21/24 13:23 simvastatin AdvReac Intermediate Unknown Verified 11/21/24 13:23 allergy reaction ezetimibe (From Zetia) AdvReac Mild mylagia Verified 11/21/24 13:23 Assessment and Plan *Assessment and plan (1) Bilateral sacroiliitis: Status: Acute Category: Medical Code(s): M46.1 - Sacroiliitis, not elsewhere classified (2) Low back pain: Status: Acute Qualifiers: Chronicity: chronic Back pain laterality: right Sciatica presence: without sciatica Qualified Code(s): M54.50 - Low back pain, unspecified; G89.29 - Other chronic pain Category: Medical Code(s): M54.50 - Low back pain, unspecified Plan PatientPatient has had significant improvement following his bilateral SI injections and does not require any additional interventions at this time. 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 We will continue to monitor this. I did recommend whether or not updating some physical therapy or home health therapy may be beneficial to help. Patient does use a cane to help with walking. does state that she is going to look online and will let us know if she would like us to order this therapy. Patient will return to clinic in 6 weeks. Patient has been instructed to contact the clinic with any concerns before the next appointment. Dr. Belle has reviewed this note and agrees with this plan of care. This note was dictated using voice recognition software and make contain errors or omissions. All injections are used with Lidocaine, Bupivacaine and Depo Medrol. Occasionally urine drug screen is needed to verify patient's compliance with our office pain contract. This is ordered based off specific treatments related to chronic pain with the potential to abuse certain medications.
[2024-12-12 10:56] VITALS: BP 114/69; PULSE 63; RESP 14; O2SAT 97; BMI 33.4
== END 2024-12-12 23:59 | disposition home or self-care (01) ==
LOC: SC.PAIN 10:08
PROVIDERS: PCP Family Medicine; Visit Provider Nurse Practitioner Family
DX: M46.1 Sacroiliitis, not elsewhere classified (principal); M54.50 Low back pain, unspecified; G89.29 Other chronic pain; Z96.643 Presence of artificial hip joint, bilateral; Z87.891 Personal history of nicotine dependence; Z96.659 Presence of unspecified artificial knee joint
CPT/HCPCS: 99212; G0463

== ENCOUNTER 2024-12-20 10:32 | Day surgery (SDC) | payer MEDICARE, BC, SELFPAY ==
[2024-12-20] VITALS (16 sets, daily range): BP systolic 100–170; BP diastolic 54–84; PULSE 47–79; RESP 16–20; O2SAT 94–100; BMI 34.2
--- NOTE | 2024-12-20 07:11 | IR_ITS ---
APPROVED REPORT Patient Location: Outpatient PROCEDURES Left heart catheterization Left ventriculogram Selective coronary angiogram Left internal mammary angiography to the LAD Selective engagement of saphenous vein graft to the diagonal artery Selective engagement of saphenous vein graft to an obtuse marginal artery Selective engagement of saphenous vein graft to the right coronary INDICATION Coronary artery disease, History of coronary bypass surgery, Abnormal Myoview Informed consent was obtained prior to the procedure. COMPLICATIONS NONE Estimated Blood Loss: LESS THAN 10 ML TECHNIQUE One percent lidocaine used to anesthetize the right groin. The right femoral artery was accessed via the Seldinger technique and a 5 [place] sheath was placed in the right femoral artery. A JL 4, JR4 catheter were used to perform left heart catheterization, left ventriculogram selective coronary angiography as well as selective engagement of the 3 vein grafts and the left internal mammary artery. At the end of the procedure the patient was transferred to the postop holding area in stable condition for sheath removal. ANGIOGRAPHIC RESULTS The left main artery Is patent The left anterior descending artery Proximally patent and then gives rise to a bifurcating moderate to severely diseased bifurcating first obtuse marginal artery where both branches are 1.5 mm in diameter or less The circumflex artery Is proximally patent and patent in the midsegment. It does not give off any substantive obtuse marginal arteries and terminates in the AV groove The right coronary artery Proximally occluded The CARRERA ventriculogram reveals Ejection fraction 45 to 50% The left ventricular end-diastolic pressure 10 mmHg JULIEN to LAD patent Saphenous vein graft to OM 1 patent Saphenous vein graft to diagonal system patent Saphenous to right coronary ostially occluded IMPRESSION Coronary artery disease as described above PLAN 1. Continue medical management Electronically signed by : Elliot Kramer MD 12/20/2024 14:10:01
[2024-12-20 11:01] LABS: Basophils # 0.1 K/mm3 (0-0.2); Basophils % 0.7 % (0.1-2.0); Eosinophils # 0.2 K/mm3 (0.0-0.4); Eosinophils % 2.8 % (0.1-12.0); Hematocrit 39.6 % (42.0-52.0); Hemoglobin 13.8 g/dL (14.1-18.0); Lymphocytes # 0.9 K/mm3 (0.7-4.5); Lymphocytes % 11.6 % (10-50); Mean Corpuscular HGB Conc 34.8 g/dL (31.8-35.4); Mean Corpuscular Hemoglobin 32.2 pg (27.0-31.2); Mean Corpuscular Volume 92.3 fl (80-94); Mean Platelet Volume 8.1 fl (7.4-10.4); Monocytes # 0.7 K/mm3 (0.1-1.0); Monocytes % 9.2 % (1.7-9.3); Neutrophils # 5.7 K/mm3 (1.8-7.8); Platelet Count 154 K/mm3 (142-424); Red Blood Count 4.29 M/mm3 (4.60-6.20); Red Cell Distribution Width 12.5 % (11.5-17.5); White Blood Count 7.6 K/mm3 (4.8-10.8)
[2024-12-20 11:05] LABS: Chloride 93 mmol/L (98-107); Sodium 128 mmol/L (136-145)
[2024-12-20 11:06] LABS: Potassium 4.8 mmoL/L (3.5-5.1)
[2024-12-20 11:08] LABS: Blood Urea Nitrogen 9 mg/dl (9-20); Creatinine Clearance Estimated 79 mL/min (50-200); Estimated Glomerular Filt Rate 80 ml/min (>60); GFR (African American) 97 ML/MIN (>60)
[2024-12-20 11:09] LABS: Anion Gap 9.8 mEq/L (5-15); Calcium 9.4 mg/dl (8.4-10.2); Carbon Dioxide 30 mmol/L (22.0-30.0); Glucose 103 mg/dl (74-100)
[2024-12-20] MEDS: HEPARIN 1,000 UNITS/500ML NS (CATH LAB) 3000 UNIT IV (13:32)
[2024-12-20] MEDS: LIDOCAINE 1% 10ML MDV 20 ML IJ (13:33)
[2024-12-20] MEDS: diphenhydrAMINE 50MG/ML VIAL 50 MG IV (13:34)
[2024-12-20] MEDS: 0.9 % SODIUM CHLORIDE 500 ML 25 ML IV (13:40)
[2024-12-20] MEDS: MIDAZOLAM HCL 1MG/ML 5ML VIAL 1 MG IV (14:02)
[2024-12-20] MEDS: FENTANYL 100MCG/2ML VIAL 50 MCG IV (14:02)
[2024-12-20] MEDS: IOPAMIDOL-370 (76%);100ML BOTTLE 60 ML IV (14:46)
== END 2024-12-20 16:53 | disposition home or self-care (01) ==
LOC: CATHLAB 10:33
PROVIDERS: PCP Family Medicine; Visit Provider Internal Medicine
DX: I25.10 Atherosclerotic heart disease of native coronary artery without angina pectoris (principal); R93.1 Abnormal findings on diagnostic imaging of heart and coronary circulation; R53.1 Weakness; R07.89 Other chest pain; I42.8 Other cardiomyopathies; Z95.1 Presence of aortocoronary bypass graft; Z79.899 Other long term (current) drug therapy; Z87.891 Personal history of nicotine dependence; I10 Essential (primary) hypertension; E87.1 Hypo-osmolality and hyponatremia
CPT/HCPCS: 36415; 80048; 85025; 93459; 99152; C1725; C1769; C1894; J1200; J1644; J3010; Q9967